=== PATIENT | male | born 1975 | race African-American/Black ===

== ENCOUNTER 2016-08-19 09:59 | Emergency (ER) | payer SELFPAY ==
[2016-08-19] MEDS ORDERED: ONDANSETRON ODT 4 MG TAB PO STA (11:20)
[2016-08-19] MEDS ORDERED: KETOROLAC 60 MG/2 ML VIAL IM STA (11:20)
[2016-08-19] MEDS ORDERED: ONDANSETRON 4 MG ODT STARTER PACK 2 TAB BTL PO STA (11:20)
--- NOTE | 2016-08-19 11:49 | ED ---
General Adult HPI - General Chief complaint: Chest Pain Stated complaint: Chest Pain Time Seen by Provider: 08/19/16 10:30 Source: patient, RN notes reviewed Mode of arrival: ambulatory Limitations: no limitations - History of Present Illness Initial comments: This is a 41-year-old male who presents to the emergency department complaining of anterior chest wall pain. Patient states it started yesterday and again as occurring today per patient states it only occurs when he takes a deep breath or he presses on the area on his left pectoris muscle. Patient states he also vomited twice today when he got to work he states he just became nauseous and started vomiting per patient denies any diarrhea. Patient denies any recent fevers or chills. Patient denies any cough or cold-like symptoms. Patient does not recall hurting his pectoral muscle in any way but states if he lays in bed and does not take a deep breath it does not hurt at all. Patient states the pain is sharp and short in duration lasting only one to 2 seconds at a time. - Related Data Home Medications Medication Instructions Recorded Confirmed Phenytoin Sodium Extended 400 mg PO DAILY 11/18/15 08/19/16 [Dilantin] Allergies Allergy/AdvReac Type Severity Reaction Status Date / Time No Known Allergies Allergy Verified 08/19/16 11:07 Review of Systems ROS Statement: Those systems with pertinent positive or pertinent negative responses have been documented in the HPI. ROS Other: All systems not noted in ROS Statement are negative. Past Medical History Past Medical History: Seizure Disorder History of Any Multi-Drug Resistant Organisms: None Reported Past Surgical History: Orthopedic Surgery Additional Past Surgical History / Comment(s): arm Past Psychological History: No Psychological Hx Reported Smoking Status: Current every day smoker Past Alcohol Use History: None Reported Past Drug Use History: None Reported General Exam - General Exam Comments Initial Comments: GENERAL: Patient is well-developed and well-nourished. Patient is nontoxic and well- hydrated and is in no acute distress. ENT: Neck is soft and supple. No significant lymphadenopathy is noted. Oropharynx is clear. Moist mucous membranes. Neck has full range of motion without eliciting any pain. EYES: The sclera were anicteric and conjunctiva were pink and moist. Extraocular movements were intact and pupils were equal round and reactive to light. Eyelids were unremarkable. PULMONARY: Unlabored respirations. Good breath sounds bilaterally. No audible rales rhonchi or wheezing was noted. CARDIOVASCULAR: There is a regular rate and rhythm without any murmurs gallops or rubs. Chest pain is reproducible on palpation ABDOMEN: Soft and nontender with normal bowel sounds. No palpable organomegaly was noted. There is no palpable pulsatile mass. SKIN: Skin is clear with no lesions or rashes and otherwise unremarkable. NEUROLOGIC: Patient is alert and oriented x3. Cranial nerves II through XII are grossly intact. Motor and sensory are also intact. Normal speech, volume and content. Symmetrical smile. MUSCULOSKELETAL: Normal extremities with adequate strength and full range of motion. No lower extremity swelling or edema. No calf tenderness. LYMPHATICS: No significant lymphadenopathy is noted PSYCHIATRIC: Normal psychiatric evaluation. Normal interpersonal interactions appears functionally intact in deals appropriately with others. No signs of depression. No signs of anxiety. Limitations: no limitations Course Vital Signs 08/19/16 08/19/16 08/19/16 10:26 11:19 11:27 Temperature 98.7 F Pulse Rate 71 65 Pulse Rate [ 60 Radial] Respiratory 18 15 Rate Blood Pressure 106/51 141/84 O2 Sat by Pulse 100 100 Oximetry Medical Decision Making - Medical Decision Making EKG shows a normal sinus rhythm at 66 bpm [place] interval is 148 QRS is 94 QT interval 3-4 QTC is 402. Patient's EKG shows no ST segment elevation or depression or T-wave abdomen is noted I spent greater than 3 minutes speaking to the patient about smoking cessation and the side effects of long-term smoking. I gave the patient some literature on stopping smoking as well as some ideas that I have. Disposition Clinical Impression: Chest wall pain Disposition: HOME SELF-CARE Instructions: Chest Wall Pain (ED), How to Stop Smoking (ED) Additional Instructions: Patient should take Motrin 600 mg by mouth every 6 hours. Patient should stop smoking. Referrals: None,Stated [Primary Care Provider] - 1-2 days Time of Disposition: 12:32
--- NOTE | 2016-08-19 12:02 | XR ---
EXAMINATION TYPE: XR chest 2V DATE OF EXAM: 08/19/2016 11:57 AM COMPARISON: NONE HISTORY: Chest pain and nausea. Difficulty in breathing. TECHNIQUE: Frontal and lateral views of the chest are obtained. FINDINGS: There is no focal air space opacity, pleural effusion, or pneumothorax seen. The cardiac silhouette size is within normal limits. The osseous structures are intact. IMPRESSION: No acute cardiopulmonary process.
[2016-08-19 12:44] VITALS: BP 99/62; PULSE 71; RESP 18; TEMP 98.2
== END 2016-08-19 12:43 | disposition home or self-care (01) ==
LOC: EC 09:59
DX: R07.89 Other chest pain (principal); R11.2 Nausea with vomiting, unspecified; F17.200 Nicotine dependence, unspecified, uncomplicated; G40.909 Epilepsy, unspecified, not intractable, without status epilepticus; Z79.899 Other long term (current) drug therapy
CPT/HCPCS: 93005; 71020; 99285; 96372; J1885; S0119

== ENCOUNTER 2016-09-23 14:12 | Emergency (ER) | payer BC ==
[2016-09-23 14:25] VITALS: BP 126/65; PULSE 78; RESP 16; TEMP 98.2
--- NOTE | 2016-09-23 14:37 | ED ---
Skin/Abscess/FB HPI - General Chief complaint: Skin/Abscess/Foreign Body Stated complaint: facial lump Time Seen by Provider: 09/23/16 14:23 Source: patient, RN notes reviewed Mode of arrival: ambulatory Limitations: no limitations - History of Present Illness Initial comments: 41-year-old male presents to the emergency Department chief complaint of left- sided facial abscess. Patient states that he has had this swollen area for the past few weeks. Patient states she's been applying the triple antibiotic ointment however it is not improving. Patient states has been no fever chills. Patient is more firm. Patient states she was concerned due to the continued symptoms that he should be evaluated.Patient denies any recent fever, chills, shortness of breath, chest pain, back pain, abdominal pain, nausea vomiting, numbness or tingling, dysuria or hematuria, constipation or diarrhea, headaches or visual changes, or any other current symptoms. - Related Data Home Medications Medication Instructions Recorded Confirmed Phenytoin Sodium Extended 400 mg PO DAILY 11/18/15 08/19/16 [Dilantin] Previous Rx's Medication Instructions Recorded Sulfamethox-Tmp 800-160Mg [Bactrim 2 each PO Q12HR #56 tab 09/23/16 DS 800-160 mg] Allergies Allergy/AdvReac Type Severity Reaction Status Date / Time No Known Allergies Allergy Verified 09/23/16 14:25 Review of Systems ROS Statement: Those systems with pertinent positive or pertinent negative responses have been documented in the HPI. ROS Other: All systems not noted in ROS Statement are negative. Past Medical History Past Medical History: Seizure Disorder History of Any Multi-Drug Resistant Organisms: None Reported Past Surgical History: Orthopedic Surgery Additional Past Surgical History / Comment(s): arm Past Psychological History: No Psychological Hx Reported Smoking Status: Current every day smoker Past Alcohol Use History: None Reported Past Drug Use History: None Reported General Exam Limitations: no limitations General appearance: alert, in no apparent distress Head exam: Present: other (Patient has a small abscess to the left cheek with some induration) Eye exam: Present: normal appearance, PERRL, EOMI. Absent: scleral icterus, conjunctival injection, periorbital swelling ENT exam: Present: normal exam, mucous membranes moist Neck exam: Present: normal inspection. Absent: tenderness, meningismus, lymphadenopathy Respiratory exam: Present: normal lung sounds bilaterally. Absent: respiratory distress, wheezes, rales, rhonchi, stridor Cardiovascular Exam: Present: regular rate, normal rhythm, normal heart sounds. Absent: systolic murmur, diastolic murmur, rubs, gallop, clicks Neurological exam: Present: alert, oriented X3 Psychiatric exam: Present: normal affect, normal mood Skin exam: Present: warm, dry Course Vital Signs 09/23/16 14:22 Temperature 98.2 F Pulse Rate 78 Respiratory 16 Rate Blood Pressure 126/65 O2 Sat by Pulse 99 Oximetry Medical Decision Making - Medical Decision Making 41-year-old female presents with left-sided facial abscess. This time 18-gauge needle was used to excise limited. Some purulent material. Patient was placed on antibiotics discussed warm compresses. We discussed care follow-up and return parameters. We discussed all the patient's questions. He stated he understood they are negative) Discharged home. Disposition Clinical Impression: Facial abscess Disposition: HOME SELF-CARE Condition: Stable Instructions: Abscess (ED) Additional Instructions: Please use medication as discussed. Please follow up with family doctor if symptoms have not improved over the next two days. Please return to the emergency room if your symptoms increase or worsen or for any other concerns. Prescriptions: Sulfamethox-Tmp 800-160Mg [Bactrim DS 800-160 mg] 2 each PO Q12HR #56 tab Referrals: None,Stated [Primary Care Provider] - 1-2 days Carmita Foote MD [STAFF PHYSICIAN] - 1-2 days Time of Disposition: 14:36
== END 2016-09-23 14:47 | disposition home or self-care (01) ==
LOC: EC 14:12
DX: L02.01 Cutaneous abscess of face (principal); G40.909 Epilepsy, unspecified, not intractable, without status epilepticus; F17.200 Nicotine dependence, unspecified, uncomplicated; Z79.899 Other long term (current) drug therapy
CPT/HCPCS: 10060; 99283

== ENCOUNTER 2017-09-08 15:18 | Emergency (ER) | payer BC ==
[2017-09-08 15:28] VITALS: RESP 20; TEMP 98.4
[2017-09-08 16:17] LABS: Basophils % (A) 0 %; Eosinophils % (A) 1 %; Lymphocytes # (A) 1.4 k/uL (1.0-4.8); Lymphocytes % (A) 37 %; MCH 27.2 pg (25.0-35.0); MCHC 32.6 g/dL (31.0-37.0); MCV 83.5 fL (80.0-100.0); Mean Platelet Volume 6.9; Monocytes # (A) 0.2 k/uL (0-1.0); Monocytes % (A) 6 %; Neutrophils % (A) 53 %; Platelet Count 268 k/uL (150-450); RBC 5.15 m/uL (4.30-5.90); RDW 13.6 % (11.5-15.5); WBC 3.8 k/uL (3.8-10.6)
[2017-09-08 16:30] LABS: ALT 30 U/L (21-72); AST 20 U/L (17-59); Albumin 4.4 g/dL (3.5-5.0); Alkaline Phosphatase 116 U/L (38-126); Anion Gap 9 mmol/L; Blood Urea Nitrogen 12 mg/dL (9-20); Calcium 9.6 mg/dL (8.4-10.2); Carbon Dioxide 27 mmol/L (22-30); Chloride 106 mmol/L (98-107); Glucose 95 mg/dL (74-99); Potassium 4.1 mmol/L (3.5-5.1); Sodium 142 mmol/L (137-145); Total Bilirubin 0.3 mg/dL (0.2-1.3); Total Protein 7.2 g/dL (6.3-8.2)
[2017-09-08] MEDS ORDERED: SODIUM CHLORIDE 0.9% 500 ML IV STA (16:46)
[2017-09-08] MEDS ORDERED: LORazepam 2 MG/ML INJ IV STA (16:46)
--- NOTE | 2017-09-08 16:52 | ED ---
General Adult HPI - General Chief complaint: Seizure Stated complaint: seizure Time Seen by Provider: 09/08/17 16:27 Source: patient, family, RN notes reviewed, old records reviewed Mode of arrival: wheelchair Limitations: no limitations - History of Present Illness Initial comments: Chief complaint history of present illness a 42-year-old male comes emergency room with his . Patient reports he has sensation is going to have a seizure. He can't describe exactly how it feels but he says in the past when he feels the way he does now he has had seizures. He is on Dilantin daily 300 in the morning 200 mg in the evening. He denies having missed any doses. He is denying any headache or chest pain or shortness breath GI/ problems. No injuries lately. He states he is fatigued because he works 6 days a week. He just gotten to work at 2 PM when he didn't feel well called his came in emergency room. - Related Data Home Medications Medication Instructions Recorded Confirmed Phenytoin Sodium Extended 200 mg PO HS 09/08/17 09/08/17 [Dilantin] Phenytoin Sodium Extended 300 mg PO DAILY 09/08/17 09/08/17 [Dilantin] Allergies Allergy/AdvReac Type Severity Reaction Status Date / Time No Known Allergies Allergy Verified 09/08/17 17:00 Review of Systems ROS Statement: Those systems with pertinent positive or pertinent negative responses have been documented in the HPI. review of systems. Minimal headache no visual acuity changes just doesn't feel well. No chest pain shortness breath GI/. No neuro deficits. His sensation of might have a seizure which she has had in the past. He's been having seizures for over 20 years. As noted above he takes Dilantin 300 mg morning and 200 mg in the evening. All systems were reviewed. Past medical problems significant for seizure disorder for the past 20 years no known cause. The patient's surgeries include orthopedic surgery on his right arm after having punched a window. The patient's family history no cancers. Patient denies any ALLERGIES. He does smoke and is encouraged to stop he denies alcohol use. ROS Other: All systems not noted in ROS Statement are negative. Past Medical History Past Medical History: Seizure Disorder History of Any Multi-Drug Resistant Organisms: None Reported Past Surgical History: Orthopedic Surgery Additional Past Surgical History / Comment(s): arm Past Anesthesia/Blood Transfusion Reactions: No Reported Reaction Past Psychological History: Depression Smoking Status: Current every day smoker Past Alcohol Use History: None Reported Past Drug Use History: None Reported - Past Family History Mother Family Medical History: No Reported History Father History Unknown: Yes General Exam - General Exam Comments Initial Comments: General: The patient is awake and alert, states he feels a might have a seizure., Just doesn't feel well. Vital signs show temp 98.4 pulse 70 respiratory rate 20 pulse ox on percent room air blood pressure 120/64 Eye: Pupils are equal, round and reactive to light, extra-ocular movements are intact ; there is normal conjunctiva bilaterally. No signs of icterus. Ears, nose, mouth and throat: There are moist mucous membranes . Neck: The neck is supple,chin to chest without discomfort, no meningismus. Cardiovascular: There is a regular rate and rhythm. No murmur, rub or gallop is appreciated. Respiratory: Lungs are clear to auscultation, respirations are non-labored, breath sounds are equal. No wheezes, stridor, rales, or rhonchi. Gastrointestinal: Soft, non-distended, non-tender abdomen without masses or organomegaly noted. There is no rebound or guarding present.denies flank pain Back: denies back pain Musculoskeletal: Normal ROM, no tenderness, There is no pedal edema. There is no calf tenderness or swelling. Sensation intact. evidence of extensive surgery on the right arm where years ago he punched a piece glass window. Neurological: CN II-XII intact, There are no obvious motor or sensory deficits. Coordination appears grossly intact. Speech is normal.no neuro deficits. Cranial nerves II through XII are intact. Skin: Skin is warm and dry and no rashes or lesions are noted. Psychiatric: flat affect. Limitations: no limitations Course Vital Signs 09/08/17 09/08/17 15:27 18:03 Temperature 98.4 F Pulse Rate 72 66 Respiratory 20 Rate Blood Pressure 120/64 133/68 O2 Sat by Pulse 100 99 Oximetry EKG Findings - EKG Comments: EKG Findings:: EKG was done and reviewed at 1651 showing normal sinus rhythm, no acute ST elevation or ectopy no ischemic changes. Rate 61. Was 152 QRS [address] Cunningham Medical Decision Making - Medical Decision Making medical decision making; the patient's here because he felt like he might have a seizure. He states she's felt this way before when he has had seizures. He takes Dilantin twice a day 300 mg morning 200 mg in the evening. While at work today he started feeling funny called his , she brought him to the emergency room. Patient states he has not missed any doses of his Dilantin. He does work 5-6 days per week and has been fatigued. Patient received IV fluids and 1 mg of Ativan. The patient's labs show white count of 3.8 hemoglobin 14 hematocrit of 43, potassium 4.1 with a BUN 12 creatinine 0.8 GFR greater than 90. Glucose 95. Dilantin level is 9.9. Therapeutic is between 10 and 20. The patient will receive 400 mg Dilantin IV piggyback. He is feeling better now than IV Ativan.Patient advised to call follow-up with his neurologist tomorrow concerning his dosages. - Lab Data Result diagrams: 09/08/17 16:08 09/08/17 16:08 Lab Results 09/08/17 09/08/17 09/08/17 Range/Units 16:08 16:08 16:08 WBC 3.8 (3.8-10.6) k/uL RBC 5.15 (4.30-5.90) m/uL Hgb 14.0 (13.0-17.5) gm/dL Hct 43.0 (39.0-53.0) % MCV 83.5 (80.0-100.0) fL MCH 27.2 (25.0-35.0) pg MCHC 32.6 (31.0-37.0) g/dL RDW 13.6 (11.5-15.5) % Plt Count 268 (150-450) k/uL Neutrophils % 53 % Lymphocytes % 37 % Monocytes % 6 % Eosinophils % 1 % Basophils % 0 % Neutrophils # 2.0 (1.3-7.7) k/uL Lymphocytes # 1.4 (1.0-4.8) k/uL Monocytes # 0.2 (0-1.0) k/uL Eosinophils # 0.0 (0-0.7) k/uL Basophils # 0.0 (0-0.2) k/uL Sodium 142 (137-145) mmol/L Potassium 4.1 (3.5-5.1) mmol/L Chloride 106 (98-107) mmol/L Carbon Dioxide 27 (22-30) mmol/L Anion Gap 9 mmol/L BUN 12 (9-20) mg/dL Creatinine 0.80 (0.66-1.25) mg/dL Est GFR (CKD-EPI)AfAm >90 (>60 ml/min/1.73 sqM) Est GFR (CKD-EPI)NonAf >90 (>60 ml/min/1.73 sqM) Glucose 95 (74-99) mg/dL Calcium 9.6 (8.4-10.2) mg/dL Total Bilirubin 0.3 (0.2-1.3) mg/dL AST 20 (17-59) U/L ALT 30 (21-72) U/L Alkaline Phosphatase 116 (38-126) U/L Total Protein 7.2 (6.3-8.2) g/dL Albumin 4.4 (3.5-5.0) g/dL Phenytoin 9.2 ug/mL Disposition Clinical Impression: Subtherapeutic phenytoin level Disposition: HOME SELF-CARE Condition: Fair Instructions: Epilepsy (ED) Additional Instructions: Continue with medications. Call neurologist to see if an increase in Dilantin is necessary. Try to get rest. Referrals: Carole Clark MD [Primary Care Provider] - 1-2 days Time of Disposition: 18:27
[2017-09-08] MEDS ORDERED: PHENYTOIN SODIUM INJ 400 MG in SODIUM CHLORIDE 0.9% 100 ML IVPB STA (17:37)
[2017-09-08 18:06] VITALS: BP 133/68; PULSE 66
== END 2017-09-08 18:39 | disposition home or self-care (01) ==
LOC: EC 15:18
DX: R89.2 Abnormal level of other drugs, medicaments and biological substances in specimens from other organs, systems and tissues (principal); R53.83 Other fatigue; G40.909 Epilepsy, unspecified, not intractable, without status epilepticus; F17.200 Nicotine dependence, unspecified, uncomplicated; Z79.899 Other long term (current) drug therapy
CPT/HCPCS: 36415; 93005; 80053; 80185; 85025; 99284; 96365; 96375; 96361; J2060; J1165

== ENCOUNTER 2017-10-14 09:50 | Observation (INO) | payer BC ==
[2017-10-14] MEDS ORDERED: LORazepam 2 MG/ML INJ IV STA ×2 (10:11→10:30)
[2017-10-14] MEDS ORDERED: SODIUM CHLORIDE 0.9% 1,000 ML IV STA (10:11)
[2017-10-14] MEDS ORDERED: METOCLOPRAMIDE 5 MG/ML 2 ML VIAL IVP STA (10:12)
--- NOTE | 2017-10-14 10:15 | ED ---
General Adult HPI - General Chief complaint: Headache Stated complaint: Seizure Time Seen by Provider: 10/14/17 10:04 Source: patient, family, RN notes reviewed, old records reviewed Mode of arrival: EMS Limitations: no limitations - History of Present Illness Initial comments: 42-year-old male with history of seizure disorder presents with chief complaint headache and concern for impending seizure. According to the patient's who does give the majority the history, he has been awake for the past 10 hours following a shift at work. His been restless, smoking cigarettes one after another. He does do this prior to seizure. He is currently on Dilantin. He does not believe he took his medication today. Patient has no other known medical history. Patient complains of a global headache which was gradual in onset. Denies fever or chills. Denies chest pain or shortness of breath. Denies any drugs of abuse. - Related Data Home Medications Medication Instructions Recorded Confirmed Phenytoin Sodium Extended 200 mg PO HS 09/08/17 10/14/17 [Dilantin] Phenytoin Sodium Extended 300 mg PO DAILY 09/08/17 10/14/17 [Dilantin] Allergies Allergy/AdvReac Type Severity Reaction Status Date / Time No Known Allergies Allergy Verified 10/14/17 10:22 Review of Systems ROS Statement: Those systems with pertinent positive or pertinent negative responses have been documented in the HPI. ROS Other: All systems not noted in ROS Statement are negative. Past Medical History Past Medical History: Seizure Disorder History of Any Multi-Drug Resistant Organisms: None Reported Past Surgical History: Orthopedic Surgery Additional Past Surgical History / Comment(s): arm Past Anesthesia/Blood Transfusion Reactions: No Reported Reaction Past Psychological History: Depression Smoking Status: Current every day smoker Past Alcohol Use History: None Reported Past Drug Use History: None Reported - Past Family History Mother Family Medical History: No Reported History Father History Unknown: Yes General Exam Limitations: no limitations General appearance: alert, in no apparent distress Head exam: Present: atraumatic, normocephalic Eye exam: Present: normal appearance. Absent: PERRL (Pupils are 2 mm and sluggish bilaterally) ENT exam: Present: mucous membranes dry Neck exam: Present: normal inspection. Absent: tenderness, meningismus Respiratory exam: Present: normal lung sounds bilaterally. Absent: respiratory distress, wheezes Cardiovascular Exam: Present: regular rate, normal rhythm GI/Abdominal exam: Present: soft. Absent: distended, tenderness Extremities exam: Present: normal inspection, normal capillary refill. Absent: pedal edema Neurological exam: Present: alert. Absent: oriented X3 (Oriented to person and place, not date), motor sensory deficit Psychiatric exam: Present: flat affect Skin exam: Present: warm, dry, intact. Absent: cyanosis, diaphoretic Course Vital Signs 10/14/17 10/14/17 10/14/17 09:55 10:54 12:37 Temperature 98.2 F Pulse Rate 76 104 H 87 Respiratory 16 16 16 Rate Blood Pressure 124/70 141/67 137/67 O2 Sat by Pulse 100 99 99 Oximetry - Reevaluation(s) Reevaluation #1: 10/14/17 10:36 Patient has 4 minute tonic-clonic seizure in the emergency department this was witnessed by myself. Given total of 3 mg of Ativan. Currently postictal. 10/14/17 10:36 EKG Findings - EKG Comments: EKG Findings:: EKG, sinus tachycardia, ventricular rate 104, MT interval 142, QRS duration 100, QTC 465, no arrhythmia or definitive signs of ischemia Medical Decision Making - Medical Decision Making 42-year-old male presenting with headache, concern for impending seizure. He did miss a dose of his Dilantin. Patient has a tonic-clonic seizure in the emergency department lasting approximate 45 minutes. This is reversed with 3 mg of IV Ativan. Laboratory studies reveal normal CBC, normal x-rays, Dilantin level is subtherapeutic at 5.4. Patient is given a 400 mg IV load of Dilantin in the emergency department. On reevaluation, patient remains postictal, he has not returned to baseline. is concerned as in the past when his Dilantin level has been low he has had multiple seizures. Patient will be placed in observation awaiting therapeutic Dilantin level and normal mental status. Head CT is obtained, negative for any acute intracranial pathology Diagnosis: Seizure, subtherapeutic Dilantin level, prolonged postictal Case is discussed with Dr. Arana, he will accept admission. - Lab Data Result diagrams: 10/14/17 10:06 10/14/17 10:06 Lab Results 10/14/17 10/14/17 Range/Units 10:06 10:06 WBC 3.8 (3.8-10.6) k/uL RBC 5.01 (4.30-5.90) m/uL Hgb 13.8 (13.0-17.5) gm/dL Hct 40.7 (39.0-53.0) % MCV 81.2 (80.0-100.0) fL MCH 27.5 (25.0-35.0) pg MCHC 33.8 (31.0-37.0) g/dL RDW 13.2 (11.5-15.5) % Plt Count 267 (150-450) k/uL Neutrophils % 60 % Lymphocytes % 27 % Monocytes % 9 % Eosinophils % 1 % Basophils % 0 % Neutrophils # 2.3 (1.3-7.7) k/uL Lymphocytes # 1.0 (1.0-4.8) k/uL Monocytes # 0.3 (0-1.0) k/uL Eosinophils # 0.0 (0-0.7) k/uL Basophils # 0.0 (0-0.2) k/uL Sodium 142 (137-145) mmol/L Potassium 3.5 (3.5-5.1) mmol/L Chloride 104 (98-107) mmol/L Carbon Dioxide 26 (22-30) mmol/L Anion Gap 12 mmol/L BUN 13 (9-20) mg/dL Creatinine 0.73 (0.66-1.25) mg/dL Est GFR (CKD-EPI)AfAm >90 (>60 ml/min/1.73 sqM) Est GFR (CKD-EPI)NonAf >90 (>60 ml/min/1.73 sqM) Glucose 110 H (74-99) mg/dL Calcium 9.1 (8.4-10.2) mg/dL Total Bilirubin 0.3 (0.2-1.3) mg/dL AST 30 (17-59) U/L ALT 36 (21-72) U/L Alkaline Phosphatase 102 (38-126) U/L Total Protein 6.6 (6.3-8.2) g/dL Albumin 4.0 (3.5-5.0) g/dL Salicylates <1.0 mg/dL Acetaminophen <10.0 ug/mL Phenytoin 5.4 ug/mL Disposition Clinical Impression: Generalized seizure, Postictal state Disposition: ADMITTED IP TO THIS [facility] Condition: Stable Referrals: Carole Clark MD [Primary Care Provider] - 1-2 days Decision to Admit Reason: Admit from EC Decision Date: 10/14/17 Decision Time: 12:36
[2017-10-14 10:26] LABS: Basophils % (A) 0 %; Eosinophils % (A) 1 %; HCT 40.7 % (39.0-53.0); HGB 13.8 gm/dL (13.0-17.5); Lymphocytes % (A) 27 %; MCH 27.5 pg (25.0-35.0); MCHC 33.8 g/dL (31.0-37.0); MCV 81.2 fL (80.0-100.0); Mean Platelet Volume 6.8; Monocytes # (A) 0.3 k/uL (0-1.0); Monocytes % (A) 9 %; Neutrophils # (A) 2.3 k/uL (1.3-7.7); Neutrophils % (A) 60 %; Platelet Count 267 k/uL (150-450); RBC 5.01 m/uL (4.30-5.90); RDW 13.2 % (11.5-15.5); WBC 3.8 k/uL (3.8-10.6)
[2017-10-14 10:33] LABS: ALT 36 U/L (21-72); AST 30 U/L (17-59); Acetaminophen <10.0 ug/mL; Alkaline Phosphatase 102 U/L (38-126); Anion Gap 12 mmol/L; Blood Urea Nitrogen 13 mg/dL (9-20); Calcium 9.1 mg/dL (8.4-10.2); Carbon Dioxide 26 mmol/L (22-30); Chloride 104 mmol/L (98-107); Glucose 110 mg/dL (74-99); Potassium 3.5 mmol/L (3.5-5.1); Salicylate <1.0 mg/dL; Sodium 142 mmol/L (137-145); Total Bilirubin 0.3 mg/dL (0.2-1.3); Total Protein 6.6 g/dL (6.3-8.2)
--- NOTE | 2017-10-14 11:17 | CT ---
EXAMINATION TYPE: CT brain wo con DATE OF EXAM: 10/14/2017 COMPARISON: Prior CT brain June 19, 2017 HISTORY: Seizure CT DLP: 1072.3 mGycm. Automated Exposure Control for Dose Reduction was Utilized. TECHNIQUE: CT scan of the head is performed without contrast. FINDINGS: There is no acute intracranial hemorrhage, mass effect, or midline shift identified. The ventricles and sulci are within normal limits in size. There is redemonstration of 1.1 cm mucous ret ention cyst or polyp in the anterior lateral right maxillary sinus on axial image 8. The globes are i ntact and the visualized sinuses otherwise are clear. Persistent soft tissue density right external a uditory canals felt to reflect cerumen. IMPRESSION: No acute intracranial hemorrhage or midline shift is seen. No significant change from pr ior.
[2017-10-14 11:22] LABS: Phenytoin (Dilantin) 5.4 ug/mL
[2017-10-14] MEDS ORDERED: PHENYTOIN SODIUM INJ 400 MG in SODIUM CHLORIDE 0.9% 100 ML IVPB STA (11:49)
[2017-10-14] MEDS ORDERED: NALOXONE 0.4 MG/ML 1 ML VIAL IV PRN (12:37)
[2017-10-14] MEDS ORDERED: LORazepam 2 MG/ML INJ IV PRN ×2 (12:38→16:48)
[2017-10-14] MEDS ORDERED: NICOTINE 21MG/24HR PATCH TRANSDERM STA (12:48)
[2017-10-14] MEDS ORDERED: IBUPROFEN 600 MG TAB PO SCH (16:00)
[2017-10-14] MEDS: IBUPROFEN 600 MG TAB PO PRN ×2 (16:26→23:01)
--- NOTE | 2017-10-14 17:49 | P.HPIM ---
History of Present Illness 42-year-old the female with came in with the seizures patient is up to be confined patient evidently has couple seizures from the clinic actively without any loss of bowel or bladder incontinence patient always has an aura and the patient today in ER patient had a tonic-clonic seizure which is evidenced by the ER physician . patient's Dilantin levels are subtherapeutic. Patient takes 300 in the morning and 200 mg in the evening Dilantin patient patient was loaded with Dilantin and was admitted to the floor patient will be resumed on his home dose tomorrow morning Dilantin levels will be obtained neurology will be consulted patient is on seizure precautions is also on as needed Ativan seizures patient denied any significant head trauma although he had had trauma when he was a cared and patient was diagnosed with seizures at age 20. Patient denied any fever chills nausea vomiting photophobia dysuria. Review of Systems REVIEW OF SYSTEMS: CONSTITUTIONAL: No fever, no malaise, no fatigue. HEENT: No recent visual problems or hearing problems. Denied any sore throat. CARDIOVASCULAR: No chest pain, orthopnea, PND, no palpitations, no syncope. PULMONARY: No shortness of breath, no cough, no hemoptysis. GASTROINTESTINAL: No diarrhea, no nausea, no vomiting, no abdominal pain. Normoactive bowel sounds. NEUROLOGICAL: No headaches, no weakness, no numbness. HEMATOLOGICAL: Denies any bleeding or petechiae. GENITOURINARY: Denies any burning micturition, frequency, or urgency. MUSCULOSKELETAL/RHEUMATOLOGICAL: Denies any joint pain, swelling, or any muscle pain. ENDOCRINE: Denies any polyuria or polydipsia. The rest of the 14-point review of systems is negative. Past Medical History Past Medical History: Seizure Disorder Additional Past Medical History / Comment(s): Last seizure 10/14/17, pt put R arm thru window glass and had injuries with severe blood loss and had to have CPR. History of Any Multi-Drug Resistant Organisms: None Reported Past Surgical History: Orthopedic Surgery Additional Past Surgical History / Comment(s): R arm/R hand surgery d/t injuries. Past Anesthesia/Blood Transfusion Reactions: No Reported Reaction Additional Past Anesthesia/Blood Transfusion Reaction / Comment(s): Pt received blood in past without reaction. Smoking Status: Current every day smoker - Past Family History Mother Family Medical History: No Reported History Additional Family Medical History / Comment(s): Mother is healthy. Father History Unknown: Yes Family Medical History: No Reported History Additional Family Medical History / Comment(s): Father is healthy Medications and Allergies Home Medications Medication Instructions Recorded Confirmed Type Phenytoin Sodium Extended 200 mg PO HS 09/08/17 10/14/17 History [Dilantin] Phenytoin Sodium Extended 300 mg PO DAILY 09/08/17 10/14/17 History [Dilantin] Allergies Allergy/AdvReac Type Severity Reaction Status Date / Time No Known Allergies Allergy Verified 10/14/17 10:22 Physical Exam Vitals: Vital Signs Temp Pulse Pulse Resp BP BP Pulse Ox 10/14/17 16:00 98 F 90 18 124/72 10/14/17 14:55 75 10/14/17 13:31 98.9 F 85 16 135/68 99 10/14/17 12:37 87 16 137/67 99 10/14/17 10:54 104 H 16 141/67 99 10/14/17 09:55 98.2 F 76 16 124/70 100 Intake and Output 10/14/17 10/14/17 10/14/17 06:59 14:59 22:59 Other: # Voids 2 # Bowel Movements 0 Weight 72.575 kg PHYSICAL EXAMINATION: GENERAL: The patient is alert and oriented x3, not in any acute distress. Well developed, well nourished. HEENT: Pupils are round and equally reacting to light. EOMI. No scleral icterus. No conjunctival pallor. Normocephalic, atraumatic. No pharyngeal erythema. No thyromegaly. CARDIOVASCULAR: S1 and S2 present. No murmurs, rubs, or gallops. PULMONARY: Chest is clear to auscultation, no wheezing or crackles. ABDOMEN: Soft, nontender, nondistended, normoactive bowel sounds. No palpable organomegaly. MUSCULOSKELETAL: No joint swelling or deformity. EXTREMITIES: No cyanosis, clubbing, or pedal edema. NEUROLOGICAL: Gross neurological examination did not reveal any focal deficits. SKIN: No rashes. Results CBC & Chem 7: 10/14/17 10:06 10/14/17 10:06 Labs: Abnormal Lab Results - Last 24 Hours (Table) 10/14/17 Range/Units 10:06 Glucose 110 H (74-99) mg/dL Thrombosis Risk Factor Assmnt - Choose All That Apply Any of the Below Risk Factors Present?: Yes Each Factor Represents 1 point: Heart failure (<1month) Other Risk Factors: No Other congenital or acquired thrombophilia - If yes, enter type in comment: No Thrombosis Risk Factor Assessment Total Risk Factor Score: 1 Thrombosis Risk Factor Assessment Level: Low Risk Assessment and Plan Plan: -Seizures: Secondary to subtherapeutic Dilantin. Patient says he does take his medications on regular basis. Neurology was consulted patient will be started back on Dilantin and was loaded with Dilantin. EEG was ordered -Nicotine abuse: Counseling was provided
[2017-10-14 17:56] LABS: Basophils % (A) 0 %; Eosinophils % (A) 1 %; HCT 38.3 % (39.0-53.0); HGB 12.8 gm/dL (13.0-17.5); Lymphocytes # (A) 1.4 k/uL (1.0-4.8); Lymphocytes % (A) 28 %; MCH 27.7 pg (25.0-35.0); MCHC 33.3 g/dL (31.0-37.0); Mean Platelet Volume 6.6; Monocytes # (A) 0.3 k/uL (0-1.0); Monocytes % (A) 6 %; Neutrophils # (A) 3.3 k/uL (1.3-7.7); Neutrophils % (A) 63 %; Platelet Count 262 k/uL (150-450); RBC 4.62 m/uL (4.30-5.90); RDW 13.2 % (11.5-15.5); WBC 5.2 k/uL (3.8-10.6)
[2017-10-14] MEDS: SODIUM CHLORIDE 0.9% 1,000 ML IV SCH (17:57)
[2017-10-14] MEDS ORDERED: PHENYTOIN SODIUM EXTENDED 100 MG CAP PO SCH (21:00)
[2017-10-15 00:02] LABS: Amphetamine Screen,Urine Not Detected (NotDetected); Barbiturate Screen,Urine Detected (NotDetected); Benzodiazepines Screen,Urine Detected (NotDetected); Cocaine Screen,Urine Not Detected (NotDetected); Methadone Screen, Urine Not Detected (NotDetected); Opiate Screen,Urine Not Detected (NotDetected); Oxycodone Screen, Urine Not Detected (NotDetected); Phencyclidine Screen,Urine Not Detected (NotDetected); Tricyclic Antidepressant,Urine Not Detected (NotDetected); Urn Cannabinoid Scrn Not Detected (NotDetected)
--- NOTE | 2017-10-15 06:30 | CONS ---
CONSULTATION DATE OF CONSULTATION: 10/14/2017 CHIEF COMPLAINT: Seizure. HISTORY OF PRESENT ILLNESS: Mr. Parikh is a 42-year-old, male, who is being evaluated by the neurology service per the request of Dr. Rhodes for a breakthrough seizure. The patient has a long-standing history of seizure disorder and is on Dilantin 300 mg q.a.m. and 200 mg at bedtime at home. The patient was brought into [facility] Emergency Room by his who noticed that he was not acting right. She was concerned because he sometimes feels this way prior to having a seizure. While in the waiting room, he had a generalized tonic colonic seizure. This was followed by postictal confusion and drowsiness. A CT scan of the brain was done, which was normal. His CBC and comprehensive metabolic profiles were normal. His Dilantin level was found to be subtherapeutic at 5.4. The patient was admitted for further workup and management and was given a loading dose of IV Dilantin. At the time of my evaluation, he is lying in his bed and appears to be in no acute distress. The patient states that he is usually compliant with his Dilantin dose, but sometimes is unable to take his medication due to his work hours. He has been restarted on his home dose. The patient is currently on seizure precautions and he has not had any further seizures since his admission. The patient does not drive. PAST MEDICAL HISTORY: Seizure disorder, history of orthopedic surgeries, depression. SOCIAL HISTORY: The patient is a current every day smoker. He denies any alcohol or drug use. FAMILY HISTORY: Noncontributory. HOME MEDICATIONS: Reviewed in the chart. ALLERGIES: No known drug allergies. REVIEW OF SYSTEMS: CONSTITUTIONAL: Positive for fatigue. EYES: Negative. ENT: Negative. CARDIOVASCULAR: Negative. RESPIRATORY: Negative. NEUROLOGICAL: As mentioned above. GASTROINTESTINAL: Negative. GENITOURINARY: Negative. PSYCHIATRIC: Positive for history of depression. MUSCULOSKELETAL: Negative. DERMATOLOGICAL: Negative. ENDOCRINE: Negative. PHYSICAL EXAM: Vital signs show a temperature of 98.9, pulse 75, respirations 16, blood pressure 135/68. GENERAL APPEARANCE: The patient is a well-developed, male who appears to be in no acute distress. HEENT: Normocephalic, atraumatic, no facial asymmetry is seen. Neck is supple with no masses felt. CARDIOVASCULAR: Regular rate and rhythm. ABDOMEN: Nontender, nondistended. Extremities showed no edema or clubbing. NEUROLOGICAL EXAM: The patient is alert, aware and oriented x3. Speech and language are normal. Strength is full in all 4 extremities. Sensory exam was normal to light touch in all 4 extremities. No facial asymmetry is seen on cranial nerve testing. No tremors or seizure-like activity is seen. IMPRESSION: 1. Uncontrolled seizures, generalized tonic-clonic type. 2. Subtherapeutic Dilantin level. 3. Tobacco dependence. RECOMMENDATION: The patient did have a breakthrough generalized tonic-clonic seizure. His Dilantin level was found to be subtherapeutic as mentioned above. The patient states that he sometimes has difficulty taking the medication twice daily due to his work schedule. He was advised to always have his Dilantin bottle on him and he was consulted extensively on the importance of medication compliance. I also discussed with him the option of being on a once daily antiepileptic medication. The patient does treat with Dr. Conrad Pruett and he will discuss this further with Dr. Pruett on his next follow-up visit. I will order a repeat Dilantin level in the morning. An EEG will be ordered. Continue neuro checks and seizure precautions. The patient does not drive. He was counseled on tobacco cessation. Continue the rest of your current workup and management. I will continue to follow with you. Further recommendations to follow. Thank you for allowing me to participate in the care of your patient. If you have any questions, please feel free to contact me. MMODL / IJN: [id number] /
[2017-10-15] MEDS ORDERED: PHENYTOIN SODIUM EXTENDED 100 MG CAP PO SCH (09:00)
[2017-10-15 09:19] LABS: ALT 26 U/L (21-72); AST 25 U/L (17-59); Albumin 3.2 g/dL (3.5-5.0); Alkaline Phosphatase 85 U/L (38-126); Anion Gap 9 mmol/L; Blood Urea Nitrogen 8 mg/dL (9-20); Calcium 8.7 mg/dL (8.4-10.2); Carbon Dioxide 26 mmol/L (22-30); Chloride 108 mmol/L (98-107); Glucose 90 mg/dL (74-99); Potassium 3.6 mmol/L (3.5-5.1); Sodium 143 mmol/L (137-145); Total Bilirubin 0.2 mg/dL (0.2-1.3); Total Protein 5.6 g/dL (6.3-8.2)
[2017-10-15] MEDS ORDERED: PHENYTOIN SODIUM INJ 500 MG in SODIUM CHLORIDE 0.9% 100 ML IVPB STA (12:10)
[2017-10-15] MEDS ORDERED: PHENYTOIN SODIUM INJ 1,000 MG in SODIUM CHLORIDE 0.9% 100 ML IVPB STA (12:51)
[2017-10-15] MEDS: SODIUM CHLORIDE 0.9% 1,000 ML IV SCH (13:22)
[2017-10-15] MEDS ORDERED: PHENYTOIN SODIUM INJ 500 MG in SODIUM CHLORIDE 0.9% 100 ML IVPB ONE (13:30)
[2017-10-15 15:58] VITALS: BP 107/74; PULSE 79; TEMP 98.7
--- NOTE | 2017-10-15 16:21 | P.PN ---
Subjective Progress Note Date: 10/15/17 Patient is a pleasant 42-year-old -Citizen Of [place] male who is being followed by the neurology service for seizure. Patient has a long-standing history of seizure disorder and has been on Dilantin 300 mg in the morning and 200 mg at bedtime. Patient had a witnessed tonic clonic seizure in the emergency room. This was followed by postictal confusion and drowsiness. Computed tomography scan of the brain was done which was normal. Patient was admitted for further workup. Patient was loaded with IV Dilantin and had a sudden repeat a level following. Patient was given another loading dose of Dilantin and level is therapeutic at this time. At the time of my evaluation, patient states he is back to baseline and is resting comfortably in bed and appears to be in no acute distress. No further seizures have been reported. Objective - Vital Signs Vital signs: Vital Signs Temp 98.7 F 10/15/17 15:21 Pulse 79 10/15/17 15:21 Resp 16 10/15/17 15:21 BP 107/74 10/15/17 15:21 Pulse Ox 100 10/15/17 15:21 Intake & Output 10/14/17 10/15/17 10/15/17 18:59 06:59 18:59 Intake Total 125 600 Balance 125 600 Weight 72.575 kg 70.5 kg Intake: Oral 125 600 Other: Voiding Method Toilet Toilet # Voids 2 1 2 # Bowel Movements 0 0 - Exam PHYSICAL EXAM: GENERAL APPEARANCE: Patient is a well-developed -Citizen Of [place] male who appears to be in no acute distress. HEENT: Normocephalic, atraumatic, no facial asymmetry is seen. Neck is supple with no masses felt. CARDIOVASCULAR: Regular rate and rhythm. ABDOMEN: Nontender, nondistended. EXTREMITIES: Show no edema or clubbing. NEUROLOGICAL EXAM: Patient is awake, alert, and oriented 3. Speech and language are normal. Strength is full in all 4 extremities. Sensory exam to light touch is normal in all 4 extremities. No facial asymmetry is seen on cranial nerve testing. No tremors or seizure-like activity noted. - Labs CBC & Chem 7: 10/14/17 17:27 10/15/17 08:10 Labs: Abnormal Lab Results - Last 24 Hours (Table) 10/14/17 10/14/17 10/15/17 Range/Units 17:27 22:45 08:10 Hgb 12.8 L (13.0-17.5) gm/dL Hct 38.3 L (39.0-53.0) % Chloride 108 H (98-107) mmol/L BUN 8 L (9-20) mg/dL Total Protein 5.6 L (6.3-8.2) g/dL Albumin 3.2 L (3.5-5.0) g/dL Ur Barbiturates Screen Detected H (NotDetected) Phenytoin ug/mL U Benzodiazepines Scrn Detected H (NotDetected) 10/15/17 Range/Units 15:27 Hgb (13.0-17.5) gm/dL Hct (39.0-53.0) % Chloride (98-107) mmol/L BUN (9-20) mg/dL Total Protein (6.3-8.2) g/dL Albumin (3.5-5.0) g/dL Ur Barbiturates Screen (NotDetected) Phenytoin 21.7 H* ug/mL U Benzodiazepines Scrn (NotDetected) Assessment and Plan Plan: Impression: 1. Uncontrolled seizures, general tonic-clonic type 2. Subtherapeutic Dilantin level 3. Tobacco dependence Recommendations: Patient did have generalized tonic-clonic breakthrough seizure. His Dilantin level was found to be subtherapeutic. Patient was loaded with Dilantin and now has therapeutic level. I had a lengthy discussion with patient regarding once a day dosing of antiepileptic medication. He will discuss this with his neurologist Dr. Pruett. Patient is stable from a neurological standpoint for discharge. He is to continue current home dose of Dilantin. He is to follow-up with Dr. Pruett in a week. Patient does not drive. I will continue to follow with you on an as-needed basis. Feel free to call with any questions or concerns. I performed an examination of the patient and discussed the management with the FARM ASSISTANT. I have reviewed the FARM ASSISTANT notes and agree with the findings and plan of care.
[2017-10-15 16:36] VITALS: RESP 18
--- NOTE | 2017-10-15 18:51 | EEG ---
ELECTROENCEPHALOGRAM REPORT DATE OF SERVICE: 10/15/2017 REASON FOR TESTING: Seizure. DESCRIPTION OF THE PROCEDURE: This EEG was performed using a 21-channel digital electroencephalograph, following international 10-20 system. CURRENT ANTIEPILEPTIC MEDICATIONS: Dilantin. DESCRIPTION OF THE RECORDING: From the beginning of the tracing, and with the patient's eyes closed, the background rhythm was mostly consisting of 9 Hz alpha frequency in the posterior occipital leads. No obvious asymmetry is seen. Frequent muscle and movement artifacts are seen. Photic stimulation was performed with a good driving response seen. No pathological waves were elicited. Hyperventilation was performed with a minimal buildup of amplitude seen. Again, no pathological waves were elicited. The patient remains awake throughout the tracing. No epileptiform discharges were seen. His EKG lead showed a regular rate and rhythm. INTERPRETATION: This awake EEG can be considered within normal limits. There was no asymmetry seen. No epileptiform discharges were noticed. The absence of epileptiform discharges does not rule out the diagnosis of epilepsy; therefore clinical correlation is recommended. MARVIN / JONELN: [id number] /
--- NOTE | 2017-10-16 12:45 | P.DS ---
Providers Date of admission: 10/14/17 12:38 Expected date of discharge: 10/15/17 Attending physician: Vasyl Rhodes Consults: 10/14/17 12:37 Consult Physician Urgent Consulting Provider: Nay Klely Consult Reason/Comments: Seizure, prolonged postictal Do you want consulting provider notified?: Yes Primary care physician: Eduardo Lam [facility] Course: 42-year-old admitted secondary to breakthrough seizures due to subtherapeutic Dilantin levels patient was loaded with Dilantin his a level subtherapeutic now patient is cleared for discharge to follow up with his neurologist as an outpatient no changes are making made in his Dilantin dose. PHYSICAL EXAMINATION: GENERAL: The patient is alert and oriented x3, not in any acute distress. Well developed, well nourished. HEENT: Pupils are round and equally reacting to light. EOMI. No scleral icterus. No conjunctival pallor. Normocephalic, atraumatic. No pharyngeal erythema. No thyromegaly. CARDIOVASCULAR: S1 and S2 present. No murmurs, rubs, or gallops. PULMONARY: Chest is clear to auscultation, no wheezing or crackles. ABDOMEN: Soft, nontender, nondistended, normoactive bowel sounds. No palpable organomegaly. MUSCULOSKELETAL: No joint swelling or deformity. EXTREMITIES: No cyanosis, clubbing, or pedal edema. NEUROLOGICAL: Gross neurological examination did not reveal any focal deficits. SKIN: No rashes. Patient Condition at Discharge: Stable Plan - Discharge Summary Discharge Rx Participant: No New Discharge Prescriptions: Continue Phenytoin Sodium Extended [Dilantin] 300 mg PO DAILY Phenytoin Sodium Extended [Dilantin] 200 mg PO HS Discharge Medication List Phenytoin Sodium Extended [Dilantin] 200 mg PO HS 09/08/17 [History] Phenytoin Sodium Extended [Dilantin] 300 mg PO DAILY 09/08/17 [History] Follow up Appointment(s)/Referral(s): Carole Clark MD [Primary Care Provider] - 10/19/17 3:40 pm (Thursday) Garfield Pruett MD [STAFF PHYSICIAN] - 10/28/17 9:40 am (Thursday, previously scheduled appointment) Discharge/Stand Alone Forms: Work/Release Restrictions Form Discharge Disposition: HOME SELF-CARE
== END 2017-10-15 17:30 | disposition home or self-care (01) ==
LOC: EC 09:50 → 6SEL 12:38
PROVIDERS: ADMIT Hospitalist; ATTEND Hospitalist
DX: G40.409 Other generalized epilepsy and epileptic syndromes, not intractable, without status epilepticus (principal); T42.0X6A Underdosing of hydantoin derivatives, initial encounter; Z91.128 Patient's intentional underdosing of medication regimen for other reason; F32.9 Major depressive disorder, single episode, unspecified; F17.210 Nicotine dependence, cigarettes, uncomplicated; Z79.899 Other long term (current) drug therapy
CPT/HCPCS: 96375 ×3; 96361 ×3; 96376 ×2; 96365 ×2; 99285 ×2; 96366; 36415; 95816; 93005; 80053 ×2; 80185 ×2; 85025; 80306; 83520 ×2; 70450; G0378 ×2; S4990; J2060; J1165 ×2; J2765

== ENCOUNTER 2017-11-04 08:53 | Emergency (ER) | payer BC ==
--- NOTE | 2017-11-04 09:32 | ED ---
Upper Extremity HPI - General Chief Complaint: Extremity Injury, Upper Stated Complaint: Hand/Arm Pain Time Seen by Provider: 11/04/17 09:22 Source: patient, RN notes reviewed Mode of arrival: ambulatory Limitations: no limitations - History of Present Illness Initial Comments: Is a 42-year-old male presents emergency Department chief complaint of right hand pain and swelling. Patient states has been present for last couple weeks. Patient states it started after receiving IV. Patient was seen in the ER so that he has superficial Phlebitis. He's been taking ibuprofen, warm compresses no improvement. He states it pain is slightly rating into his arm. Complains of Paresthesias. Patient Denies Weakness. Patient Denies Any New Injury No Fever No Chills. Denies Any Warmth There. - Related Data Home Medications Medication Instructions Recorded Confirmed Phenytoin Sodium Extended 200 mg PO HS 09/08/17 11/04/17 [Dilantin] Phenytoin Sodium Extended 300 mg PO QAM 09/08/17 11/04/17 [Dilantin] Previous Rx's Medication Instructions Recorded Ibuprofen [Motrin] 600 mg PO Q8HR PRN #30 tab 11/04/17 Allergies Allergy/AdvReac Type Severity Reaction Status Date / Time No Known Allergies Allergy Verified 11/04/17 09:37 Review of Systems ROS Statement: Those systems with pertinent positive or pertinent negative responses have been documented in the HPI. ROS Other: All systems not noted in ROS Statement are negative. Past Medical History Past Medical History: Seizure Disorder Additional Past Medical History / Comment(s): Last seizure 10/14/17, History of Any Multi-Drug Resistant Organisms: None Reported Past Surgical History: Orthopedic Surgery Additional Past Surgical History / Comment(s): R arm/R hand surgery d/t injuries. Past Anesthesia/Blood Transfusion Reactions: No Reported Reaction Additional Past Anesthesia/Blood Transfusion Reaction / Comment(s): Pt received blood in past without reaction. Past Psychological History: Anxiety, Depression Smoking Status: Current every day smoker Past Alcohol Use History: None Reported Past Drug Use History: None Reported - Past Family History Mother Family Medical History: No Reported History Additional Family Medical History / Comment(s): Mother is healthy. Father History Unknown: Yes Family Medical History: No Reported History Additional Family Medical History / Comment(s): Father is healthy General Exam Limitations: no limitations General appearance: alert, in no apparent distress Respiratory exam: Present: normal lung sounds bilaterally. Absent: respiratory distress, wheezes, rales, rhonchi, stridor Cardiovascular Exam: Present: regular rate, normal rhythm, normal heart sounds. Absent: systolic murmur, diastolic murmur, rubs, gallop, clicks Extremities exam: Present: other (Right hand swelling noted on the dorsal aspect. Patient has mild tenderness pain with Phalen's test. Patient has equal paper supervisor strength 5/5 neurovascular intact) Neurological exam: Present: reflexes normal. Absent: motor sensory deficit Skin exam: Present: warm, dry, intact, normal color. Absent: rash Course Vital Signs 11/04/17 08:54 Temperature 98.5 F Pulse Rate 74 Respiratory 18 Rate Blood Pressure 117/76 O2 Sat by Pulse 100 Oximetry Medical Decision Making - Medical Decision Making 42-year-old male presents from for right hand swelling. Patient is concerned has a has not improved with the last couple weeks. Patient had an ultrasound in the emergency Department shows superficial phlebitis and he's been told the past. Patient continued on anti-inflammatories warm compresses. Patient follow -up with orthopedics for his carpal tunnel. Return parameters discussed. Disposition Clinical Impression: Superficial thrombophlebitis, Carpal tunnel syndrome Disposition: HOME SELF-CARE Condition: Stable Instructions: Superficial Thrombophlebitis (ED) Additional Instructions: Please return to the Emergency Department if symptoms worsen or any other concerns. Prescriptions: Ibuprofen [Motrin] 600 mg PO Q8HR PRN #30 tab PRN Reason: Pain Is patient prescribed a controlled substance at d/c from ED?: No Referrals: Carole Clark MD [Primary Care Provider] - 1-2 days Akira Walker MD [STAFF PHYSICIAN] - 1-2 days Time of Disposition: 11:19
--- NOTE | 2017-11-04 10:13 | XR ---
EXAMINATION TYPE: XR hand complete RT DATE OF EXAM: 11/04/2017 COMPARISON: NONE HISTORY: Pain TECHNIQUE: Three views are submitted. FINDINGS: The osseous structures are intact. The joint spaces are preserved and there is no acute fracture or dislocation. IMPRESSION: 1. No definite acute fracture or dislocation if symptoms persist, follow-up study in 7 to 10 days wo uld be suggested
--- NOTE | 2017-11-04 11:06 | US ---
EXAMINATION TYPE: US venous doppler duplex UE RT DATE OF EXAM: 11/04/2017 COMPARISON: NONE CLINICAL HISTORY: 42-year-old male Pain, swelling. Patient had an IV in his right hand about 2 weeks ago, pain and swelling since. SIDE PERFORMED: Right Technique: Grayscale, color doppler, spectral doppler imaging performed of the deep veins of the upp er extremities. FINDINGS: Right Arm: There is normal flow, compressibility and vascular waveforms of the internal jugular vein, axillary, brachial, paired ulnar/radial veins, as well as the superficial cephalic and basilic veins. Negative for DVT. Positive for superficial thrombosis at the area of the patient's recent IV site on the top of his amato d IMPRESSION: Exam positive for superficial thrombosis at the patient's recent IV site along the dorsum of the hand . No evidence for right upper extremity DVT.
[2017-11-04 11:40] VITALS: BP 111/65; PULSE 66; RESP 16; TEMP 98
== END 2017-11-04 11:40 | disposition home or self-care (01) ==
LOC: EC 08:53
DX: I80.8 Phlebitis and thrombophlebitis of other sites (principal); G56.01 Carpal tunnel syndrome, right upper limb; F17.200 Nicotine dependence, unspecified, uncomplicated; G40.909 Epilepsy, unspecified, not intractable, without status epilepticus; Z79.1 Long term (current) use of non-steroidal anti-inflammatories (NSAID); Z79.899 Other long term (current) drug therapy; Z98.890 Other specified postprocedural states
CPT/HCPCS: 99284

== ENCOUNTER → 2017-12-07 | Outpatient (CLI) | payer BC | END | disposition home or self-care (01) | LOC: LABWHC1 09:31 | PROVIDERS: ATTEND Psychiatry & Neurology Neurology | DX: G40.209 Localization-related (focal) (partial) symptomatic epilepsy and epileptic syndromes with complex partial seizures, not intractable, without status epilepticus (principal) | CPT/HCPCS: 36415; 80177 ==

== ENCOUNTER 2018-04-16 08:35 | Emergency (ER) | payer BC ==
[2018-04-16 08:57] VITALS: RESP 18
[2018-04-16] MEDS ORDERED: SODIUM CHLORIDE 0.9% 1,000 ML IV STA (09:05)
[2018-04-16] MEDS ORDERED: ONDANSETRON 4 MG/2 ML VIAL IVP STA (09:05)
[2018-04-16] MEDS ORDERED: LORazepam 2 MG/ML INJ IV STA (09:06)
--- NOTE | 2018-04-16 09:09 | ED ---
General Adult HPI - General Chief complaint: Seizure Stated complaint: seizure Time Seen by Provider: 04/16/18 08:35 Source: patient, RN notes reviewed Mode of arrival: wheelchair Limitations: no limitations - History of Present Illness Initial comments: This is a 43-year-old male who presents emergency department with past medical history significant for seizures. Patient states he takes Keppra daily and has not missed any doses. Patient states that he got to work he started vomiting and shortly thereafter he started feeling like he might have a seizure. Patient states she's been having seizures for 20 years and he knows when the seizures come on. Patient states he has yet to have a seizure but he still feels as though he might. Patient states he felt a little dizzy and continued to be nauseous. Patient states he had no abdominal pain. Patient had no diarrhea. Patient denies any chest pain difficulty breathing shortest breath. Patient denies any recent fever chills or cough. Patient states she has a mild headache at this time. Patient denies any visual disturbance or any speech disturbance. Patient denies any numbness or weakness. - Related Data Home Medications Medication Instructions Recorded Confirmed levETIRAcetam [Keppra] 750 mg PO BID 04/16/18 04/16/18 Allergies Allergy/AdvReac Type Severity Reaction Status Date / Time No Known Allergies Allergy Verified 04/16/18 09:38 Review of Systems ROS Statement: Those systems with pertinent positive or pertinent negative responses have been documented in the HPI. ROS Other: All systems not noted in ROS Statement are negative. Past Medical History Past Medical History: Seizure Disorder Additional Past Medical History / Comment(s): Last seizure 10/14/17, History of Any Multi-Drug Resistant Organisms: None Reported Past Surgical History: Orthopedic Surgery Additional Past Surgical History / Comment(s): R arm/R hand surgery d/t injuries. Past Anesthesia/Blood Transfusion Reactions: No Reported Reaction Additional Past Anesthesia/Blood Transfusion Reaction / Comment(s): Pt received blood in past without reaction. Past Psychological History: Anxiety, Depression Smoking Status: Current every day smoker Past Alcohol Use History: None Reported Past Drug Use History: None Reported - Past Family History Mother Family Medical History: No Reported History Additional Family Medical History / Comment(s): Mother is healthy. Father History Unknown: Yes Family Medical History: No Reported History Additional Family Medical History / Comment(s): Father is healthy General Exam - General Exam Comments Initial Comments: GENERAL: Patient is well-developed and well-nourished. Patient is nontoxic and well- hydrated and is in mild distress. ENT: Neck is soft and supple. No significant lymphadenopathy is noted. Oropharynx is clear. Moist mucous membranes. Neck has full range of motion without eliciting any pain. EYES: The sclera were anicteric and conjunctiva were pink and moist. Extraocular movements were intact and pupils were equal round and reactive to light. Eyelids were unremarkable. PULMONARY: Unlabored respirations. Good breath sounds bilaterally. No audible rales rhonchi or wheezing was noted. CARDIOVASCULAR: There is a regular rate and rhythm without any murmurs gallops or rubs. ABDOMEN: Soft and nontender with normal bowel sounds. No palpable organomegaly was noted. There is no palpable pulsatile mass. SKIN: Skin is clear with no lesions or rashes and otherwise unremarkable. NEUROLOGIC: Patient is alert and oriented x3. Cranial nerves II through XII are grossly intact. Motor and sensory are also intact. Normal speech, volume and content. Symmetrical smile. MUSCULOSKELETAL: Normal extremities with adequate strength and full range of motion. LYMPHATICS: No significant lymphadenopathy is noted PSYCHIATRIC: Normal psychiatric evaluation. Normal interpersonal interactions appears functionally intact in deals appropriately with others. No signs of depression. No signs of anxiety. Limitations: no limitations Course Vital Signs 04/16/18 08:53 Temperature 98.5 F Pulse Rate 63 Respiratory 18 Rate Blood Pressure 116/59 O2 Sat by Pulse 100 Oximetry Medical Decision Making - Medical Decision Making EKG shows normal sinus rhythm at 61 bpm [place] interval is on a 52 QRS is 98 QT interval 390 QTC is 392. Patient's EKG shows no ST segment elevation or depression or T wave abnormalities are noted. - Lab Data Result diagrams: 04/16/18 09:22 04/16/18 09:22 Lab Results 04/16/18 04/16/18 04/16/18 Range/Units 09:22 09:22 09:22 WBC 3.5 L (3.8-10.6) k/uL RBC 5.30 (4.30-5.90) m/uL Hgb 14.2 (13.0-17.5) gm/dL Hct 43.9 (39.0-53.0) % MCV 82.9 (80.0-100.0) fL MCH 26.7 (25.0-35.0) pg MCHC 32.3 (31.0-37.0) g/dL RDW 13.8 (11.5-15.5) % Plt Count 263 (150-450) k/uL Neutrophils % 54 % Lymphocytes % 37 % Monocytes % 6 % Eosinophils % 2 % Basophils % 0 % Neutrophils # 1.9 (1.3-7.7) k/uL Lymphocytes # 1.3 (1.0-4.8) k/uL Monocytes # 0.2 (0-1.0) k/uL Eosinophils # 0.1 (0-0.7) k/uL Basophils # 0.0 (0-0.2) k/uL Sodium 142 (137-145) mmol/L Potassium 4.6 (3.5-5.1) mmol/L Chloride 110 H (98-107) mmol/L Carbon Dioxide 25 (22-30) mmol/L Anion Gap 7 mmol/L BUN 12 (9-20) mg/dL Creatinine 0.86 (0.66-1.25) mg/dL Est GFR (CKD-EPI)AfAm >90 (>60 ml/min/1.73 sqM) Est GFR (CKD-EPI)NonAf >90 (>60 ml/min/1.73 sqM) Glucose 93 (74-99) mg/dL Calcium 9.1 (8.4-10.2) mg/dL Total Bilirubin 0.4 (0.2-1.3) mg/dL AST 29 (17-59) U/L ALT 28 (21-72) U/L Alkaline Phosphatase 61 (38-126) U/L Total Protein 7.6 (6.3-8.2) g/dL Albumin 4.4 (3.5-5.0) g/dL Amylase 82 (30-110) U/L Lipase 28 (23-300) U/L Urine Opiates Screen Not Detected (NotDetected) Ur Oxycodone Screen Not Detected (NotDetected) Urine Methadone Screen Not Detected (NotDetected) Ur Propoxyphene Screen Not Detected (NotDetected) Ur Barbiturates Screen Not Detected (NotDetected) U Tricyclic Antidepress Not Detected (NotDetected) Ur Phencyclidine Scrn Not Detected (NotDetected) Ur Amphetamines Screen Not Detected (NotDetected) U Methamphetamines Scrn Not Detected (NotDetected) U Benzodiazepines Scrn Not Detected (NotDetected) Urine Cocaine Screen Not Detected (NotDetected) U Marijuana (THC) Screen Not Detected (NotDetected) Disposition Clinical Impression: Acute vomiting, History of seizures Disposition: HOME SELF-CARE Condition: Good Instructions: Acute Nausea and Vomiting (ED) Is patient prescribed a controlled substance at d/c from ED?: No Referrals: Carole Clark MD [Primary Care Provider] - 1-2 days Time of Disposition: 10:35
[2018-04-16 09:35] LABS: Basophils % (A) 0 %; Eosinophils # (A) 0.1 k/uL (0-0.7); Eosinophils % (A) 2 %; HCT 43.9 % (39.0-53.0); HGB 14.2 gm/dL (13.0-17.5); Lymphocytes # (A) 1.3 k/uL (1.0-4.8); Lymphocytes % (A) 37 %; MCH 26.7 pg (25.0-35.0); MCHC 32.3 g/dL (31.0-37.0); MCV 82.9 fL (80.0-100.0); Mean Platelet Volume 6.7; Monocytes # (A) 0.2 k/uL (0-1.0); Monocytes % (A) 6 %; Neutrophils # (A) 1.9 k/uL (1.3-7.7); Neutrophils % (A) 54 %; Platelet Count 263 k/uL (150-450); RDW 13.8 % (11.5-15.5); WBC 3.5 k/uL (3.8-10.6)
[2018-04-16 09:55] LABS: Albumin 4.4 g/dL (3.5-5.0); Amylase 82 U/L (30-110); Anion Gap 7 mmol/L; Blood Urea Nitrogen 12 mg/dL (9-20); Calcium 9.1 mg/dL (8.4-10.2); Carbon Dioxide 25 mmol/L (22-30); Chloride 110 mmol/L (98-107); Glucose 93 mg/dL (74-99); Lipase 28 U/L (23-300); Sodium 142 mmol/L (137-145); Total Bilirubin 0.4 mg/dL (0.2-1.3); Total Protein 7.6 g/dL (6.3-8.2)
[2018-04-16 10:05] LABS: ALT 28 U/L (21-72); AST 29 U/L (17-59); Alkaline Phosphatase 61 U/L (38-126); Potassium 4.6 mmol/L (3.5-5.1)
[2018-04-16 10:14] LABS: Amphetamine Screen,Urine Not Detected (NotDetected); Barbiturate Screen,Urine Not Detected (NotDetected); Benzodiazepines Screen,Urine Not Detected (NotDetected); Cocaine Screen,Urine Not Detected (NotDetected); Methadone Screen, Urine Not Detected (NotDetected); Opiate Screen,Urine Not Detected (NotDetected); Oxycodone Screen, Urine Not Detected (NotDetected); Phencyclidine Screen,Urine Not Detected (NotDetected); Tricyclic Antidepressant,Urine Not Detected (NotDetected); Urn Cannabinoid Scrn Not Detected (NotDetected)
[2018-04-16] MEDS ORDERED: ONDANSETRON 4 MG ODT STARTER PACK 2 TAB BTL PO STA (10:35)
[2018-04-16 11:17] VITALS: BP 115/67; PULSE 69; TEMP 97.9
== END 2018-04-16 11:23 | disposition home or self-care (01) ==
LOC: EC 08:35
DX: G40.909 Epilepsy, unspecified, not intractable, without status epilepticus (principal); R11.2 Nausea with vomiting, unspecified; R51 Headache; R42 Dizziness and giddiness; F17.200 Nicotine dependence, unspecified, uncomplicated; Z79.899 Other long term (current) drug therapy
CPT/HCPCS: 36415; 80053; 80177; 82150; 83690; 85025; 80306; 99284; 96374; 96375; 96361 ×2; J2060; J2405; S0119

== ENCOUNTER 2018-05-07 17:25 | Emergency (ER) | payer BC ==
--- NOTE | 2018-05-07 17:45 | ED ---
General Adult HPI - General Chief complaint: Urogenital Stated complaint: Blood in urine Time Seen by Provider: 05/07/18 17:34 Source: patient Mode of arrival: ambulatory Limitations: no limitations - History of Present Illness Initial comments: 43-year-old male patient presents to the emergency department today for evaluation of hematuria and pain to his bilateral groin and anterior thighs. Patient states that for the last 2 weeks he has increased his physical activity and has been working with a personal care worker. Patient states that couple of days ago he was doing butterfly weights with his legs. Patient states when he woke today he was having significant pain to his groin bilaterally, medial thighs, and anterior thighs. Patient states it hurts to walk. Patient states that today he noticed that his urine was dark brown in color. Denies any dysuria but states he is having frequency of urination. States he is having some mild low back pain with this. He denies any fever or chills. Denies any numbness or tingling to his extremities. Denies any loss of bowel or bladder control or saddle anesthesia. Patient is treated for seizures with Keppra but denies any other medical problems. Patient denies any recent rash, shortness breath, chest pain, abdominal pain, nausea, vomiting, diarrhea, constipation, back pain, numbness, tingling, dizziness, weakness, headache, visual changes, or any other complaints. He denies any drug or alcohol use. States he has been drinking protein drinks, but denies any other workout supplements or OTC vitamins. - Related Data Home Medications Medication Instructions Recorded Confirmed levETIRAcetam [Keppra] 750 mg PO BID 04/16/18 05/07/18 Allergies Allergy/AdvReac Type Severity Reaction Status Date / Time No Known Allergies Allergy Verified 05/07/18 18:28 Review of Systems ROS Statement: Those systems with pertinent positive or pertinent negative responses have been documented in the HPI. ROS Other: All systems not noted in ROS Statement are negative. Past Medical History Past Medical History: Seizure Disorder Additional Past Medical History / Comment(s): Last seizure 10/14/17, History of Any Multi-Drug Resistant Organisms: None Reported Past Surgical History: Orthopedic Surgery Additional Past Surgical History / Comment(s): R arm/R hand surgery d/t injuries. Past Anesthesia/Blood Transfusion Reactions: No Reported Reaction Additional Past Anesthesia/Blood Transfusion Reaction / Comment(s): Pt received blood in past without reaction. Past Psychological History: Anxiety, Depression Smoking Status: Current every day smoker Past Alcohol Use History: None Reported Past Drug Use History: None Reported - Past Family History Mother Family Medical History: No Reported History Additional Family Medical History / Comment(s): Mother is healthy. Father History Unknown: Yes Family Medical History: No Reported History Additional Family Medical History / Comment(s): Father is healthy General Exam Limitations: no limitations General appearance: alert, in no apparent distress, other (This is a well- developed, well-nourished adult male patient in no acute distress. Vital signs upon presentation are temperature 99.2F, pulse 88, respirations 18, blood pressure 125/80, pulse ox 100% on room air.) Eye exam: Present: normal appearance, PERRL, EOMI. Absent: scleral icterus, conjunctival injection, periorbital swelling ENT exam: Present: normal exam, normal oropharynx, mucous membranes moist Respiratory exam: Present: normal lung sounds bilaterally. Absent: respiratory distress, wheezes, rales, rhonchi, stridor Cardiovascular Exam: Present: regular rate, normal rhythm, normal heart sounds. Absent: systolic murmur, diastolic murmur, rubs, gallop, clicks GI/Abdominal exam: Present: soft, tenderness (Mild suprapubic and mild midepigastric tenderness), normal bowel sounds. Absent: distended, guarding, rebound, rigid Extremities exam: Present: normal inspection, full ROM, tenderness (Over the anterior thighs and bilateral brain), normal capillary refill, other (Skin is warm and dry. Cap refills less than 3 seconds. Pedal and posttibial pulses 2+ and equal bilaterally.). Absent: pedal edema, joint swelling, calf tenderness Neurological exam: Present: alert, oriented X3, CN II-XII intact Psychiatric exam: Present: normal affect, normal mood Skin exam: Present: warm, dry, intact, normal color. Absent: rash Course Vital Signs 05/07/18 05/07/18 17:27 20:52 Temperature 99.2 F 98.1 F Pulse Rate 88 65 Respiratory 18 17 Rate Blood Pressure 125/80 126/93 O2 Sat by Pulse 100 100 Oximetry Medical Decision Making - Medical Decision Making 43-year-old male patient presents the emergency department today for evaluation of bilateral groin and leg pain for the last couple of days. Patient states that he did start a new workout regimen and has been working with a personal care worker. Physical examination is relatively unremarkable, there is some tenderness to the anterior thighs but skin is warm and dry with good neurovascular status. Labs reviewed and did reveal an elevated AST at 1757, ALT at 389, creatine kinase is greater than 3200. Patient denies any drug or alcohol use. Urinalysis showed 2+ protein, large amount of blood, moderate leukocyte esterase, 68 white blood cells, rare urine mucus. Coag studies and kidney function are within normal range. I did discuss findings and results with the patient, his symptoms are consistent with exertional rhabdomyolysis. I did offer to admit patient for IV fluids and pain management however he declined stating that he needs to go to work. I did instruct him to increase fluids. He is instructed to follow-up with his primary care physician for recheck on Thursday for recheck and to have repeat labs drawn. Return parameters were discussed in detail. He verbalizes understanding and agrees with this plan - Lab Data Result diagrams: 05/07/18 17:47 05/07/18 17:47 Lab Results 05/07/18 05/07/18 05/07/18 Range/Units 17:47 17:47 17:47 WBC 7.6 (3.8-10.6) k/uL RBC 5.14 (4.30-5.90) m/uL Hgb 13.6 (13.0-17.5) gm/dL Hct 43.5 (39.0-53.0) % MCV 84.6 (80.0-100.0) fL MCH 26.4 (25.0-35.0) pg MCHC 31.2 (31.0-37.0) g/dL RDW 13.7 (11.5-15.5) % Plt Count 258 (150-450) k/uL Neutrophils % 61 % Lymphocytes % 31 % Monocytes % 4 % Eosinophils % 3 % Basophils % 0 % Neutrophils # 4.6 (1.3-7.7) k/uL Lymphocytes # 2.3 (1.0-4.8) k/uL Monocytes # 0.3 (0-1.0) k/uL Eosinophils # 0.2 (0-0.7) k/uL Basophils # 0.0 (0-0.2) k/uL PT (9.0-12.0) sec INR (<1.2) APTT (22.0-30.0) sec Sodium 142 (137-145) mmol/L Potassium 3.9 (3.5-5.1) mmol/L Chloride 106 (98-107) mmol/L Carbon Dioxide 28 (22-30) mmol/L Anion Gap 8 mmol/L BUN 11 (9-20) mg/dL Creatinine 0.90 (0.66-1.25) mg/dL Est GFR (CKD-EPI)AfAm >90 (>60 ml/min/1.73 sqM) Est GFR (CKD-EPI)NonAf >90 (>60 ml/min/1.73 sqM) Glucose 112 H (74-99) mg/dL Calcium 9.3 (8.4-10.2) mg/dL Total Bilirubin 0.4 (0.2-1.3) mg/dL AST 1757 H (17-59) U/L ALT 389 H (21-72) U/L Alkaline Phosphatase 57 (38-126) U/L Creatine Kinase >3200 H* (55-170) U/L Total Protein 6.7 (6.3-8.2) g/dL Albumin 4.0 (3.5-5.0) g/dL Amylase 72 (30-110) U/L Lipase 64 (23-300) U/L Urine Color Red Urine Appearance Cloudy (Clear) Urine pH 6.0 (5.0-8.0) Ur Specific [place] 1.019 (1.001-1.035) Urine Protein 2+ H (Negative) Urine Glucose (UA) Negative (Negative) Urine Ketones Negative (Negative) Urine Blood Large H (Negative) Urine Nitrite Negative (Negative) Urine Bilirubin Negative (Negative) Urine Urobilinogen <2.0 (<2.0) mg/dL Ur Leukocyte Esterase Moderate H (Negative) Urine RBC 4 (0-5) /hpf Urine WBC 68 H (0-5) /hpf Ur Squamous Epith Cells 1 (0-4) /hpf Urine Mucus Rare H (None) /hpf 05/07/18 Range/Units 19:18 WBC (3.8-10.6) k/uL RBC (4.30-5.90) m/uL Hgb (13.0-17.5) gm/dL Hct (39.0-53.0) % MCV (80.0-100.0) fL MCH (25.0-35.0) pg MCHC (31.0-37.0) g/dL RDW (11.5-15.5) % Plt Count (150-450) k/uL Neutrophils % % Lymphocytes % % Monocytes % % Eosinophils % % Basophils % % Neutrophils # (1.3-7.7) k/uL Lymphocytes # (1.0-4.8) k/uL Monocytes # (0-1.0) k/uL Eosinophils # (0-0.7) k/uL Basophils # (0-0.2) k/uL PT 9.8 (9.0-12.0) sec INR 1.0 (<1.2) APTT 23.4 (22.0-30.0) sec Sodium (137-145) mmol/L Potassium (3.5-5.1) mmol/L Chloride (98-107) mmol/L Carbon Dioxide (22-30) mmol/L Anion Gap mmol/L BUN (9-20) mg/dL Creatinine (0.66-1.25) mg/dL Est GFR (CKD-EPI)AfAm (>60 ml/min/1.73 sqM) Est GFR (CKD-EPI)NonAf (>60 ml/min/1.73 sqM) Glucose (74-99) mg/dL Calcium (8.4-10.2) mg/dL Total Bilirubin (0.2-1.3) mg/dL AST (17-59) U/L ALT (21-72) U/L Alkaline Phosphatase (38-126) U/L Creatine Kinase (55-170) U/L Total Protein (6.3-8.2) g/dL Albumin (3.5-5.0) g/dL Amylase (30-110) U/L Lipase (23-300) U/L Urine Color Urine Appearance (Clear) Urine pH (5.0-8.0) Ur Specific [place] (1.001-1.035) Urine Protein (Negative) Urine Glucose (UA) (Negative) Urine Ketones (Negative) Urine Blood (Negative) Urine Nitrite (Negative) Urine Bilirubin (Negative) Urine Urobilinogen (<2.0) mg/dL Ur Leukocyte Esterase (Negative) Urine RBC (0-5) /hpf Urine WBC (0-5) /hpf Ur Squamous Epith Cells (0-4) /hpf Urine Mucus (None) /hpf Disposition Clinical Impression: Exertional rhabdomyolysis, Elevated liver function tests Disposition: HOME SELF-CARE Condition: Good Instructions: Rhabdomyolysis (ED) Additional Instructions: Increase fluids. Follow up with your primary care physician as soon as possible for repeat Creatine Kinase and Liver function tests. Return immediately for any new, worsening, or concerning symptoms. Is patient prescribed a controlled substance at d/c from ED?: No Referrals: Carole Clark MD [Primary Care Provider] - 1-2 days Time of Disposition: 20:12
[2018-05-07] MEDS: KETOROLAC 30 MG/ML 1 ML VIAL IVP STA (17:56)
[2018-05-07] MEDS: SODIUM CHLORIDE 0.9% 1,000 ML IV ONE (17:58)
[2018-05-07 18:11] LABS: Basophils % (A) 0 %; Eosinophils # (A) 0.2 k/uL (0-0.7); Eosinophils % (A) 3 %; HCT 43.5 % (39.0-53.0); HGB 13.6 gm/dL (13.0-17.5); Lymphocytes # (A) 2.3 k/uL (1.0-4.8); Lymphocytes % (A) 31 %; MCH 26.4 pg (25.0-35.0); MCHC 31.2 g/dL (31.0-37.0); MCV 84.6 fL (80.0-100.0); Mean Platelet Volume 6.8; Monocytes # (A) 0.3 k/uL (0-1.0); Monocytes % (A) 4 %; Neutrophils # (A) 4.6 k/uL (1.3-7.7); Neutrophils % (A) 61 %; Platelet Count 258 k/uL (150-450); RBC 5.14 m/uL (4.30-5.90); RDW 13.7 % (11.5-15.5); WBC 7.6 k/uL (3.8-10.6)
[2018-05-07 18:15] LABS: Appearance,Urine Cloudy (Clear); Bilirubin,Urine Negative (Negative); Blood,Urine Large (Negative); Color,Urine Red; Glucose,Urine (UA) Negative (Negative); Ketones,Urine Negative (Negative); Leukocyte Esterase,Urine Moderate (Negative); Mucus,Urine Rare /hpf; Nitrite,Urine Negative (Negative); Protein,Urine 2+ (Negative); RBC,Urine 4 /hpf (0-5); Specific Gravity,Urine 1.019 (1.001-1.035); Squamous Epithelial Cell,Urine 1 /hpf (0-4); Urobilinogen,Urine <2.0 mg/dL (<2.0); WBC,Urine 68 /hpf (0-5)
[2018-05-07 18:21] LABS: ALT 389 U/L (21-72); Alkaline Phosphatase 57 U/L (38-126); Amylase 72 U/L (30-110); Anion Gap 8 mmol/L; Blood Urea Nitrogen 11 mg/dL (9-20); Calcium 9.3 mg/dL (8.4-10.2); Carbon Dioxide 28 mmol/L (22-30); Chloride 106 mmol/L (98-107); Glucose 112 mg/dL (74-99); Lipase 64 U/L (23-300); Potassium 3.9 mmol/L (3.5-5.1); Sodium 142 mmol/L (137-145); Total Bilirubin 0.4 mg/dL (0.2-1.3); Total Protein 6.7 g/dL (6.3-8.2)
[2018-05-07 18:41] LABS: AST 1757 U/L (17-59)
[2018-05-07 19:42] LABS: Partial Thromboplastin Time 23.4 sec (22.0-30.0); Prothrombin Time 9.8 sec (9.0-12.0)
[2018-05-07] MEDS: SODIUM CHLORIDE 0.9% 500 ML 500 ML IV ONE (20:13)
[2018-05-07] MEDS: MORPHINE SULFATE 4 MG/ML SYRINGE IVP STA (20:14)
[2018-05-07 20:53] VITALS: BP 126/93; PULSE 65; RESP 17; TEMP 98.1
[2018-05-08 15:55] LABS: Creatine Kinase >32000 U/L (55-170)
== END 2018-05-07 21:05 | disposition home or self-care (01) ==
LOC: EC 17:25
DX: M62.82 Rhabdomyolysis (principal); R94.5 Abnormal results of liver function studies; R10.32 Left lower quadrant pain; R10.31 Right lower quadrant pain; R10.13 Epigastric pain; M79.609 Pain in unspecified limb; R31.9 Hematuria, unspecified; R35.0 Frequency of micturition; M54.5 Low back pain; G40.909 Epilepsy, unspecified, not intractable, without status epilepticus; F17.200 Nicotine dependence, unspecified, uncomplicated; Z79.899 Other long term (current) drug therapy; Z53.29 Procedure and treatment not carried out because of patient's decision for other reasons
CPT/HCPCS: 36415; 80053; 81001; 82150; 82550; 83690; 85025; 85610; 85730; 87086; 96361; 96374; 96375; 99283

== ENCOUNTER 2018-05-08 18:07 | Inpatient (IN) | payer BC ==
[2018-05-08] MEDS ORDERED: SODIUM CHLORIDE 0.9% 1,000 ML IV ONE (18:30)
[2018-05-08] MEDS ORDERED: MORPHINE SULFATE 4 MG/ML SYRINGE IVP STA (18:30)
--- NOTE | 2018-05-08 18:35 | ED ---
Recheck HPI - General Chief Complaint: Recheck/Abnormal Lab/Rx Stated Complaint: high liver enzymes Time Seen by Provider: 05/08/18 18:14 Source: patient Mode of arrival: ambulatory Limitations: no limitations - History of Present Illness Initial Comments: 43-year-old male patient presents to the emergency department today for review of abnormal labs. 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 Yesterday labs are found to have a CK greater than 3500, elevated AST, and ALT. Admission was recommended however patient requested discharge as he had work resonsibilities. He was discharged home with a diagnosis of exertional rhabdomyolysis and instructed to increase fluids and to follow-up with his primary care physician to have repeat labs drawn on Thursday. Patient reports today his symptoms are unchanged. He states that the pain in his legs has been quite severe. States he is unable to work a half day. Patient states he is having some pain to the midepigastric and right upper quadrant abdomen. He denies any nausea or vomiting. Denies any constipation or diarrhea. He is reporting dark urine. He denies fevers or chills. Patient denies any recent rash, shortness breath, chest pain, back pain , numbness, tingling, dizziness, weakness, headache, visual changes, or any other complaints. - Related Data Home Medications Medication Instructions Recorded Confirmed levETIRAcetam [Keppra] 750 mg PO BID 04/16/18 05/08/18 Allergies Allergy/AdvReac Type Severity Reaction Status Date / Time No Known Allergies Allergy Verified 05/08/18 18:13 Review of Systems ROS Statement: Those systems with pertinent positive or pertinent negative responses have been documented in the HPI. ROS Other: All systems not noted in ROS Statement are negative. Past Medical History Past Medical History: Seizure Disorder Additional Past Medical History / Comment(s): Last seizure 10/14/17, History of Any Multi-Drug Resistant Organisms: None Reported Past Surgical History: Orthopedic Surgery Additional Past Surgical History / Comment(s): R arm/R hand surgery d/t injuries. Past Anesthesia/Blood Transfusion Reactions: No Reported Reaction Additional Past Anesthesia/Blood Transfusion Reaction / Comment(s): Pt received blood in past without reaction. Past Psychological History: Anxiety, Depression Smoking Status: Current every day smoker Past Alcohol Use History: None Reported Past Drug Use History: None Reported - Past Family History Mother Family Medical History: No Reported History Additional Family Medical History / Comment(s): Mother is healthy. Father History Unknown: Yes Family Medical History: No Reported History Additional Family Medical History / Comment(s): Father is healthy General Exam Limitations: no limitations General appearance: alert, in no apparent distress, other (This is a well- developed, well-nourished adult male patient in no acute distress. Vital signs upon presentation are temperature 98.8F, pulse 76, respirations 18, blood pressure 135/88, pulse ox 100% on room air.) Eye exam: Present: normal appearance, PERRL, EOMI. Absent: scleral icterus, conjunctival injection, periorbital swelling ENT exam: Present: normal exam, normal oropharynx, mucous membranes moist Respiratory exam: Present: normal lung sounds bilaterally. Absent: respiratory distress, wheezes, rales, rhonchi, stridor Cardiovascular Exam: Present: regular rate, normal rhythm, normal heart sounds. Absent: systolic murmur, diastolic murmur, rubs, gallop, clicks GI/Abdominal exam: Present: soft, tenderness (Midepigastric and right upper quadrant tenderness), normal bowel sounds. Absent: distended, guarding, rebound , rigid Extremities exam: Present: normal inspection, full ROM, tenderness (Anterior thigh), normal capillary refill, other (Skin to the lower extremities is pink, warm, and dry. Cap refills less than 3 seconds. Pedal posttibial pulses are 2 + and equal bilaterally.). Absent: pedal edema, joint swelling, calf tenderness Neurological exam: Present: alert, oriented X3, CN II-XII intact Psychiatric exam: Present: normal affect, normal mood Skin exam: Present: warm, dry, intact, normal color. 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 Patient also takes Keppra which does list rhabdo as a rare side effect , which will also be considered as a cause. Labs reviewed today did reveal elevated AST at 1866, ALT of 470, creatinine kinase at greater than 32,000. Given patient's worsening liver function we will admit to hospital for IV fluid resuscitation. We will consult nephrology for further recommendations. Patient admitted to Dr. Rhodes. - Lab Data Result diagrams: 05/08/18 18:46 05/08/18 18:46 Lab Results 05/08/18 05/08/18 05/08/18 Range/Units 18:46 18:46 19:53 WBC 5.5 (3.8-10.6) k/uL RBC 5.02 (4.30-5.90) m/uL Hgb 13.5 (13.0-17.5) gm/dL Hct 42.6 (39.0-53.0) % MCV 84.8 (80.0-100.0) fL MCH 26.8 (25.0-35.0) pg MCHC 31.7 (31.0-37.0) g/dL RDW 13.6 (11.5-15.5) % Plt Count 243 (150-450) k/uL Neutrophils % 50 % Lymphocytes % 38 % Monocytes % 6 % Eosinophils % 4 % Basophils % 0 % Neutrophils # 2.7 (1.3-7.7) k/uL Lymphocytes # 2.1 (1.0-4.8) k/uL Monocytes # 0.3 (0-1.0) k/uL Eosinophils # 0.2 (0-0.7) k/uL Basophils # 0.0 (0-0.2) k/uL Sodium 138 (137-145) mmol/L Potassium 4.4 (3.5-5.1) mmol/L Chloride 108 H (98-107) mmol/L Carbon Dioxide 27 (22-30) mmol/L Anion Gap 3 mmol/L BUN 14 (9-20) mg/dL Creatinine 0.80 (0.66-1.25) mg/dL Est GFR (CKD-EPI)AfAm >90 (>60 ml/min/1.73 sqM) Est GFR (CKD-EPI)NonAf >90 (>60 ml/min/1.73 sqM) Glucose 105 H (74-99) mg/dL Calcium 9.3 (8.4-10.2) mg/dL Total Bilirubin 0.5 (0.2-1.3) mg/dL AST 1866 H (17-59) U/L ALT 470 H (21-72) U/L Alkaline Phosphatase 55 (38-126) U/L Creatine Kinase >89409 H* (55-170) U/L Total Protein 6.4 (6.3-8.2) g/dL Albumin 3.6 (3.5-5.0) g/dL Amylase 54 (30-110) U/L Lipase 40 (23-300) U/L Urine Color Yellow Urine Appearance Clear (Clear) Urine pH 7.0 (5.0-8.0) Ur Specific [place] 1.009 (1.001-1.035) Urine Protein 1+ H (Negative) Urine Glucose (UA) Negative (Negative) Urine Ketones Negative (Negative) Urine Blood Large H (Negative) Urine Nitrite Negative (Negative) Urine Bilirubin Negative (Negative) Urine Urobilinogen <2.0 (<2.0) mg/dL Ur Leukocyte Esterase Large H (Negative) Urine RBC <1 (0-5) /hpf Urine WBC 52 H (0-5) /hpf Ur Squamous Epith Cells <1 (0-4) /hpf Urine Bacteria Rare H (None) /hpf Urine Mucus Rare H (None) /hpf Disposition Clinical Impression: Rhabdomyolysis, Elevated LFTs Disposition: [facility] Condition: Serious Referrals: Carole Clark MD [Primary Care Provider] - 1-2 days Time of Disposition: 21:21
[2018-05-08 19:03] LABS: Basophils % (A) 0 %; Eosinophils # (A) 0.2 k/uL (0-0.7); Eosinophils % (A) 4 %; HCT 42.6 % (39.0-53.0); HGB 13.5 gm/dL (13.0-17.5); Lymphocytes # (A) 2.1 k/uL (1.0-4.8); Lymphocytes % (A) 38 %; MCH 26.8 pg (25.0-35.0); MCHC 31.7 g/dL (31.0-37.0); MCV 84.8 fL (80.0-100.0); Mean Platelet Volume 7.5; Monocytes # (A) 0.3 k/uL (0-1.0); Monocytes % (A) 6 %; Neutrophils # (A) 2.7 k/uL (1.3-7.7); Neutrophils % (A) 50 %; Platelet Count 243 k/uL (150-450); RBC 5.02 m/uL (4.30-5.90); RDW 13.6 % (11.5-15.5); WBC 5.5 k/uL (3.8-10.6)
[2018-05-08 19:12] VITALS: RESP 16
[2018-05-08 19:13] LABS: ALT 470 U/L (21-72); Albumin 3.6 g/dL (3.5-5.0); Alkaline Phosphatase 55 U/L (38-126); Amylase 54 U/L (30-110); Anion Gap 3 mmol/L; Blood Urea Nitrogen 14 mg/dL (9-20); Calcium 9.3 mg/dL (8.4-10.2); Carbon Dioxide 27 mmol/L (22-30); Chloride 108 mmol/L (98-107); Glucose 105 mg/dL (74-99); Lipase 40 U/L (23-300); Potassium 4.4 mmol/L (3.5-5.1); Sodium 138 mmol/L (137-145); Total Bilirubin 0.5 mg/dL (0.2-1.3); Total Protein 6.4 g/dL (6.3-8.2)
[2018-05-08 19:34] LABS: AST 1866 U/L (17-59)
[2018-05-08 20:29] LABS: Creatine Kinase >32000 U/L (55-170)
[2018-05-08 20:55] LABS: Appearance,Urine Clear (Clear); Bacteria,Urine Rare /hpf; Bilirubin,Urine Negative (Negative); Blood,Urine Large (Negative); Color,Urine Yellow; Glucose,Urine (UA) Negative (Negative); Ketones,Urine Negative (Negative); Leukocyte Esterase,Urine Large (Negative); Mucus,Urine Rare /hpf; Nitrite,Urine Negative (Negative); Protein,Urine 1+ (Negative); RBC,Urine <1 /hpf (0-5); Specific Gravity,Urine 1.009 (1.001-1.035); Squamous Epithelial Cell,Urine <1 /hpf (0-4); Urobilinogen,Urine <2.0 mg/dL (<2.0); WBC,Urine 52 /hpf (0-5)
[2018-05-08] MEDS ORDERED: MORPHINE SULFATE 4 MG/ML SYRINGE IV PRN (21:10)
[2018-05-08] MEDS ORDERED: ONDANSETRON 4 MG/2 ML VIAL IVP PRN (21:10)
[2018-05-08] MEDS ORDERED: NALOXONE 0.4 MG/ML 1 ML VIAL IV PRN (21:10)
[2018-05-08] MEDS: SODIUM CHLORIDE 0.9% 1,000 ML IV SCH (21:21)
[2018-05-08 21:34] LABS: INR 0.9 (<1.2); Partial Thromboplastin Time 22.2 sec (22.0-30.0); Prothrombin Time 9.5 sec (9.0-12.0)
[2018-05-08 21:58] VITALS: BMI 22.8
[2018-05-08] MEDS ORDERED: LORazepam 2 MG/ML INJ IM PRN (22:28)
[2018-05-08] MEDS ORDERED: HYDROmorphone 1 MG/ML 1 ML SYRINGE IM PRN ×2 (22:29)
[2018-05-08] MEDS ORDERED: HYDROmorphone 1 MG/ML 1 ML SYRINGE IVP PRN (23:06)
[2018-05-08] MEDS: NICOTINE 21MG/24HR PATCH TRANSDERM SCH (23:15)
[2018-05-08] MEDS: HYDROmorphone 1 MG/ML 1 ML SYRINGE IVP PRN (23:15)
[2018-05-09] MEDS: HYDROmorphone 1 MG/ML 1 ML SYRINGE IVP PRN ×4 (02:28→19:11)
[2018-05-09] MEDS: SODIUM CHLORIDE 0.9% 1,000 ML IV SCH ×3 (05:27→11:40)
[2018-05-09] MEDS: NICOTINE 21MG/24HR PATCH TRANSDERM SCH (08:13)
[2018-05-09 08:24] LABS: Anion Gap 8 mmol/L; Blood Urea Nitrogen 15 mg/dL (9-20); Calcium 8.6 mg/dL (8.4-10.2); Carbon Dioxide 17 mmol/L (22-30); Chloride 116 mmol/L (98-107); Glucose 71 mg/dL (74-99); Sodium 141 mmol/L (137-145); Total Bilirubin 0.4 mg/dL (0.2-1.3); Total Protein 5.7 g/dL (6.3-8.2)
[2018-05-09 08:27] LABS: ALT 394 U/L (21-72); Alkaline Phosphatase 52 U/L (38-126); Potassium 5.3 mmol/L (3.5-5.1)
[2018-05-09 11:09] LABS: AST 1444 U/L (17-59)
[2018-05-09 11:50] LABS: Creatine Kinase >32000 U/L (55-170)
[2018-05-09] MEDS: DEXTROSE 5% IN WATER 1,000 ML with SODIUM BICARB (1 MEQ/ML) 150 ML IV SCH (14:14)
[2018-05-09 14:52] LABS: Anion Gap 4 mmol/L; Blood Urea Nitrogen 15 mg/dL (9-20); Calcium 8.7 mg/dL (8.4-10.2); Carbon Dioxide 26 mmol/L (22-30); Chloride 109 mmol/L (98-107); Glucose 86 mg/dL (74-99); Potassium 4.5 mmol/L (3.5-5.1); Sodium 139 mmol/L (137-145)
[2018-05-09 15:22] LABS: Creatine Kinase >32000 U/L (55-170)
--- NOTE | 2018-05-09 15:48 | P.HPIM ---
History of Present Illness H&P Date: 05/09/18 Chief Complaint: Muscle aches Mr. Parikh is a 43-year-old male with the past medical history of seizure disorder coming into the hospital with a chief complaint of severe muscle aches. Patient was seen and evaluated in the emergency department for bilateral leg pain that started after he was doing a new workout regimen with a certified personal finance counselor. Labs showed elevated CPK levels and he was advised to get admitted. But patient left as he had work responsibilities. The patient came back again as his symptoms of bilateral lower extremity pain have worsened and he was unable to work. Patient denies having any chest pain. No palpitations. No cough or difficulty in breathing. No fever chills or rigors. Patient denies having any abdominal pain nausea vomiting or diarrhea. Patient states that his urine is dark in color. In the ED patient's CPK level was found to be more than 32,000 and he has been admitted for further management. Today the patient is lying in bed. He mentions that he still has pain in his bilateral lower extremities and also that he feels soreness in the chest wall. Review of Systems REVIEW OF SYSTEMS: PSYCH: No anxiety or depression NEURO: Patient has history of seizures. Last seizure was 3 months back. VASCULAR: Peripheral nervous system within the normal limits no edema HEMATOLOGIC: No history of easy bleeding and bruising . No recent infections . RESPIRATORY: No cough, No SOB, No chest discomfort. IMMUNE: No infections INTEGUMENT: no rashes OPHTHALMOLOGIC: No blurry vision and no eye discharge : Dark colored urine CARDIAC: No chest pain , shortness of breath , paroxysmal nocturnal dyspnea MUSCULOSKELETAL : Generalized body aches. GI: No abdominal pain, Nausea or vomiting. No constipation or diarrhea. Past Medical History Past Medical History: Seizure Disorder Additional Past Medical History / Comment(s): Last seizure 04/22, History of Any Multi-Drug Resistant Organisms: None Reported Past Surgical History: Orthopedic Surgery Additional Past Surgical History / Comment(s): R arm/R hand surgery d/t injuries. Past Anesthesia/Blood Transfusion Reactions: No Reported Reaction Additional Past Anesthesia/Blood Transfusion Reaction / Comment(s): Pt received blood in past without reaction. Past Psychological History: Anxiety, Depression Additional Psychological History / Comment(s): Pt resides with his spouse and their two boys, ages 12 and 13. Pt works in [employer] on the afternoon shift but is switching to dayshift this coming Thursday. Pt does not drive, he uses the bus to get places. Smoking Status: Current every day smoker Past Alcohol Use History: None Reported Additional Past Alcohol Use History / Comment(s): Pt started smoking in 1994 and is a ppd smoker. Past Drug Use History: None Reported - Past Family History Mother Family Medical History: No Reported History Additional Family Medical History / Comment(s): Mother is healthy. Father History Unknown: Yes Family Medical History: No Reported History Additional Family Medical History / Comment(s): Father is healthy Medications and Allergies Home Medications Medication Instructions Recorded Confirmed Type levETIRAcetam [Keppra] 750 mg PO BID 04/16/18 05/09/18 History Nicotine 21Mg/24Hr Patch [Habitrol] 21 mg TOPICAL DAILY 05/09/18 05/09/18 History Allergies Allergy/AdvReac Type Severity Reaction Status Date / Time No Known Allergies Allergy Verified 05/09/18 14:36 Physical Exam Vitals: Vital Signs Temp Pulse Pulse Resp BP BP Pulse Ox 05/09/18 14:43 98.7 F 113/77 05/09/18 07:23 16 05/09/18 07:22 97.5 F L 78 16 104/64 100 05/09/18 01:39 EDT 98.0 F 73 106/67 100 05/08/18 21:37 98.0 F 72 16 115/84 100 05/08/18 21:15 64 16 123/79 100 05/08/18 19:11 63 16 134/86 100 05/08/18 18:10 98.8 F 76 18 135/88 100 Intake and Output 05/09/18 05/09/18 05/09/18 06:59 14:59 22:59 Intake Total Balance Intake: Intake, IV Titration Amount Sodium Chloride 0.9% 1, 000 ml @ 200 mls/hr IV . Q5H [facility] Rx#:[id number] Sodium Chloride 0.9% 1, 000 ml @ 999 mls/hr IV . Q1H1M [facility] Rx#:[id number] Other: Voiding Method Toilet # Voids 1 GENERAL EXAM GEN. APPEARANCE: alert, in no apparent distress HEAD EXAM: atraumatic, normocephalic, normal inspection EYE EXAM: No pallor no icterus ENT EXAM: normal exam, mucous membranes moist NECK EXAM: No JVD. No thyromegaly. RESPIRATORY EXAM: Bilateral breath sounds positive. No wheezes or crackles. CARDIOVASCULAR EXAM: S1-S2 heard. No additional sounds. GI/ABDOMINAL EXAM: soft, normal bowel sounds. Absent: distended, tenderness, guarding, rebound, rigid EXTREMITIES EXAM: No edema. NEUROLOGICAL EXAM: alert, oriented X3, no focal neurological deficits. PSYCHIATRIC EXAM: normal affect, normal mood SKIN EXAM: warm, dry, intact, normal color. Absent: rash Results CBC & Chem 7: 05/08/18 18:46 05/09/18 13:55 Labs: Abnormal Lab Results - Last 24 Hours (Table) 05/08/18 05/08/18 05/09/18 Range/Units 18:46 19:53 06:34 Potassium 5.3 H (3.5-5.1) mmol/L Chloride 108 H 116 H (98-107) mmol/L Carbon Dioxide 17 L (22-30) mmol/L Glucose 105 H 71 L (74-99) mg/dL AST 1866 H (17-59) U/L ALT 470 H 394 H (21-72) U/L Creatine Kinase >68649 H* (55-170) U/L Total Protein 5.7 L (6.3-8.2) g/dL Albumin 3.0 L (3.5-5.0) g/dL Urine Protein 1+ H (Negative) Urine Blood Large H (Negative) Ur Leukocyte Esterase Large H (Negative) Urine WBC 52 H (0-5) /hpf Urine Bacteria Rare H (None) /hpf Urine Mucus Rare H (None) /hpf 05/09/18 05/09/18 Range/Units 10:25 13:55 Potassium (3.5-5.1) mmol/L Chloride 109 H (98-107) mmol/L Carbon Dioxide (22-30) mmol/L Glucose (74-99) mg/dL AST 1444 H (17-59) U/L ALT (21-72) U/L Creatine Kinase >07103 H* >05882 H* (55-170) U/L Total Protein (6.3-8.2) g/dL Albumin (3.5-5.0) g/dL Urine Protein (Negative) Urine Blood (Negative) Ur Leukocyte Esterase (Negative) Urine WBC (0-5) /hpf Urine Bacteria (None) /hpf Urine Mucus (None) /hpf Assessment and Plan Assessment: ASSESSMENT Rhabdomyolysis - after strenuous workout Elevated LFTs History of seizure disorder Plan: Patient has been started on IV fluids at 200 mL per hour, to be continued. Will repeat lytes for tomorrow morning. Resume his home medications for seizure disorder. Nephrology has been consulted and following the patient. Further recommendations to follow depending on the progress of the patient.
--- NOTE | 2018-05-09 15:59 | CONS ---
CONSULTATION REASON FOR CONSULT: Rhabdomyolysis. HISTORY OF PRESENT ILLNESS: Patient is a 43-year-old male who was admitted to the hospital with complaints of increasing weakness in his lower extremities and muscle aches as well. The patient stated that he had been working out strenuously recently. He denied any nausea, vomiting, abdominal pain, or diarrhea. He denied being outside in a hot environment, but he did state that it was intense workout for the last 3 times that he was working out with a business trainer. The patient's CPK level was noted to be more than 32,000. His serum creatinine was at 0.8 mg/dL. There is no history of use of statins. PAST MEDICAL HISTORY: Seizure disorder maintained on Keppra. PAST SURGICAL HISTORY: Right arm surgery for an injury. There is history of depression. SOCIAL HISTORY: Negative for smoking, drug abuse or alcohol abuse. MEDICATIONS: Medications at home prior to admission, Keppra. ALLERGIES: None. REVIEW OF SYSTEMS: As per HPI. Other systems negative. EXAMINATION: Patient is comfortable, awake, alert, oriented x3, not in any acute distress. Blood pressure was 106/67, heart rate 73 per minute. Patient is afebrile. Examination of the heart S1, S2. Examination of the lungs bilateral breath sounds are heard. Abdomen is soft, nontender. Examination of lower extremity shows no evidence of edema. BUSINESS PROCESS ANALYST exam is grossly intact. Patient moving all 4 extremities. His lab show sodium 141, potassium 5.3, chloride 116, CO2 17, BUN 15, serum creatinine 0.86, AST 1866 yesterday, down to 1444 today and ALT at 470 down to 394. CK remains higher than 32,000. UA shows blood, large, RBCs, less than 1 assessment and protein 1+. ASSESSMENT: 1. Rhabdomyolysis associated with intense workout and muscle breakdown. Renal function is currently fairly well preserved. I will change the IV fluids to IV bicarb since there is an element of metabolic acidosis noted on labs from today. 2. Mild hyperkalemia associated with severe rhabdomyolysis and mild acidosis. Expect improvement with the initiation of IV bicarb. 3. Elevated liver enzymes, currently improving. 4. Metabolic acidosis. The patient will be started on IV bicarb. Etiology is IV fluids and ongoing rhabdomyolysis. PLAN: Change IV fluids to IV bicarb. Maintain adequate oral hydration as well. Repeat labs in a.m. The patient is advised that he should stay for at least 1 more night for IV hydration. Check a TSH level as well. Thank you for this consultation. We will continue to follow the patient with you during his hospitalization. MRAVIN / CB: [id number] /
[2018-05-10] MEDS: DEXTROSE 5% IN WATER 1,000 ML with SODIUM BICARB (1 MEQ/ML) 150 ML IV SCH ×5 (00:19→23:13)
[2018-05-10] MEDS: HYDROmorphone 1 MG/ML 1 ML SYRINGE IVP PRN ×3 (04:54→19:09)
[2018-05-10 07:47] LABS: Basophils % (A) 0 %; Eosinophils % (A) 1 %; HCT 41.5 % (39.0-53.0); HGB 13.4 gm/dL (13.0-17.5); Lymphocytes # (A) 0.8 k/uL (1.0-4.8); Lymphocytes % (A) 18 %; MCH 26.8 pg (25.0-35.0); MCHC 32.3 g/dL (31.0-37.0); Mean Platelet Volume 7.3; Monocytes # (A) 0.2 k/uL (0-1.0); Monocytes % (A) 5 %; Neutrophils # (A) 3.3 k/uL (1.3-7.7); Neutrophils % (A) 75 %; Platelet Count 237 k/uL (150-450); RDW 13.4 % (11.5-15.5); WBC 4.4 k/uL (3.8-10.6)
[2018-05-10 08:17] LABS: ALT 370 U/L (21-72); Albumin 3.1 g/dL (3.5-5.0); Alkaline Phosphatase 46 U/L (38-126); Anion Gap 5 mmol/L; Blood Urea Nitrogen 12 mg/dL (9-20); Calcium 8.9 mg/dL (8.4-10.2); Carbon Dioxide 28 mmol/L (22-30); Chloride 105 mmol/L (98-107); Glucose 101 mg/dL (74-99); Potassium 4.4 mmol/L (3.5-5.1); Sodium 138 mmol/L (137-145); Total Bilirubin 0.3 mg/dL (0.2-1.3); Total Protein 5.8 g/dL (6.3-8.2)
[2018-05-10 08:25] LABS: AST 1174 U/L (17-59)
[2018-05-10] MEDS: NICOTINE 21MG/24HR PATCH TRANSDERM SCH (08:30)
[2018-05-10 10:01] LABS: Creatine Kinase >32000 U/L (55-170)
--- NOTE | 2018-05-10 10:38 | P.PN ---
Subjective 43-year-old man came in with highly elevated CPK and rhabdomyolysis. Creatinine is within normal limits now patient's liver enzymes are going up a little bit because of which we'll repeat the liver enzymes tomorrow continue with IV fluids patient is presently on D5 with sodium bicarbonate nephrology is following the patient patient wanted to go home but I counseled him that he may need to stay here as the actual level of CPK is unknown to me it is read as greater than 32,000. Patient has minimal tenderness in proximal muscles of both the legs. Patient muscle aches and rhabdomyolysis is secondary to excess workout. Constitutional: Denied any fatigue denied any fever. Cardio vascular: denied any chest pain, palpitations Gastrointestinal denied any nausea vomiting Pulmonary: Denied any shortness of breath cough Neurologic denied any new focal deficits Objective - Vital Signs Vital signs: Vital Signs Temp 98.7 F 05/10/18 07:00 Pulse 71 05/10/18 07:00 Resp 16 05/10/18 07:00 BP 100/64 05/10/18 07:00 Pulse Ox 97 05/10/18 07:00 Intake & Output 05/09/18 05/10/18 05/10/18 18:59 06:59 18:59 Intake Total 1800 Balance 1800 Intake: Intake, IV Titration 1800 Amount Dextrose 5% in Water 1, 1800 000 ml @ 150 mls/hr IV . Q7H40M [facility] with Sodium Bicarb (1 Meq/ml) 150 ml Rx#:[id number] Other: Voiding Method Toilet Toilet # Voids 1 6 - Exam PHYSICAL EXAMINATION: GENERAL: The patient is alert and oriented x3, not in any acute distress. Well developed, well nourished. HEENT: Pupils are round and equally reacting to light. EOMI. No scleral icterus. No conjunctival pallor. Normocephalic, atraumatic. No pharyngeal erythema. No thyromegaly. CARDIOVASCULAR: S1 and S2 present. No murmurs, rubs, or gallops. PULMONARY: Chest is clear to auscultation, no wheezing or crackles. ABDOMEN: Soft, nontender, nondistended, normoactive bowel sounds. No palpable organomegaly. MUSCULOSKELETAL: No joint swelling or deformity. Tenderness in the proximal muscles of both legs EXTREMITIES: No cyanosis, clubbing, or pedal edema. NEUROLOGICAL: Gross neurological examination did not reveal any focal deficits. SKIN: No rashes. - Labs CBC & Chem 7: 05/10/18 06:55 05/10/18 06:55 Labs: Abnormal Lab Results - Last 24 Hours (Table) 05/09/18 05/09/18 05/10/18 Range/Units 10:25 13:55 06:55 Lymphocytes # 0.8 L (1.0-4.8) k/uL Chloride 109 H (98-107) mmol/L Glucose (74-99) mg/dL AST 1444 H (17-59) U/L ALT (21-72) U/L Creatine Kinase >32173 H* >05792 H* (55-170) U/L Total Protein (6.3-8.2) g/dL Albumin (3.5-5.0) g/dL 05/10/18 Range/Units 06:55 Lymphocytes # (1.0-4.8) k/uL Chloride (98-107) mmol/L Glucose 101 H (74-99) mg/dL AST 1174 H (17-59) U/L ALT 370 H (21-72) U/L Creatine Kinase >92693 H* (55-170) U/L Total Protein 5.8 L (6.3-8.2) g/dL Albumin 3.1 L (3.5-5.0) g/dL Assessment and Plan Plan: -Rhabdo my lysis: IV fluids as mentioned above repeat CPK tomorrow -A elevated LFTs secondary to excess when necessary kinase is expected to improve we'll repeat liver enzymes tomorrow -Seizure disorder: Continue with Keppra -Depression
--- NOTE | 2018-05-10 12:46 | PN ---
PROGRESS NOTE Patient is seen for followup for rhabdomyolysis. His CK level was pending this morning when patient was seen, however, it is back and it remains above 32,000. The patient has been fairly well hydrated. He wants to go home today. He was switched over to bicarb drip yesterday. The patient states his pain is improved. He is able to ambulate fairly well. PHYSICAL EXAMINATION: On examination, blood pressure was 100/64, heart rate 71 per minute. He is afebrile. EXAMINATION OF THE HEART: S1 and S2. EXAMINATION OF THE LUNGS: Bilateral breath sounds are heard. Abdomen is soft, nontender. Examination of the lower extremities shows no evidence of edema. ORTHOPEDIC SHOES SALESPERSON exam is grossly intact. LABS: Labs show sodium 138, potassium 4.4, chloride 105, BUN 12, serum creatinine 0.71. AST is down to 1174, ALT at 370. CK level more than 32,000. ASSESSMENT: 1. Rhabdomyolysis. CK remains elevated. TSH is within normal limits. Etiology was strenuous workout which was fairly new for the patient. He is maintained on IV bicarb. Renal function is well preserved. The patient could be discharged from nephrology standpoint with plans to follow up with repeat CK levels in 3 to 4 days as outpatient. The patient is advised to maintain adequate oral hydration. 2. Non gap metabolic acidosis associated with rhabdomyolysis, currently improved on IV sodium bicarb. 3. Mild hyperkalemia associated with rhabdomyolysis, currently improved. 4. Elevated liver enzymes. The enzymes are trending down. This will be repeated again. 5. Seizure disorder, maintained on Keppra. PLAN: Okay for discharge from Nephrology standpoint in terms of the rhabdomyolysis with the oral hydration to be maintained and repeat labs to be done as outpatient. MMODL / IJN: [id number] /
[2018-05-11 07:26] VITALS: BP 124/78; PULSE 63; TEMP 98.4
[2018-05-11] MEDS: NICOTINE 21MG/24HR PATCH TRANSDERM SCH (07:35)
[2018-05-11] MEDS: DEXTROSE 5% IN WATER 1,000 ML with SODIUM BICARB (1 MEQ/ML) 150 ML IV SCH (07:35)
[2018-05-11 07:48] LABS: ALT 351 U/L (21-72); Albumin 3.5 g/dL (3.5-5.0); Alkaline Phosphatase 54 U/L (38-126); Anion Gap 7 mmol/L; Blood Urea Nitrogen 10 mg/dL (9-20); Calcium 9.3 mg/dL (8.4-10.2); Carbon Dioxide 30 mmol/L (22-30); Chloride 103 mmol/L (98-107); Glucose 101 mg/dL (74-99); Potassium 4.4 mmol/L (3.5-5.1); Sodium 140 mmol/L (137-145); Total Bilirubin 0.2 mg/dL (0.2-1.3); Total Protein 6.1 g/dL (6.3-8.2)
[2018-05-11 08:04] LABS: AST 739 U/L (17-59)
[2018-05-11 08:37] LABS: Creatine Kinase 27604 U/L (55-170)
--- NOTE | 2018-05-11 10:04 | P.DS ---
Providers Date of admission: 05/08/18 21:06 Attending physician: Vasyl Rhodes Consults: 05/08/18 21:11 Consult Physician Routine Consulting Provider: Felipa Perales Consult Reason/Comments: Rhabdomyolysis Do you want consulting provider notified?: Yes Primary care physician: Eduardo Lam [facility] Course: 43-year-old man came in with highly elevated CPK and rhabdomyolysis. Creatinine is within normal limits now patient's liver enzymes are going up a little bit because of which we'll repeat the liver enzymes tomorrow continue with IV fluids patient is presently on D5 with sodium bicarbonate nephrology is following the patient patient wanted to go home but I counseled him that he may need to stay here as the actual level of CPK is unknown to me it is read as greater than 32,000. Patient has minimal tenderness in proximal muscles of both the legs. Patient muscle aches and rhabdomyolysis is secondary to excess workout. 05/11/2018 Patient's CK did come down significantly and is around 25,000 today improving liver enzymes. Patient will be discharged today to follow up with the PCP as an outpatient. No overnight events. Patient was asked to drink lots of fluids at home. Patient can return to work tomorrow PHYSICAL EXAMINATION: GENERAL: The patient is alert and oriented x3, not in any acute distress. Well developed, well nourished. HEENT: Pupils are round and equally reacting to light. EOMI. No scleral icterus. No conjunctival pallor. Normocephalic, atraumatic. No pharyngeal erythema. No thyromegaly. CARDIOVASCULAR: S1 and S2 present. No murmurs, rubs, or gallops. PULMONARY: Chest is clear to auscultation, no wheezing or crackles. ABDOMEN: Soft, nontender, nondistended, normoactive bowel sounds. No palpable organomegaly. MUSCULOSKELETAL: No joint swelling or deformity. EXTREMITIES: No cyanosis, clubbing, or pedal edema. NEUROLOGICAL: Gross neurological examination did not reveal any focal deficits. SKIN: No rashes. Assessment and Plan Plan: -Rhabdo myolysis: Danielito now patient will be discharged today -A elevated LFTs . Secondary to rhabdomyolysis elevated CK. Improving now repeat liver enzymes as an outpatient. -Seizure disorder: Continue with Keppra -Depression Patient Condition at Discharge: Serious Plan - Discharge Summary New Discharge Prescriptions: No Action levETIRAcetam [Keppra] 750 mg PO BID Nicotine 21Mg/24Hr Patch [Habitrol] 21 mg TOPICAL DAILY Discharge Medication List levETIRAcetam [Keppra] 750 mg PO BID 04/16/18 [History] Nicotine 21Mg/24Hr Patch [Habitrol] 21 mg TOPICAL DAILY 05/09/18 [History] Follow up Appointment(s)/Referral(s): Carole Clark MD [Primary Care Provider] - 1-2 days Ambulatory/Diagnostic Orders: Comprehensive Metabolic Panel [LAB.AMB] Time Frame: 3 Days, Location: None Selected Patient Instructions/Handouts: Rhabdomyolysis (DC) Discharge Disposition: HOME SELF-CARE
== END 2018-05-11 10:23 | disposition home or self-care (01) | DRG 558 ==
LOC: EC 18:07 → 4SSUR 21:06
PROVIDERS: ADMIT Hospitalist; ATTEND Hospitalist
DX: M62.82 Rhabdomyolysis (principal); E87.2 Acidosis; E87.5 Hyperkalemia; F17.210 Nicotine dependence, cigarettes, uncomplicated; F32.9 Major depressive disorder, single episode, unspecified; F41.9 Anxiety disorder, unspecified; G40.909 Epilepsy, unspecified, not intractable, without status epilepticus; R74.8 Abnormal levels of other serum enzymes; Z79.899 Other long term (current) drug therapy
CPT/HCPCS: 36415; 80048; 80053; 81001; 82150; 82550; 83690; 84443; 84450; 85025; 85610; 85730; 96361; 96374; 99284

== ENCOUNTER → 2018-05-14 | Outpatient (CLI) | payer BC ==
[2018-05-14 17:21] LABS: Albumin 4.5 g/dL (3.80-4.90); Albumin/Globulin Ratio 2.25 (1.20-2.10); Anion Gap 10.9 mmol/L (4.00-12.00); Calcium 9.4 mg/dL (8.7-10.3); Carbon Dioxide 22.1 mmol/L (21.6-31.8); Potassium 4.4 mmol/L (3.5-5.5); Total Bilirubin 0.2 mg/dL (0.2-1.2); Total Protein 6.5 g/dL (6.2-8.2)
== END | disposition home or self-care (01) ==
LOC: LABWHC1 08:34
PROVIDERS: ATTEND Internal Medicine
DX: R74.8 Abnormal levels of other serum enzymes (principal)
CPT/HCPCS: 36415; 80053

== ENCOUNTER 2018-10-12 16:05 | Emergency (ER) | payer BC ==
[2018-10-12 16:09] VITALS: BP 114/69; PULSE 66; RESP 16; TEMP 98
--- NOTE | 2018-10-12 16:26 | XR ---
EXAMINATION TYPE: XR foot complete RT DATE OF EXAM: 10/12/2018 CLINICAL HISTORY: Base of the fifth metatarsal pain for months with no known injury. TECHNIQUE: Frontal, lateral, and oblique images of the right foot are obtained. COMPARISON: None FINDINGS: There is no acute fracture/dislocation evident in the right foot. The joint spaces in the right foot appear within normal limits. The overlying soft tissue appears unremarkable. IMPRESSION: There is no acute fracture or dislocation in the right foot.
--- NOTE | 2018-10-12 16:44 | ED ---
Extremity Problem HPI - General Chief complaint: Extremity Problem,Nontraumatic Stated complaint: Foot pain Time Seen by Provider: 10/12/18 16:11 Source: patient Mode of arrival: ambulatory Limitations: no limitations - History of Present Illness Initial comments: 43yo male presenting today for chief complaint of right foot pain and vomiting 2 months. Patient states noticed bump on sole of foot x 2 months. Painful to apply pressure. denies redness, fever, chills, nightsweats, trauma to the foot or drainage. Remaining review of systems negative, patient denies any recent shortness of breath, chest pain, back pain, abdominal pain, nausea or vomiting, numbness or tingling, dysuria or hematuria, constipation or diarrhea, headaches or visual changes, or any other complaints. - Related Data Home Medications Medication Instructions Recorded Confirmed levETIRAcetam [Keppra] 750 mg PO BID 04/16/18 05/09/18 Nicotine 21Mg/24Hr Patch [Habitrol] 21 mg TOPICAL DAILY 05/09/18 05/09/18 Allergies Allergy/AdvReac Type Severity Reaction Status Date / Time No Known Allergies Allergy Verified 10/12/18 16:08 Review of Systems ROS Statement: Those systems with pertinent positive or pertinent negative responses have been documented in the HPI. ROS Other: All systems not noted in ROS Statement are negative. Past Medical History Past Medical History: Seizure Disorder Additional Past Medical History / Comment(s): Last seizure 04/22 History of Any Multi-Drug Resistant Organisms: None Reported Past Surgical History: Orthopedic Surgery Additional Past Surgical History / Comment(s): R arm/R hand surgery d/t injuries. Past Anesthesia/Blood Transfusion Reactions: No Reported Reaction Additional Past Anesthesia/Blood Transfusion Reaction / Comment(s): Pt received blood in past without reaction. Past Psychological History: Anxiety, Depression Smoking Status: Current every day smoker Past Alcohol Use History: None Reported Past Drug Use History: None Reported - Past Family History Mother Family Medical History: No Reported History Additional Family Medical History / Comment(s): Mother is healthy. Father History Unknown: Yes Family Medical History: No Reported History Additional Family Medical History / Comment(s): Father is healthy General Exam - General Exam Comments Initial Comments: General: The patient is awake and alert, in no distress, and does not appear acutely ill. Cardiovascular: There is a regular rate and rhythm. No murmur, rub or gallop is appreciated. Respiratory: Lungs are clear to auscultation, respirations are non-labored, breath sounds are equal. No wheezes, stridor, rales, or rhonchi. Musculoskeletal: Normal ROM, no tenderness. Strength 5/5. Sensation intact. Pulses equal bilaterally 2+. Neurological: A&O x 3. CN II-XII intact, There are no obvious motor or sensory deficits. Coordination appears grossly intact. Speech is normal. Skin: Skin is warm and dry and no rashes or lesions are noted. Raised lesion on the right plantar surface of the foot, thrombosed veins. Less than 1 cm. No surrounding erythema and no fluctuance. Psychiatric: Cooperative, appropriate mood & affect, normal judgment. Limitations: no limitations Course Vital Signs 10/12/18 16:06 Temperature 98.0 F Pulse Rate 66 Respiratory 16 Rate Blood Pressure 114/69 O2 Sat by Pulse 100 Oximetry Medical Decision Making - Medical Decision Making Physical examination revealed plantar wart. Appears deep. Referred to dermatology for removal. Patient agreeable plants. Discharge. No findings consistent with infectious etiology. Patient be discharged with outpatient f/u. Return parameters were discussed at length the patient verbalizes understanding. Case discussed with a provider Dr. Stewart prior ot d/c Disposition Clinical Impression: Plantar wart Disposition: HOME SELF-CARE Condition: Good Instructions (If sedation given, give patient instructions): Plantar Wart (ED) Additional Instructions: Please use medication as discussed. Please follow-up with family doctor in the next 2 days of symptoms have not improved. Please return to emergency room if the symptoms increase or worsen or for any other concerns. Is patient prescribed a controlled substance at d/c from ED?: No Referrals: Carole Clark MD [Primary Care Provider] - 1-2 days Damien Molina MD [STAFF PHYSICIAN] - 1-2 days Ramona Molina MD [STAFF PHYSICIAN] - 1-2 days Time of Disposition: 16:44
== END 2018-10-12 16:59 | disposition home or self-care (01) ==
LOC: EC 16:05
DX: B07.0 Plantar wart (principal); R11.10 Vomiting, unspecified; G40.909 Epilepsy, unspecified, not intractable, without status epilepticus; F17.200 Nicotine dependence, unspecified, uncomplicated; Z79.899 Other long term (current) drug therapy
CPT/HCPCS: 99283

== ENCOUNTER 2018-10-29 10:23 | Emergency (ER) | payer BC ==
[2018-10-29 10:33] VITALS: RESP 16
[2018-10-29] MEDS ORDERED: SODIUM CHLORIDE 0.9% 1,000 ML IV STA (11:14)
[2018-10-29] MEDS ORDERED: levETIRAcetam 500 MG TAB PO STA (11:14)
--- NOTE | 2018-10-29 11:16 | ED ---
Seizure HPI - General Chief Complaint: Seizure Stated Complaint: Seizure Time Seen by Provider: 10/29/18 10:45 Source: patient Mode of arrival: EMS Limitations: no limitations - History of Present Illness Initial Comments: Patient presents after seizure. He denies any pain. He has no focal weakness. He has no headache, lightheadedness or dizziness. He denies nausea or vomiting. He has no belly or back pain. He does not always take his Keppra. - Related Data Home Medications Medication Instructions Recorded Confirmed levETIRAcetam [Keppra] 750 mg PO BID 04/16/18 05/09/18 Nicotine 21Mg/24Hr Patch [Habitrol] 21 mg TOPICAL DAILY 05/09/18 05/09/18 Allergies Allergy/AdvReac Type Severity Reaction Status Date / Time No Known Allergies Allergy Verified 10/12/18 16:08 Review of Systems ROS Statement: Those systems with pertinent positive or pertinent negative responses have been documented in the HPI. ROS Other: All systems not noted in ROS Statement are negative. Past Medical History Past Medical History: Seizure Disorder Additional Past Medical History / Comment(s): Last seizure 10/29/2018 History of Any Multi-Drug Resistant Organisms: None Reported Past Surgical History: Orthopedic Surgery Additional Past Surgical History / Comment(s): R arm/R hand surgery d/t injuries. Past Anesthesia/Blood Transfusion Reactions: No Reported Reaction Additional Past Anesthesia/Blood Transfusion Reaction / Comment(s): Pt received blood in past without reaction. Past Psychological History: Anxiety, Depression Smoking Status: Current every day smoker Past Alcohol Use History: None Reported Past Drug Use History: None Reported - Past Family History Mother Family Medical History: No Reported History Additional Family Medical History / Comment(s): Mother is healthy. Father History Unknown: Yes Family Medical History: No Reported History Additional Family Medical History / Comment(s): Father is healthy General Exam Limitations: no limitations General appearance: alert, in no apparent distress Head exam: Present: atraumatic, normocephalic, normal inspection Eye exam: Present: normal appearance, PERRL, EOMI. Absent: scleral icterus, conjunctival injection, periorbital swelling ENT exam: Present: normal exam, mucous membranes moist Neck exam: Present: normal inspection. Absent: tenderness, meningismus, lymphadenopathy Respiratory exam: Present: normal lung sounds bilaterally. Absent: respiratory distress, wheezes, rales, rhonchi, stridor Cardiovascular Exam: Present: regular rate, normal rhythm, normal heart sounds. Absent: systolic murmur, diastolic murmur, rubs, gallop, clicks GI/Abdominal exam: Present: soft, normal bowel sounds. Absent: distended, tenderness, guarding, rebound, rigid Extremities exam: Present: normal inspection, full ROM, normal capillary refill. Absent: tenderness, pedal edema, joint swelling, calf tenderness Back exam: Present: normal inspection Neurological exam: Present: alert, oriented X3, CN II-XII intact Psychiatric exam: Present: normal affect, normal mood Skin exam: Present: warm, dry, intact, normal color. Absent: rash Course Vital Signs 10/29/18 10/29/18 10:28 11:55 Temperature 98.3 F Pulse Rate 89 73 Respiratory 16 16 Rate Blood Pressure 109/62 O2 Sat by Pulse 98 100 Oximetry Medical Decision Making - Medical Decision Making Patient presented with seizure disorder. His laboratory studies are within acceptable limits. He has remained seizure-free. He received an extra doses medication. Patient is counseled to make sure that he takes his Keppra as prescribed. He will follow-up with neurology as an outpatient. - Lab Data Result diagrams: 10/29/18 11:40 10/29/18 11:40 Lab Results 10/29/18 10/29/18 Range/Units 11:40 11:40 WBC 6.8 (3.8-10.6) k/uL RBC 5.51 (4.30-5.90) m/uL Hgb 14.8 (13.0-17.5) gm/dL Hct 46.8 (39.0-53.0) % MCV 84.9 (80.0-100.0) fL MCH 26.8 (25.0-35.0) pg MCHC 31.6 (31.0-37.0) g/dL RDW 14.3 (11.5-15.5) % Plt Count 311 (150-450) k/uL Neutrophils % 85 % Lymphocytes % 8 % Monocytes % 5 % Eosinophils % 1 % Basophils % 0 % Neutrophils # 5.8 (1.3-7.7) k/uL Lymphocytes # 0.6 L (1.0-4.8) k/uL Monocytes # 0.3 (0-1.0) k/uL Eosinophils # 0.1 (0-0.7) k/uL Basophils # 0.0 (0-0.2) k/uL Sodium 140 (137-145) mmol/L Potassium 5.1 (3.5-5.1) mmol/L Chloride 108 H (98-107) mmol/L Carbon Dioxide 23 (22-30) mmol/L Anion Gap 9 mmol/L BUN 14 (9-20) mg/dL Creatinine 0.96 (0.66-1.25) mg/dL Est GFR (CKD-EPI)AfAm >90 (>60 ml/min/1.73 sqM) Est GFR (CKD-EPI)NonAf >90 (>60 ml/min/1.73 sqM) Glucose 110 H (74-99) mg/dL Calcium 9.7 (8.4-10.2) mg/dL Total Bilirubin 0.4 (0.2-1.3) mg/dL AST 43 (17-59) U/L ALT 36 (21-72) U/L Alkaline Phosphatase 73 (38-126) U/L Total Protein 7.7 (6.3-8.2) g/dL Albumin 4.7 (3.5-5.0) g/dL Disposition Clinical Impression: Seizure disorder Disposition: HOME SELF-CARE Condition: Good Instructions (If sedation given, give patient instructions): Recurrent Seizures in Adults (ED) Is patient prescribed a controlled substance at d/c from ED?: No Referrals: Carole Clark MD [Primary Care Provider] - 1-2 days
[2018-10-29 11:57] LABS: Basophils % (A) 0 %; Eosinophils # (A) 0.1 k/uL (0-0.7); Eosinophils % (A) 1 %; HCT 46.8 % (39.0-53.0); HGB 14.8 gm/dL (13.0-17.5); Lymphocytes # (A) 0.6 k/uL (1.0-4.8); Lymphocytes % (A) 8 %; MCH 26.8 pg (25.0-35.0); MCHC 31.6 g/dL (31.0-37.0); MCV 84.9 fL (80.0-100.0); Mean Platelet Volume 7.3; Monocytes # (A) 0.3 k/uL (0-1.0); Monocytes % (A) 5 %; Neutrophils # (A) 5.8 k/uL (1.3-7.7); Neutrophils % (A) 85 %; Platelet Count 311 k/uL (150-450); RBC 5.51 m/uL (4.30-5.90); RDW 14.3 % (11.5-15.5); WBC 6.8 k/uL (3.8-10.6)
[2018-10-29 12:08] LABS: ALT 36 U/L (21-72); AST 43 U/L (17-59); Albumin 4.7 g/dL (3.5-5.0); Alkaline Phosphatase 73 U/L (38-126); Anion Gap 9 mmol/L; Blood Urea Nitrogen 14 mg/dL (9-20); Calcium 9.7 mg/dL (8.4-10.2); Carbon Dioxide 23 mmol/L (22-30); Chloride 108 mmol/L (98-107); Glucose 110 mg/dL (74-99); Potassium 5.1 mmol/L (3.5-5.1); Sodium 140 mmol/L (137-145); Total Bilirubin 0.4 mg/dL (0.2-1.3); Total Protein 7.7 g/dL (6.3-8.2)
--- NOTE | 2018-10-29 12:27 | ED ---
Medical Decision Making - Lab Data Result diagrams: 10/29/18 11:40 10/29/18 11:40 Lab Results 10/29/18 10/29/18 Range/Units 11:40 11:40 WBC 6.8 (3.8-10.6) k/uL RBC 5.51 (4.30-5.90) m/uL Hgb 14.8 (13.0-17.5) gm/dL Hct 46.8 (39.0-53.0) % MCV 84.9 (80.0-100.0) fL MCH 26.8 (25.0-35.0) pg MCHC 31.6 (31.0-37.0) g/dL RDW 14.3 (11.5-15.5) % Plt Count 311 (150-450) k/uL Neutrophils % 85 % Lymphocytes % 8 % Monocytes % 5 % Eosinophils % 1 % Basophils % 0 % Neutrophils # 5.8 (1.3-7.7) k/uL Lymphocytes # 0.6 L (1.0-4.8) k/uL Monocytes # 0.3 (0-1.0) k/uL Eosinophils # 0.1 (0-0.7) k/uL Basophils # 0.0 (0-0.2) k/uL Sodium 140 (137-145) mmol/L Potassium 5.1 (3.5-5.1) mmol/L Chloride 108 H (98-107) mmol/L Carbon Dioxide 23 (22-30) mmol/L Anion Gap 9 mmol/L BUN 14 (9-20) mg/dL Creatinine 0.96 (0.66-1.25) mg/dL Est GFR (CKD-EPI)AfAm >90 (>60 ml/min/1.73 sqM) Est GFR (CKD-EPI)NonAf >90 (>60 ml/min/1.73 sqM) Glucose 110 H (74-99) mg/dL Calcium 9.7 (8.4-10.2) mg/dL Total Bilirubin 0.4 (0.2-1.3) mg/dL AST 43 (17-59) U/L ALT 36 (21-72) U/L Alkaline Phosphatase 73 (38-126) U/L Total Protein 7.7 (6.3-8.2) g/dL Albumin 4.7 (3.5-5.0) g/dL - EKG Data EKG Comments: I obtained a 12-lead EKG which I interpreted as showing ventricular rate 94 bpm, normal AL interval Ed complex is, no ST elevation or depression, interpreted by me as normal sinus rhythm. Disposition Clinical Impression: Seizure disorder Disposition: HOME SELF-CARE Condition: Good Instructions (If sedation given, give patient instructions): Recurrent Seizures in Adults (ED) Is patient prescribed a controlled substance at d/c from ED?: No Referrals: Carole Clark MD [Primary Care Provider] - 1-2 days
[2018-10-29 12:50] VITALS: BP 112/69; PULSE 78; TEMP 98
== END 2018-10-29 12:49 | disposition home or self-care (01) ==
LOC: EC 10:23
DX: G40.909 Epilepsy, unspecified, not intractable, without status epilepticus (principal); F17.200 Nicotine dependence, unspecified, uncomplicated; Z79.899 Other long term (current) drug therapy
CPT/HCPCS: 36415; 80053; 85025; 93005; 96360; 99284

== ENCOUNTER 2019-01-20 13:25 | Day surgery (SDC) | payer BC ==
[2019-01-19 13:35] VITALS: BMI 22.4
[2019-01-20 13:37] VITALS: RESP 18; TEMP 97.8
[2019-01-20] MEDS ORDERED: LACTATED RINGERS 1,000 ML IV ONE (13:37)
[2019-01-20] MEDS ORDERED: LIDOCAINE 1% 20 ML VIAL (10MG/ML) FOR IV START INTRADERMA ONE (13:38)
[2019-01-20] MEDS ORDERED: LIDOCAINE 1% INJ 10MG/ML (20 ML MDV) ONE (14:24)
[2019-01-20] MEDS ORDERED: PROPOFOL 10 MG/ML 20 ML VIAL IV ONE (14:24)
[2019-01-20 15:26] VITALS: BP 110/72; PULSE 63
--- NOTE | 2019-01-22 13:17 | P.PCN ---
Date of Procedure: 01/20/19 Description of Procedure: BRIEF HISTORY: Patient is a 43-year-old male who presents for outpatient EGD. The patient has been having symptoms of reflux and epigastric abdominal pain. The patient reports he is been occurring frequently. Currently he is on omeprazole daily with breakthrough symptoms. PROCEDURE PERFORMED: Esophagogastroduodenoscopy with biopsy. PREOPERATIVE DIAGNOSIS: GERD, epigastric abdominal pain. ESTIMATED BLOOD LOSS: Minimal. IV sedation per anesthesia. PROCEDURE: After informed consent was obtained, the patient was brought into the endoscopy unit. IV sedation was administered by Anesthesia under continuous monitoring. Initially the Olympus GIF-190 video endoscope was inserted into the mouth. Esophagus intubated without any difficulty. It was gradually advanced into the stomach and duodenum and carefully examined. The bulb and the second part of the duodenum appeared normal, with biopsies taken. The scope at this time was withdrawn to the stomach, adequately insufflated with air, and upon careful examination, mucosa of the antrum, body, cardia and the fundus appeared normal, with mild scattered erythema in the antrum and body suggestive of mild gastritis with biopsies taken. Small hiatal hernia noted. The scope was then withdrawn into the esophagus. The GE junction was located at 39 cm from the incisors, with biopsies taken in the setting of suspected reflux esophagitis. The esophagus appeared normal, with mid esophageal biopsies taken. There were no erosions or ulcerations seen and the patient tolerated the procedure well. IMPRESSION: 1. Mild gastritis antrum and body, biopsied. 2. Reflux esophagitis, GE junction biopsy. 3. Small hiatal hernia. 4. Duodenal biopsies. 5. Esophageal biopsies. RECOMMENDATIONS: The findings of this examination were discussed with the patient his and mother. Okay to resume diet. Patient is given a prescription for omeprazole 20 mg twice daily. GERD lifestyle modifications reviewed. Await pathology from biopsies.
== END 2019-01-20 15:37 | disposition home or self-care (01) ==
LOC: ORWHC2ENDO 13:25
PROVIDERS: ATTEND Internal Medicine
DX: K20.0 Eosinophilic esophagitis (principal); K29.50 Unspecified chronic gastritis without bleeding; K44.9 Diaphragmatic hernia without obstruction or gangrene; F17.210 Nicotine dependence, cigarettes, uncomplicated; F41.9 Anxiety disorder, unspecified; F32.9 Major depressive disorder, single episode, unspecified; Z79.899 Other long term (current) drug therapy
CPT/HCPCS: 88305; 43239; J2001; J2704

== ENCOUNTER 2019-01-23 20:12 | Emergency (ER) | payer BC ==
[2019-01-23 20:21] VITALS: RESP 18; TEMP 98.1
[2019-01-23] MEDS ORDERED: ONDANSETRON 4 MG/2 ML VIAL IVP STA (21:47)
[2019-01-23] MEDS ORDERED: MORPHINE SULFATE 4 MG/ML SYRINGE IV STA (21:47)
[2019-01-23] MEDS ORDERED: SODIUM CHLORIDE 0.9% 1,000 ML IV STA (21:47)
[2019-01-23 22:08] LABS: Basophils % (A) 0 %; Eosinophils # (A) 0.2 k/uL (0-0.7); Eosinophils % (A) 4 %; HCT 44.3 % (39.0-53.0); HGB 13.8 gm/dL (13.0-17.5); Lymphocytes # (A) 2.4 k/uL (1.0-4.8); Lymphocytes % (A) 44 %; MCH 26.3 pg (25.0-35.0); MCHC 31.2 g/dL (31.0-37.0); MCV 84.2 fL (80.0-100.0); Mean Platelet Volume 7.5; Monocytes # (A) 0.4 k/uL (0-1.0); Monocytes % (A) 7 %; Neutrophils # (A) 2.3 k/uL (1.3-7.7); Neutrophils % (A) 42 %; Platelet Count 250 k/uL (150-450); RBC 5.26 m/uL (4.30-5.90); WBC 5.5 k/uL (3.8-10.6)
[2019-01-23 22:16] VITALS: BP 107/79; PULSE 60
[2019-01-23 22:17] LABS: ALT 15 U/L (21-72); AST 33 U/L (17-59); African American GFR (CKD) >90 (>60 ml/min/1.73 sqM); Albumin 4.5 g/dL (3.5-5.0); Alkaline Phosphatase 70 U/L (38-126); Amylase 71 U/L (30-110); Anion Gap 11 mmol/L; Blood Urea Nitrogen 19 mg/dL (9-20); Calcium 9.5 mg/dL (8.4-10.2); Carbon Dioxide 22 mmol/L (22-30); Chloride 108 mmol/L (98-107); Glucose 107 mg/dL (74-99); Lipase 61 U/L (23-300); Sodium 141 mmol/L (137-145); Total Bilirubin 0.6 mg/dL (0.2-1.3); Total Protein 7.6 g/dL (6.3-8.2)
--- NOTE | 2019-01-23 22:30 | XR ---
EXAM: XR Abdomen, 1 View CLINICAL HISTORY: ITS.REASON XR Reason: abdominal pain TECHNIQUE: Frontal supine view of the abdomen/pelvis. COMPARISON: No relevant prior studies available. FINDINGS: Gastrointestinal tract: Copious amounts of stool throughout the colon. No dilation. Bones/joints: No acute fracture. No dislocation. IMPRESSION: No acute findings. Correlate with constipation.
[2019-01-23 22:43] LABS: Appearance,Urine Clear (Clear); Bilirubin,Urine Negative (Negative); Blood,Urine Negative (Negative); Color,Urine Yellow; Glucose,Urine (UA) Negative (Negative); Ketones,Urine Negative (Negative); Leukocyte Esterase,Urine Large (Negative); Mucus,Urine Rare /hpf; Nitrite,Urine Negative (Negative); PH, Urine 5.5 (5.0-8.0); Protein,Urine Negative (Negative); RBC,Urine 9 /hpf (0-5); Specific Gravity,Urine 1.024 (1.001-1.035); Squamous Epithelial Cell,Urine <1 /hpf (0-4); Urobilinogen,Urine <2.0 mg/dL (<2.0); WBC,Urine 48 /hpf (0-5)
--- NOTE | 2019-01-23 22:47 | ED ---
Abdominal Pain HPI - General Chief Complaint: Abdominal Pain Stated Complaint: Abd pain Time Seen by Provider: 01/23/19 20:52 Source: patient Mode of arrival: ambulatory Limitations: no limitations - History of Present Illness Initial Comments: 43-year-old male patient presents to the emergency department today for evaluation of upper abdominal pain. Patient had an EGD procedure on was diagnosed with a 2 cm hiatal hernia. Patient states that since then he has been having severe upper abdominal pain radiating through to his back. Patient states he is unable to lie down due to the pain. He is reporting radiation of the pain into his chest. States that he has been nauseated but has not vomited. Patient states his been attempting to keep the pain seems to worsen with eating. Denies any fever or chills with this. States he has been somewhat constipated. Denies any hematochezia or melena. Denies any history of abdominal surgery. P atient denies any recent rash, shortness breath, chest pain, numbness, tingling, dizziness, weakness, hematuria, dysuria, urinary urgency, urinary frequency, headache, visual changes, or any other complaints. - Related Data Home Medications Medication Instructions Recorded Confirmed levETIRAcetam [Keppra] 750 mg PO BID 04/16/18 01/19/19 Tylenol (Unknown Dose) 1 dose PO DIRECTED PRN 01/19/19 01/20/19 Previous Rx's Medication Instructions Recorded Polyethylene Glycol 3350 [Miralax] 17 gm PO DAILY #30 packet 01/23/19 Sulfamethoxazole/Trimethoprim 1 each PO BID #20 tablet 01/23/19 [Bactrim DS 800-160 mg] Allergies Allergy/AdvReac Type Severity Reaction Status Date / Time No Known Allergies Allergy Verified 01/19/19 13:27 Review of Systems ROS Statement: Those systems with pertinent positive or pertinent negative responses have been documented in the HPI. ROS Other: All systems not noted in ROS Statement are negative. Past Medical History Past Medical History: Seizure Disorder Additional Past Medical History / Comment(s): "having left sided abd pain and chest/gas,pain-hiatal hernia seen on CT scan",UTI,Last seizure 10/29/2018 History of Any Multi-Drug Resistant Organisms: None Reported Past Surgical History: Orthopedic Surgery Additional Past Surgical History / Comment(s): R arm/R hand surgery d/t injuries. EGD January 20 Past Anesthesia/Blood Transfusion Reactions: No Reported Reaction Additional Past Anesthesia/Blood Transfusion Reaction / Comment(s): Pt received blood in past without reaction. Past Psychological History: Anxiety, Depression Smoking Status: Current every day smoker Past Alcohol Use History: None Reported Past Drug Use History: None Reported - Past Family History Mother Family Medical History: No Reported History Additional Family Medical History / Comment(s): Mother is healthy. Father History Unknown: Yes Family Medical History: No Reported History Additional Family Medical History / Comment(s): Father is healthy General Exam Limitations: no limitations General appearance: alert, in no apparent distress, other (Physical well- developed, well-nourished adult male patient in no acute distress. Vital signs upon presentation are temperature 98.1F, pulse 75, respirations 18, blood pressure 116/76, pulse ox 100% on room air.) Eye exam: Present: normal appearance, PERRL, EOMI. Absent: scleral icterus, conjunctival injection, periorbital swelling ENT exam: Present: normal exam, normal oropharynx, mucous membranes moist Respiratory exam: Present: normal lung sounds bilaterally. Absent: respiratory distress, wheezes, rales, rhonchi, stridor Cardiovascular Exam: Present: regular rate, normal rhythm, normal heart sounds. Absent: systolic murmur, diastolic murmur, rubs, gallop, clicks GI/Abdominal exam: Present: soft, tenderness (Generalized abdominal tenderness), normal bowel sounds. Absent: distended, guarding, rebound, rigid Back exam: Present: normal inspection. Absent: CVA tenderness (R), CVA tenderness (L) Neurological exam: Present: alert, oriented X3, CN II-XII intact Psychiatric exam: Present: normal affect, normal mood Skin exam: Present: warm, dry, intact, normal color. Absent: rash Course Vital Signs 01/23/19 01/23/19 01/23/19 20:18 22:15 23:48 Temperature 98.1 F 98.1 F Pulse Rate 75 60 60 Respiratory 18 18 18 Rate Blood Pressure 116/76 107/79 107/79 O2 Sat by Pulse 100 99 99 Oximetry Medical Decision Making - Medical Decision Making 43-year-old male patient presents to the emergency department today for evaluation of abdominal pain. Physical examination revealed generalized abdominal tenderness. No guarding or rebound. Labs reviewed and are unremarkable. There is evidence for urinary tract infection however did send cultures for chlamydia and gonorrhea as well. KUB x-ray of the abdomen was obtained and showed an overall nonobstructive bowel gas pattern but copious amounts of stool throughout the colon. I did discuss findings and results with the patient. We will give magnesium citrate for constipation. He is instructed to follow-up with his primary care physician for recheck in 1-2 days. We'll treat with Bactrim for urinary tract infection. Return parameters were discussed in detail. He verbalizes understanding and agrees this plan. - Lab Data Result diagrams: 01/23/19 21:54 01/23/19 21:54 Lab Results 01/23/19 01/23/19 01/23/19 Range/Units 21:54 21:54 21:54 WBC 5.5 (3.8-10.6) k/uL RBC 5.26 (4.30-5.90) m/uL Hgb 13.8 (13.0-17.5) gm/dL Hct 44.3 (39.0-53.0) % MCV 84.2 (80.0-100.0) fL MCH 26.3 (25.0-35.0) pg MCHC 31.2 (31.0-37.0) g/dL RDW 14.0 (11.5-15.5) % Plt Count 250 (150-450) k/uL Neutrophils % 42 % Lymphocytes % 44 % Monocytes % 7 % Eosinophils % 4 % Basophils % 0 % Neutrophils # 2.3 (1.3-7.7) k/uL Lymphocytes # 2.4 (1.0-4.8) k/uL Monocytes # 0.4 (0-1.0) k/uL Eosinophils # 0.2 (0-0.7) k/uL Basophils # 0.0 (0-0.2) k/uL Sodium 141 (137-145) mmol/L Potassium 5.0 (3.5-5.1) mmol/L Chloride 108 H (98-107) mmol/L Carbon Dioxide 22 (22-30) mmol/L Anion Gap 11 mmol/L BUN 19 (9-20) mg/dL Creatinine 0.81 (0.66-1.25) mg/dL Est GFR (CKD-EPI)AfAm >90 (>60 ml/min/1.73 sqM) Est GFR (CKD-EPI)NonAf >90 (>60 ml/min/1.73 sqM) Glucose 107 H (74-99) mg/dL Plasma Lactic Acid Ian 1.4 (0.7-2.0) mmol/L Calcium 9.5 (8.4-10.2) mg/dL Total Bilirubin 0.6 (0.2-1.3) mg/dL AST 33 (17-59) U/L ALT 15 L (21-72) U/L Alkaline Phosphatase 70 (38-126) U/L Troponin I (0.000-0.034) ng/mL Total Protein 7.6 (6.3-8.2) g/dL Albumin 4.5 (3.5-5.0) g/dL Amylase 71 (30-110) U/L Lipase 61 (23-300) U/L Urine Color Urine Appearance (Clear) Urine pH (5.0-8.0) Ur Specific [place] (1.001-1.035) Urine Protein (Negative) Urine Glucose (UA) (Negative) Urine Ketones (Negative) Urine Blood (Negative) Urine Nitrite (Negative) Urine Bilirubin (Negative) Urine Urobilinogen (<2.0) mg/dL Ur Leukocyte Esterase (Negative) Urine RBC (0-5) /hpf Urine WBC (0-5) /hpf Ur Squamous Epith Cells (0-4) /hpf Urine Mucus (None) /hpf 01/23/19 01/23/19 Range/Units 21:54 22:00 WBC (3.8-10.6) k/uL RBC (4.30-5.90) m/uL Hgb (13.0-17.5) gm/dL Hct (39.0-53.0) % MCV (80.0-100.0) fL MCH (25.0-35.0) pg MCHC (31.0-37.0) g/dL RDW (11.5-15.5) % Plt Count (150-450) k/uL Neutrophils % % Lymphocytes % % Monocytes % % Eosinophils % % Basophils % % Neutrophils # (1.3-7.7) k/uL Lymphocytes # (1.0-4.8) k/uL Monocytes # (0-1.0) k/uL Eosinophils # (0-0.7) k/uL Basophils # (0-0.2) k/uL Sodium (137-145) mmol/L Potassium (3.5-5.1) mmol/L Chloride (98-107) mmol/L Carbon Dioxide (22-30) mmol/L Anion Gap mmol/L BUN (9-20) mg/dL Creatinine (0.66-1.25) mg/dL Est GFR (CKD-EPI)AfAm (>60 ml/min/1.73 sqM) Est GFR (CKD-EPI)NonAf (>60 ml/min/1.73 sqM) Glucose (74-99) mg/dL Plasma Lactic Acid Ian (0.7-2.0) mmol/L Calcium (8.4-10.2) mg/dL Total Bilirubin (0.2-1.3) mg/dL AST (17-59) U/L ALT (21-72) U/L Alkaline Phosphatase (38-126) U/L Troponin I <0.012 (0.000-0.034) ng/mL Total Protein (6.3-8.2) g/dL Albumin (3.5-5.0) g/dL Amylase (30-110) U/L Lipase (23-300) U/L Urine Color Yellow Urine Appearance Clear (Clear) Urine pH 5.5 (5.0-8.0) Ur Specific [place] 1.024 (1.001-1.035) Urine Protein Negative (Negative) Urine Glucose (UA) Negative (Negative) Urine Ketones Negative (Negative) Urine Blood Negative (Negative) Urine Nitrite Negative (Negative) Urine Bilirubin Negative (Negative) Urine Urobilinogen <2.0 (<2.0) mg/dL Ur Leukocyte Esterase Large H (Negative) Urine RBC 9 H (0-5) /hpf Urine WBC 48 H (0-5) /hpf Ur Squamous Epith Cells <1 (0-4) /hpf Urine Mucus Rare H (None) /hpf - EKG Data -: EKG Interpreted by Me EKG Comments: EKG obtained at 2245 shows normal sinus rhythm with a ventricular rate of 60, NJ interval 148, QRS duration 84, QT 402, QTc 402. No evidence of ST elevation or depression. - Radiology Data Radiology results: report reviewed, image reviewed KUB x-ray of the abdomen was obtained. Report reviewed in its entirety. Impression by Dr. Betancourt shows no acute findings. Correlate with constipation due to copious amounts of stool throughout the colon. Disposition Clinical Impression: Abdominal pain, Urinary tract infection Disposition: HOME SELF-CARE Condition: Good Instructions (If sedation given, give patient instructions): Constipation (ED), Urinary Tract Infection in Men (ED), Abdominal Pain (ED) Additional Instructions: Take one half bottle of magnesium citrate, if no bowel movement in 12 hours repeat the dose. Take MiraLAX as directed for bowel movements. Increase fluids. Follow-up through primary care physician for repeat urine test once antibiotics are complete to ensure clearance of infection. Return to the emergency department immediately for any new, worsening, or concerning symptoms. Prescriptions: Sulfamethoxazole/Trimethoprim [Bactrim DS 800-160 mg] 1 each PO BID #20 tablet Polyethylene Glycol 3350 [Miralax] 17 gm PO DAILY #30 packet Is patient prescribed a controlled substance at d/c from ED?: No Referrals: Carole Clark MD [Primary Care Provider] - 1-2 days Time of Disposition: 23:42
[2019-01-23] MEDS ORDERED: MAGNESIUM CITRATE 296 ML BOTTLE PO ONE (23:39)
[2019-01-25 15:19] LABS: C. trachomatis,PCR Negative (Neg,Equiv); Chlamydia trachomatis Source Urine
[2019-01-25 15:31] LABS: N. gonorrhoeae,PCR Negative (Neg,Equiv); Neisseria Source Urine
== END 2019-01-24 | disposition home or self-care (01) ==
LOC: EC 20:12
DX: N39.0 Urinary tract infection, site not specified (principal); R10.84 Generalized abdominal pain; R11.0 Nausea; G40.909 Epilepsy, unspecified, not intractable, without status epilepticus; F17.200 Nicotine dependence, unspecified, uncomplicated; Z79.899 Other long term (current) drug therapy
CPT/HCPCS: 36415; 93005; 80053; 82150; 83605; 83690; 84484; 85025; 81001; 87491; 87591; 87086; 74018; 99284; 96374; 96375; 96361 ×2; J2270; J2405

== ENCOUNTER 2019-03-21 15:55 | Emergency (ER) | payer BC ==
[2019-03-21 16:13] VITALS: TEMP 98.4
[2019-03-21] MEDS ORDERED: KETOROLAC 30 MG/ML 1 ML VIAL IVP STA (16:58)
[2019-03-21] MEDS ORDERED: diphenhydrAMINE 50 MG/ML 1 ML VIAL IVP STA (16:58)
[2019-03-21] MEDS ORDERED: ONDANSETRON 4 MG/2 ML VIAL IVP STA (16:58)
[2019-03-21] MEDS ORDERED: SODIUM CHLORIDE 0.9% 1,000 ML IV STA (16:58)
--- NOTE | 2019-03-21 17:37 | CT ---
EXAMINATION TYPE: CT brain wo con DATE OF EXAM: 03/21/2019 COMPARISON: 10/14/2017 HISTORY: Headache with Left sided facial numbness for 1 week. History of seizures CT DLP: 1115.4 mGycm. Automated Exposure Control for Dose Reduction was Utilized. TECHNIQUE: CT scan of the head is performed without contrast. FINDINGS: Ventricles have normal size. There is no mass effect nor midline shift. There is no sign of intracranial hemorrhage. Calvarium is intact. IMPRESSION: Negative head CT scan. No change.
--- NOTE | 2019-03-21 17:55 | ED ---
General Adult HPI - General Chief complaint: Neuro Symptoms/Deficit Stated complaint: headache x 7 days Time Seen by Provider: 03/21/19 16:43 Source: patient Mode of arrival: ambulatory Limitations: no limitations - History of Present Illness Initial comments: Patient is a 43-year-old male presenting to the emergency Department with complaints of a headache 1 week. Patient states today he also had an episode where he felt like the left side of his face went numb for a few seconds. Patient states that happened twice. Patient has history of seizures. Patient states he does get headaches occasionally, but they typically do not last this long and is not this severe. Patient denies any injuries or trauma to his head. Patient denies any fever, chills, chest pain, shortness of breath, recent illnesses. Patient has been trying Tylenol and Motrin for pain relief without improvement. Patient states the pain is mostly on the left side of his head and extending into the back of his head and down the left side of his neck. Patient denies blurry vision, nausea, vomiting. Patient states the lights do make things worse. Denies recent medication changes. Patient has no other complaints at this time. Upon arrival to the ER, vital signs are stable. - Related Data Home Medications Medication Instructions Recorded Confirmed levETIRAcetam [Keppra] 750 mg PO BID 04/16/18 01/19/19 Tylenol (Unknown Dose) 1 dose PO DIRECTED PRN 01/19/19 01/20/19 Previous Rx's Medication Instructions Recorded Polyethylene Glycol 3350 [Miralax] 17 gm PO DAILY #30 packet 01/23/19 Sulfamethoxazole/Trimethoprim 1 each PO BID #20 tablet 01/23/19 [Bactrim DS 800-160 mg] Allergies Allergy/AdvReac Type Severity Reaction Status Date / Time No Known Allergies Allergy Verified 03/21/19 16:13 Review of Systems ROS Statement: Those systems with pertinent positive or pertinent negative responses have been documented in the HPI. ROS Other: All systems not noted in ROS Statement are negative. Past Medical History Past Medical History: Seizure Disorder Additional Past Medical History / Comment(s): "having left sided abd pain and chest/gas,pain-hiatal hernia seen on CT scan",UTI,Last seizure 10/29/2018 History of Any Multi-Drug Resistant Organisms: None Reported Past Surgical History: Orthopedic Surgery Additional Past Surgical History / Comment(s): R arm/R hand surgery d/t injuries. EGD January 20 Past Anesthesia/Blood Transfusion Reactions: No Reported Reaction Additional Past Anesthesia/Blood Transfusion Reaction / Comment(s): Pt received blood in past without reaction. Past Psychological History: Anxiety, Depression Smoking Status: Current every day smoker Past Alcohol Use History: None Reported Past Drug Use History: None Reported - Past Family History Mother Family Medical History: No Reported History Additional Family Medical History / Comment(s): Mother is healthy. Father History Unknown: Yes Family Medical History: No Reported History Additional Family Medical History / Comment(s): Father is healthy General Exam - General Exam Comments Initial Comments: GENERAL: Well-appearing, well-nourished and in no acute distress. HEAD: Atraumatic, normocephalic. EYES: Pupils equal round and reactive to light, extraocular movements intact, sclera anicteric, conjunctiva are normal. ENT: TMs normal, nares patent, oropharynx clear without exudates. Moist mucous membranes. NECK: Normal range of motion, supple without lymphadenopathy or JVD. LUNGS: Breath sounds clear to auscultation bilaterally and equal. No wheezes rales or rhonchi. HEART: Regular rate and rhythm without murmurs, rubs or gallops. ABDOMEN: Soft, nontender, normoactive bowel sounds. No guarding, no rebound. No masses appreciated. : Deferred EXTREMITIES: Normal range of motion, no pitting or edema. No clubbing or cyanosis. PSYCH: Normal mood, normal affect. SKIN: Warm, Dry, normal turgor, no rashes or lesions noted. Limitations: no limitations Neurological exam: Present: alert, oriented X3, CN II-XII intact, normal gait Expanded Speech: Present: fluid speech Cranial nerves: EOM's Intact: Normal, Tongue Deviation: Normal, Facial Sensation: Normal Cerebellar function: Finger to Nose: Normal, Romberg: Normal Upper motor neuron: Pronator Drift: Normal Sensory exam: Upper Extremity Light Touch: Normal, Lower Extremity Light Touch: Normal Motor strength exam: RUE: 5, LUE: 5, RLE: 5, LLE: 5 Eye Response: (4) open spontaneously Motor Response: (6) obeys commands Verbal Response: (5) oriented [place] Total: 15 Course Vital Signs 03/21/19 03/21/19 16:10 18:28 Temperature 98.4 F Pulse Rate 72 80 Respiratory 18 16 Rate Blood Pressure 108/68 119/71 O2 Sat by Pulse 100 99 Oximetry Medical Decision Making - Medical Decision Making Patient is a 43-year-old male presenting with a headache 1 week. Patient does have history of seizures. Patient states he does get headaches occasionally but they typically are not this severe and last this long. Patient has been trying Motrin and Tylenol without relief. Patient also states he had 2 episodes of feeling like the left side of his face was going numb. Patient states his only lasted for a few seconds each time. Patient's exam is unremarkable today. Patient has full strength upper and lower extremities as well as normal sensations. Given patient's history and description of headache a computed tomography scan was performed. There is no mass effect or midline shift. There is no sign of intracranial hemorrhage. Patient was given Toradol, Benadryl, Zofran and reports improvement in symptoms. States his headache is 1/10. Patient is requesting to be discharged. Patient's vital signs remained stable. Patient is stable for discharge at this time. Strict return parameters were discussed with the patient he verbalizes understanding. Case discussed with Dr. Watt. Disposition Clinical Impression: Migraine Disposition: HOME SELF-CARE Condition: Stable Additional Instructions: Please return to the Emergency Department if symptoms worsen or any other concerns. Follow-up with PCP if symptoms persist. Is patient prescribed a controlled substance at d/c from ED?: No Referrals: Carole Clark MD [Primary Care Provider] - 1-2 days
[2019-03-21 18:29] VITALS: BP 119/71; PULSE 80; RESP 16
== END 2019-03-21 18:30 | disposition home or self-care (01) ==
LOC: EC 15:55
DX: G43.909 Migraine, unspecified, not intractable, without status migrainosus (principal); G40.909 Epilepsy, unspecified, not intractable, without status epilepticus; F17.200 Nicotine dependence, unspecified, uncomplicated; Z79.899 Other long term (current) drug therapy
CPT/HCPCS: 70450; 99284; 96374; 96375 ×2; 96361; J1200; J2405; J1885

== ENCOUNTER 2020-02-17 07:53 | Emergency (ER) | payer BC, OTHER ==
[2020-02-17 08:04] VITALS: TEMP 98.3
[2020-02-17] MEDS ORDERED: SODIUM CHLORIDE 0.9% 500 ML 500 ML IV STA (08:39)
[2020-02-17] MEDS ORDERED: LORazepam 2 MG/ML INJ IV STA (08:39)
--- NOTE | 2020-02-17 09:01 | ED ---
General Adult HPI - General Chief complaint: Seizure Stated complaint: seizure Time Seen by Provider: 02/17/20 08:14 Source: patient Mode of arrival: wheelchair Limitations: no limitations - History of Present Illness Initial comments: Patient is a 44-year-old male presenting to the emergency Department with complaints of "feeling like he may have a seizure." He states he doesn't a history of seizures and is getting concerned as he feels like he may have one. He states that his last seizure was over 6 months ago. She currently takes Keppra. He states he does not see a neurologist. He states he's been taking his medication as prescribed. He does admit to some mild chest tightness. He denies any abdominal pain, shortness of breath, nausea, vomiting. He denies any recent trauma or falls. He denies recent fever, chills, cough, shortness of breath. He states he has been under a lot of stress lately with his kids and other things, he did not elaborate. He does admit to being a smoker, admits to drinking alcohol yesterday, no other drug use. He has no further complaints. Upon arrival to the ER, patient's vital signs are stable. - Related Data Home Medications Medication Instructions Recorded Confirmed levETIRAcetam [Keppra] 750 mg PO BID 04/16/18 01/19/19 Tylenol (Unknown Dose) 1 dose PO DIRECTED PRN 01/19/19 01/20/19 Previous Rx's Medication Instructions Recorded Sulfamethoxazole/Trimethoprim 1 each PO BID #20 tablet 01/23/19 [Bactrim DS 800-160 mg] polyethylene glycoL 3350 [Miralax] 17 gm PO DAILY #30 packet 01/23/19 Cephalexin [Keflex] 500 mg PO Q6HR 7 Days #28 cap 02/17/20 Allergies Allergy/AdvReac Type Severity Reaction Status Date / Time No Known Allergies Allergy Verified 02/17/20 08:03 Review of Systems ROS Statement: Those systems with pertinent positive or pertinent negative responses have been documented in the HPI. ROS Other: All systems not noted in ROS Statement are negative. Past Medical History Past Medical History: Seizure Disorder Additional Past Medical History / Comment(s): -hiatal hernia seen on CT scan",UTI, History of Any Multi-Drug Resistant Organisms: None Reported Past Surgical History: Orthopedic Surgery Additional Past Surgical History / Comment(s): R arm/R hand surgery d/t injuries. EGD January 20 Past Anesthesia/Blood Transfusion Reactions: No Reported Reaction Additional Past Anesthesia/Blood Transfusion Reaction / Comment(s): Pt received blood in past without reaction. Past Psychological History: Anxiety, Depression Smoking Status: Current every day smoker Past Alcohol Use History: None Reported Past Drug Use History: None Reported - Past Family History Mother Family Medical History: No Reported History Additional Family Medical History / Comment(s): Mother is healthy. Father History Unknown: Yes Family Medical History: No Reported History Additional Family Medical History / Comment(s): Father is healthy General Exam - General Exam Comments Initial Comments: GENERAL: Patient is well-developed and well-nourished. Patient is nontoxic and in no acute distress. Patient appears very anxious. HEAD: Atraumatic, normocephalic. EYES: Pupils equal round and reactive to light, extraocular movements intact, sclera anicteric, conjunctiva are normal. Eyelids were unremarkable. ENT: TMs normal, nares patent, oropharynx clear without exudates. Moist mucous membranes. NECK: Normal range of motion, supple without lymphadenopathy or JVD. LUNGS: Unlabored respirations. Breath sounds clear to auscultation bilaterally and equal. No wheezes rales or rhonchi. HEART: Regular rate and rhythm without murmurs, rubs or gallops. ABDOMEN: Soft, nontender, normoactive bowel sounds. No guarding, no rebound. No masses appreciated. : Deferred MUSCULOSKELETAL: Normal extremities with adequate strength and normal range of motion, no pitting or edema. No clubbing or cyanosis. NEUROLOGICAL: Patient is alert and oriented x 3. Motor and sensory are also intact. Cranial nerves II through XII grossly intact. Symmetrical smile. Normal speech, normal gait. PSYCH: Patient appears anxious. SKIN: Warm, Dry, normal turgor, no rashes or lesions noted. Limitations: no limitations Course Vital Signs 02/17/20 02/17/20 02/17/20 08:01 10:14 11:04 Temperature 98.3 F Pulse Rate 107 H 72 87 Respiratory 18 14 14 Rate Blood Pressure 114/67 113/71 114/76 O2 Sat by Pulse 100 98 98 Oximetry EKG Findings - EKG Comments: EKG Findings:: Normal sinus rhythm with sinus arrhythmia, normal ECG, no signs of acute ischemia. Ventricular rate 86, NJ interval 156, QT 368. Medical Decision Making - Medical Decision Making Patient is a 44-year-old male here with history of seizures, presenting with a feeling like he is going to have one. He admits to some mild chest tightness. The patient appears very anxious on exam. No other acute findings. His vital signs are stable. EKG shows no acute process. Labwork reveals a normal white count, troponin is normal, no other abnormalities. Urine drug screen is negative, urine was positive for 40 WBCs as well as Trichomonas. Patient denies having any urinary symptoms. Patient was given some fluids as well as Ativan. He states he is feeling improvement. I discussed these findings with the patient. Patient will be treated with 2 g of Flagyl in the ER for the Trichomonas as well as started on Keflex for UTI. Patient needs to follow up with his primary care doctor as well as neurologist. Patient states he lives in [place] and will get a neurologist in that area. He is stable for discharge. Patient's is with him now and will be driving. Return parameters were discussed with the patient he verbalizes understanding. Case discussed with Dr. Baker. - Lab Data Result diagrams: 02/17/20 08:56 02/17/20 08:56 Lab Results 02/17/20 02/17/20 02/17/20 Range/Units 08:56 08:56 08:56 WBC 4.0 (3.8-10.6) k/uL RBC 5.33 (4.30-5.90) m/uL Hgb 14.2 (13.0-17.5) gm/dL Hct 45.2 (39.0-53.0) % MCV 84.8 (80.0-100.0) fL MCH 26.5 (25.0-35.0) pg MCHC 31.3 (31.0-37.0) g/dL RDW 13.7 (11.5-15.5) % Plt Count 254 (150-450) k/uL Neutrophils % 45 % Lymphocytes % 42 % Monocytes % 7 % Eosinophils % 3 % Basophils % 0 % Neutrophils # 1.8 (1.3-7.7) k/uL Lymphocytes # 1.7 (1.0-4.8) k/uL Monocytes # 0.3 (0-1.0) k/uL Eosinophils # 0.1 (0-0.7) k/uL Basophils # 0.0 (0-0.2) k/uL Sodium 141 (137-145) mmol/L Potassium 4.0 (3.5-5.1) mmol/L Chloride 109 H (98-107) mmol/L Carbon Dioxide 25 (22-30) mmol/L Anion Gap 7 mmol/L BUN 15 (9-20) mg/dL Creatinine 0.82 (0.66-1.25) mg/dL Est GFR (CKD-EPI)AfAm >90 (>60 ml/min/1.73 sqM) Est GFR (CKD-EPI)NonAf >90 (>60 ml/min/1.73 sqM) Glucose 108 H (74-99) mg/dL Calcium 9.0 (8.4-10.2) mg/dL Total Bilirubin 0.3 (0.2-1.3) mg/dL AST 28 (17-59) U/L ALT 23 (4-49) U/L Alkaline Phosphatase 79 (38-126) U/L Troponin I (0.000-0.034) ng/mL Total Protein 7.1 (6.3-8.2) g/dL Albumin 4.4 (3.5-5.0) g/dL Urine Color Urine Appearance (Clear) Urine pH (5.0-8.0) Ur Specific [place] (1.001-1.035) Urine Protein (Negative) Urine Glucose (UA) (Negative) Urine Ketones (Negative) Urine Blood (Negative) Urine Nitrite (Negative) Urine Bilirubin (Negative) Urine Urobilinogen (<2.0) mg/dL Ur Leukocyte Esterase (Negative) Urine RBC (0-5) /hpf Urine WBC (0-5) /hpf Ur Squamous Epith Cells (0-4) /hpf Amorphous Sediment (None) /hpf Urine Mucus (None) /hpf Urine Trichomonas (None) /hpf Urine Opiates Screen Not Detected (NotDetected) Ur Oxycodone Screen Not Detected (NotDetected) Urine Methadone Screen Not Detected (NotDetected) Ur Propoxyphene Screen Not Detected (NotDetected) Ur Barbiturates Screen Not Detected (NotDetected) U Tricyclic Antidepress Not Detected (NotDetected) Ur Phencyclidine Scrn Not Detected (NotDetected) Ur Amphetamines Screen Not Detected (NotDetected) U Methamphetamines Scrn Not Detected (NotDetected) U Benzodiazepines Scrn Not Detected (NotDetected) Urine Cocaine Screen Not Detected (NotDetected) U Marijuana (THC) Screen Not Detected (NotDetected) 02/17/20 02/17/20 Range/Units 08:56 08:56 WBC (3.8-10.6) k/uL RBC (4.30-5.90) m/uL Hgb (13.0-17.5) gm/dL Hct (39.0-53.0) % MCV (80.0-100.0) fL MCH (25.0-35.0) pg MCHC (31.0-37.0) g/dL RDW (11.5-15.5) % Plt Count (150-450) k/uL Neutrophils % % Lymphocytes % % Monocytes % % Eosinophils % % Basophils % % Neutrophils # (1.3-7.7) k/uL Lymphocytes # (1.0-4.8) k/uL Monocytes # (0-1.0) k/uL Eosinophils # (0-0.7) k/uL Basophils # (0-0.2) k/uL Sodium (137-145) mmol/L Potassium (3.5-5.1) mmol/L Chloride (98-107) mmol/L Carbon Dioxide (22-30) mmol/L Anion Gap mmol/L BUN (9-20) mg/dL Creatinine (0.66-1.25) mg/dL Est GFR (CKD-EPI)AfAm (>60 ml/min/1.73 sqM) Est GFR (CKD-EPI)NonAf (>60 ml/min/1.73 sqM) Glucose (74-99) mg/dL Calcium (8.4-10.2) mg/dL Total Bilirubin (0.2-1.3) mg/dL AST (17-59) U/L ALT (4-49) U/L Alkaline Phosphatase (38-126) U/L Troponin I <0.012 (0.000-0.034) ng/mL Total Protein (6.3-8.2) g/dL Albumin (3.5-5.0) g/dL Urine Color Yellow Urine Appearance Clear (Clear) Urine pH 6.5 (5.0-8.0) Ur Specific [place] 1.030 (1.001-1.035) Urine Protein 1+ H (Negative) Urine Glucose (UA) Negative (Negative) Urine Ketones Negative (Negative) Urine Blood Negative (Negative) Urine Nitrite Negative (Negative) Urine Bilirubin Negative (Negative) Urine Urobilinogen <2.0 (<2.0) mg/dL Ur Leukocyte Esterase Large H (Negative) Urine RBC 3 (0-5) /hpf Urine WBC 40 H (0-5) /hpf Ur Squamous Epith Cells 2 (0-4) /hpf Amorphous Sediment Rare H (None) /hpf Urine Mucus Few H (None) /hpf Urine Trichomonas Rare H (None) /hpf Urine Opiates Screen (NotDetected) Ur Oxycodone Screen (NotDetected) Urine Methadone Screen (NotDetected) Ur Propoxyphene Screen (NotDetected) Ur Barbiturates Screen (NotDetected) U Tricyclic Antidepress (NotDetected) Ur Phencyclidine Scrn (NotDetected) Ur Amphetamines Screen (NotDetected) U Methamphetamines Scrn (NotDetected) U Benzodiazepines Scrn (NotDetected) Urine Cocaine Screen (NotDetected) U Marijuana (THC) Screen (NotDetected) Disposition Clinical Impression: UTI (urinary tract infection), Trichomonas infection, Anxiety Disposition: HOME SELF-CARE Condition: Stable Instructions (If sedation given, give patient instructions): Trichomoniasis (ED), Urinary Tract Infection in Men (ED) Additional Instructions: Please return to the Emergency Department if symptoms worsen or any other concerns. Do not drink alcohol for at least 48 hours secondary to recent medication. Take antibiotic as prescribed. Follow-up with neurologist as discussed, also follow up with PCP. Prescriptions: Cephalexin [Keflex] 500 mg PO Q6HR 7 Days #28 cap Is patient prescribed a controlled substance at d/c from ED?: No Referrals: Carole Clark MD [Primary Care Provider] - 1-2 days
[2020-02-17 09:05] LABS: Basophils % (A) 0 %; Eosinophils # (A) 0.1 k/uL (0-0.7); Eosinophils % (A) 3 %; HCT 45.2 % (39.0-53.0); HGB 14.2 gm/dL (13.0-17.5); Lymphocytes # (A) 1.7 k/uL (1.0-4.8); Lymphocytes % (A) 42 %; MCH 26.5 pg (25.0-35.0); MCHC 31.3 g/dL (31.0-37.0); MCV 84.8 fL (80.0-100.0); Mean Platelet Volume 7.5; Monocytes # (A) 0.3 k/uL (0-1.0); Monocytes % (A) 7 %; Neutrophils # (A) 1.8 k/uL (1.3-7.7); Neutrophils % (A) 45 %; Platelet Count 254 k/uL (150-450); RBC 5.33 m/uL (4.30-5.90); RDW 13.7 % (11.5-15.5)
[2020-02-17 09:15] LABS: Amphetamine Screen,Urine Not Detected (NotDetected); Barbiturate Screen,Urine Not Detected (NotDetected); Benzodiazepines Screen,Urine Not Detected (NotDetected); Cocaine Screen,Urine Not Detected (NotDetected); Methadone Screen, Urine Not Detected (NotDetected); Opiate Screen,Urine Not Detected (NotDetected); Oxycodone Screen, Urine Not Detected (NotDetected); Phencyclidine Screen,Urine Not Detected (NotDetected); Tricyclic Antidepressant,Urine Not Detected (NotDetected); Urn Cannabinoid Scrn Not Detected (NotDetected)
[2020-02-17 09:17] LABS: ALT 23 U/L (4-49); AST 28 U/L (17-59); African American GFR (CKD) >90 (>60 ml/min/1.73 sqM); Albumin 4.4 g/dL (3.5-5.0); Alkaline Phosphatase 79 U/L (38-126); Anion Gap 7 mmol/L; Blood Urea Nitrogen 15 mg/dL (9-20); Carbon Dioxide 25 mmol/L (22-30); Chloride 109 mmol/L (98-107); Glucose 108 mg/dL (74-99); Non-African American GFR(CKD) >90 (>60 ml/min/1.73 sqM); Sodium 141 mmol/L (137-145); Total Bilirubin 0.3 mg/dL (0.2-1.3); Total Protein 7.1 g/dL (6.3-8.2)
[2020-02-17 09:24] LABS: Amorphous Sediment,Urine Rare /hpf; Appearance,Urine Clear (Clear); Bilirubin,Urine Negative (Negative); Blood,Urine Negative (Negative); Color,Urine Yellow; Glucose,Urine (UA) Negative (Negative); Ketones,Urine Negative (Negative); Leukocyte Esterase,Urine Large (Negative); Mucus,Urine Few /hpf; Nitrite,Urine Negative (Negative); PH, Urine 6.5 (5.0-8.0); Protein,Urine 1+ (Negative); RBC,Urine 3 /hpf (0-5); Squamous Epithelial Cell,Urine 2 /hpf (0-4); Trichomonas,Urine Rare /hpf; Urobilinogen,Urine <2.0 mg/dL (<2.0); WBC,Urine 40 /hpf (0-5)
[2020-02-17 10:15] VITALS: RESP 14
[2020-02-17] MEDS ORDERED: metroNIDAZOLE 500 MG TAB PO STA (10:27)
[2020-02-17 11:05] VITALS: BP 114/76; PULSE 87
== END 2020-02-17 11:05 | disposition home or self-care (01) ==
LOC: EC 07:53
DX: N39.0 Urinary tract infection, site not specified (principal); A59.9 Trichomoniasis, unspecified; F41.9 Anxiety disorder, unspecified; R07.89 Other chest pain; G40.909 Epilepsy, unspecified, not intractable, without status epilepticus; F17.200 Nicotine dependence, unspecified, uncomplicated; Z79.899 Other long term (current) drug therapy
CPT/HCPCS: 36415; 93005; 80053; 84484; 85025; 81001; 80306; 99284; 96374; 96361; J2060

== ENCOUNTER 2022-01-30 07:46 | Day surgery (SDC) | payer OTHER ==
[2022-01-29 09:13] VITALS: BMI 25.9
--- NOTE | 2022-01-30 07:24 | P.GSHP ---
History of Present Illness H&P Date: 01/30/22 CHIEF COMPLAINT: Colon screen HISTORY OF PRESENT ILLNESS: The patient is a 46-year-old male who presents for colon screen. Lower endoscopy was offered for further evaluation and management. PAST MEDICAL HISTORY: Please see list. PAST SURGICAL HISTORY: Please see list. MEDICATIONS: Please see list. ALLERGIES: Please see list. SOCIAL HISTORY: No illicit drug use FAMILY HISTORY: No reports of Crohn disease or ulcerative colitis. REVIEW OF ORGAN SYSTEMS: CONSTITUTIONAL: No reports of fevers or chills. PHYSICAL EXAM: VITAL SIGNS: Stable GENERAL: Well-developed pleasant in no acute distress. HEENT: No scleral icterus. Extraocular movements grossly intact. Moist buccal mucosa. NECK: Supple without lymphadenopathy. CHEST: Unlabored respirations. Equal bilateral excursions. CARDIOVASCULAR: Regular rate and rhythm. Distal 2+ pulses. ABDOMEN: Soft, nontender, nondistended. MUSCULOSKELETAL: No clubbing, cyanosis, or edema. ASSESSMENT: 1. Colon screen. PLAN: 1. Recommend proceeding with a lower endoscopy Past Medical History Past Medical History: Seizure Disorder Additional Past Medical History / Comment(s): -hiatal hernia seen on CT scan",. LAST SEIZURE ABOUT 18 MONTHS AGO History of Any Multi-Drug Resistant Organisms: None Reported Past Surgical History: Orthopedic Surgery Additional Past Surgical History / Comment(s): R arm/R hand surgery d/t injuries. EGD January 20 Past Anesthesia/Blood Transfusion Reactions: No Reported Reaction Additional Past Anesthesia/Blood Transfusion Reaction / Comment(s): Pt received blood in past without reaction. Smoking Status: Current every day smoker - Past Family History Mother Family Medical History: No Reported History Additional Family Medical History / Comment(s): Mother is healthy. Father History Unknown: Yes Family Medical History: No Reported History Additional Family Medical History / Comment(s): Father is healthy Medications and Allergies Home Medications Medication Instructions Recorded Confirmed Type levETIRAcetam [Keppra] 750 mg PO BID 04/16/18 01/29/22 History Allergies Allergy/AdvReac Type Severity Reaction Status Date / Time No Known Allergies Allergy Verified 01/29/22 09:04
[~2022-01-30 07:46] MED LIST: LACTATED RINGERS 1,000 ML IV SCH
[2022-01-30 08:21] VITALS: TEMP 97.8
[2022-01-30] MEDS ORDERED: LACTATED RINGERS 1,000 ML IV ONE (08:21)
[2022-01-30] MEDS ORDERED: LIDOCAINE 2% INJ 20 MG/ML (2 ML VIAL) ONE (08:26)
[2022-01-30] MEDS ORDERED: GLYCOPYRROLATE 0.2 MG/ML 2 ML VIAL ONE (08:26)
[2022-01-30] MEDS ORDERED: PROPOFOL 10 MG/ML 20 ML VIAL IV ONE (08:26)
--- NOTE | 2022-01-30 08:52 | P.PCN ---
Date of Procedure: 01/30/22 Description of Procedure: PREOPERATIVE DIAGNOSIS: Colonoscopy screening. POSTOPERATIVE DIAGNOSIS: Colonoscopy screening. OPERATION: Colonoscopy to the cecum, ileocecal valve and appendiceal orifice. SURGEON: Belgica Hernandez MD. ANESTHESIA: MAC. INDICATIONS: The patient is a 46-year-old male who presents for colonoscopy screening. Benefits and risks were described and informed consent was obtained. DESCRIPTION OF PROCEDURE: The patient had undergone Sutab prep. The patient had been brought into the operating room and laid in the left lateral decubitus position. After adequate intravenous sedation, the rectum was examined with 2% lidocaine jelly. No external hemorrhoids were encountered. The rectal tone was within normal limits. No lesions were palpated in the rectal vault. An Olympus colonoscope was advanced until the cecum, ileocecal valve and appendiceal orifice were clearly viewed. The prep was excellent. No scattered diverticulosis was encountered. No colonic polyps were found. No evidence of focal colitis was found. Retroflexion of the scope demonstrated grade 1 internal hemorrhoids without active bleeding or inflammation. The colon was desufflated. The patient had tolerated the procedure well. Withdrawal time was over 6 minutes. FINDINGS: Aronchick preparation quality scale 1 (1-5) Internal hemorrhoids, grade 1 No external prolapsed hemorrhoids. No arteriovenous malformations. No adenomatous polyps. No focal colitis. RECOMMENDATIONS: Lower endoscopy in 2031 Plan - Discharge Summary Discharge Rx Participant: No New Discharge Prescriptions: Continue levETIRAcetam [Keppra] 750 mg PO BID Discharge Medication List levETIRAcetam [Keppra] 750 mg PO BID 04/16/18 [History] Follow up Appointment(s)/Referral(s): Belgica Hernandez MD [STAFF PHYSICIAN] - As Needed Patient Instructions/Handouts: *Surgery [facility] - (Anesthesia) Endoscopy Discharge Instructions, Colonoscopy (DC) Activity/Diet/Wound Care/Special Instructions: Repeat colonoscopy in 2031 Discharge Disposition: HOME SELF-CARE
[2022-01-30 09:15] VITALS: BP 98/58; PULSE 87; RESP 16
== END 2022-01-30 09:54 | disposition home or self-care (01) ==
LOC: ORWHC2ENDO 07:46
PROVIDERS: ATTEND Surgery Plastic and Reconstructive Surgery
DX: Z12.11 Encounter for screening for malignant neoplasm of colon (principal); K64.0 First degree hemorrhoids; Z79.899 Other long term (current) drug therapy; F41.9 Anxiety disorder, unspecified; F32.A Depression, unspecified; R56.9 Unspecified convulsions; F17.200 Nicotine dependence, unspecified, uncomplicated
CPT/HCPCS: 45378; J2704; J2001

== ENCOUNTER 2022-07-09 00:15 | Observation (INO) | payer OTHER ==
[2022-07-09 00:32] VITALS: RESP 18
--- NOTE | 2022-07-09 02:35 | XR ---
EXAMINATION TYPE: XR hand complete LT DATE OF EXAM: 07/09/2022 COMPARISON: NONE HISTORY: Pain TECHNIQUE: 3 views FINDINGS: The metacarpals are intact. There is some soft tissue swelling of the little finger. Joint spaces are normal. No fracture seen. IMPRESSION: Soft tissue swelling of the little finger. No fracture. No sign of osteomyelitis.
[2022-07-09] MEDS ORDERED: SODIUM CHLORIDE 0.9% 1,000 ML IV STA (03:20)
[2022-07-09] MEDS ORDERED: VANCOMYCIN IV PER PHARMACY 1 EACH MISC MISCELLANE PRN (03:20)
--- NOTE | 2022-07-09 03:28 | ED ---
Recheck HPI - General Chief Complaint: Extremity Injury, Upper Stated Complaint: LT hand swelling Time Seen by Provider: 07/09/22 02:38 Source: patient, RN notes reviewed, old records reviewed Mode of arrival: ambulatory Limitations: no limitations - History of Present Illness Initial Comments: This is a 47-year-old male to the emergency department for evaluation patient presents today for evaluation of severe left pinky pain. Swelling edema erythema. Decreased range of motion. Patient has history of an infection recent incision and drainage of his finger twice. Is also switched antibiotic twice with symptoms worsening swelling worsening pain worsening. MD Complaint: wound re-check, needs IV antibiotics -: hour(s) Returns Today for: needs IV antibiotics, persistent/worsening pain related to initial visit Symptoms Since Prior Visit: worsening pain, worsening swelling, worsening redness Context: planned re-check Associated Symptoms: none Treatments Prior to Arrival: Given Antibiotics on - Related Data Home Medications Medication Instructions Recorded Confirmed levETIRAcetam [Keppra] 750 mg PO BID 04/16/18 01/29/22 Allergies Allergy/AdvReac Type Severity Reaction Status Date / Time No Known Allergies Allergy Verified 01/29/22 09:04 Review of Systems ROS Statement: Those systems with pertinent positive or pertinent negative responses have been documented in the HPI. ROS Other: All systems not noted in ROS Statement are negative. Past Medical History Past Medical History: Seizure Disorder Additional Past Medical History / Comment(s): -hiatal hernia seen on CT scan",. LAST SEIZURE ABOUT 18 MONTHS AGO History of Any Multi-Drug Resistant Organisms: None Reported Past Surgical History: Orthopedic Surgery Additional Past Surgical History / Comment(s): R arm/R hand surgery d/t injuries. EGD January 20 Past Anesthesia/Blood Transfusion Reactions: No Reported Reaction Additional Past Anesthesia/Blood Transfusion Reaction / Comment(s): Pt received blood in past without reaction. Past Psychological History: Anxiety, Depression Smoking Status: Current every day smoker Past Alcohol Use History: None Reported Past Drug Use History: None Reported - Past Family History Mother Family Medical History: No Reported History Additional Family Medical History / Comment(s): Mother is healthy. Father History Unknown: Yes Family Medical History: No Reported History Additional Family Medical History / Comment(s): Father is healthy General Exam - General Exam Comments Initial Comments: Patient does have significant swelling and edema erythema and tenderness into palmar aspect of left pinky finger Limitations: no limitations General appearance: alert, in no apparent distress Head exam: Present: atraumatic, normocephalic, normal inspection Eye exam: Present: normal appearance, PERRL, EOMI. Absent: scleral icterus, conjunctival injection, periorbital swelling ENT exam: Present: normal exam, mucous membranes moist Neck exam: Present: normal inspection. Absent: tenderness, meningismus, lymphadenopathy Respiratory exam: Present: normal lung sounds bilaterally. Absent: respiratory distress, wheezes, rales, rhonchi, stridor Cardiovascular Exam: Present: regular rate, normal rhythm, normal heart sounds. Absent: systolic murmur, diastolic murmur, rubs, gallop, clicks GI/Abdominal exam: Present: soft, normal bowel sounds. Absent: distended, tenderness, guarding, rebound, rigid Extremities exam: Present: normal inspection, full ROM, normal capillary refill. Absent: tenderness, pedal edema, joint swelling, calf tenderness Back exam: Present: normal inspection Neurological exam: Present: alert, oriented X3, CN II-XII intact Psychiatric exam: Present: normal affect, normal mood Skin exam: Present: warm, dry, intact, normal color. Absent: rash Course Vital Signs 07/09/22 00:30 Temperature 97.7 F Pulse Rate 89 Respiratory 18 Rate Blood Pressure 137/80 O2 Sat by Pulse 99 Oximetry - Reevaluation(s) Reevaluation #1: 07/09/22 03:25 Medical record is reviewed Reevaluation #2: 07/09/22 03:25 No change in symptoms here in the ER Reevaluation #3: 07/09/22 03:25 Patient informed of results and questions are answered Reevaluation #4: 07/09/22 03:25 Was pt. sent in by a medical professional or institution? @ -no Did you speak to anyone other than the patient for history? @ -no Did you review nursing and triage notes? @ -agree Were old charts reviewed? @ -no Differential Diagnosis? @ -abscess,cellulitis,flexor teno EKG interpreted by me (3pts min.)? @ -[none] X-rays interpreted by me (1pt min.)? @ -yes CT interpreted by me (1pt min.)? @ -[none] U/S interpreted by me (1pt. min.)? @ -[none] What testing was considered but not performed? (CT, X-rays, U/S, labs)? Why? @ no What meds were considered but not given? Why? @ -non Did you discuss the management of the patient with other professionals? @ o] Did you reconcile home meds? @ -[none] Was smoking cessation discussed for >3mins.? @ -[none] Was critical care preformed (if so, how long)? @ -[none] Were there social determinants of health that impacted care today? How? (Homelessness, low income, unemployed, alcoholism, drug addiction, transportation, low edu. Level, literacy, decrease access to med. care, usp, rehab)? @ -no Was there de-escalation of care discussed even if they declined? (Discuss DNR or withdrawal of care, Hospice)? @ -no What co-morbidities impacted this encounter? (DM, HTN, Smoking, COPD, CAD, Cancer, CVA, Hep., AIDS, mental health diagnosis, sleep apnea, morbid obesity)? @ -no Was patient admitted / discharged? @ -admit Undiagnosed new problem with uncertain prognosis? @ -no Drug Therapy requiring intensive monitoring for toxicity (Heparin, Nitro, Insulin, Cardizem)? @ -[none] Were any procedures done? @ -[none] Diagnosis/symptom? @ -Left Little Finger Cellulitis Abscess ro Flexor Tenosynovitis Acute, or Chronic, or Acute on Chronic? @ -acute Uncomplicated (without systemic symptoms) or Complicated (systemic symptoms)? @ -uncomplicated Side effects of treatment? @ -[none] Exacerbation, Progression, or Severe Exacerbation] @ -[no] Poses a threat to life or bodily function? @ -[no] Medical Decision Making - Medical Decision Making 47 male who will be admitted for consult by orthopedics for pain every finger fraction. Failure of outpatient treatment - Radiology Data Radiology results: report reviewed (X-ray hand is negative for acute disease), image reviewed Disposition Clinical Impression: Abscess of left little finger, Cellulitis of left little finger, Failure of outpatient treatment Disposition: ADMITTED IP TO THIS [facility] Condition: Good Is patient prescribed a controlled substance at d/c from ED?: No Referrals: None,Stated [Primary Care Provider] - 1-2 days Time of Disposition: 03:30
--- NOTE | 2022-07-09 03:59 | P.HPIM ---
History of Present Illness H&P Date: 07/09/22 Patient is a 47-year-old male with a PMH of seizure disorder who presented to the emergency room with complaints of left hand pain and swelling. The patient reports he has a long-standing history of biting his nails which has led to multiple infections of his fingers requiring drainage. States that his left fifth finger started to swell of roughly 1 week ago, for which he went to [facility] emergency room this past where he was started on Keflex and was discharged home. The patient was again seen there on Thursday and had the left fifth digit drained and was switched to Bactrim. Patient states he has been taking Bactrim since yesterday with no improvement in his pain or swelling. Reports left fifth digit and left hand pain without extension into the arm. Denied fever or chills. Denied chest pain or shortness of breath. Left hand x- ray in the emergency room revealed soft tissue swelling of the little finger with no signs of osteomyelitis or fracture. Case was discussed in detail with the ED physician. Review of systems: Pertinent positives and negatives as discussed in HPI, a complete review of systems was performed and all other systems are negative. Physical examination: General: non toxic, no distress, appears at stated age, normal weight Derm: Left fifth digit mild swelling with tenderness involving the digit and the left medial aspect of hand, normal range of motion warm Head: atraumatic, normocephalic, symmetric Eyes: EOMI, no lid lag, anicteric sclera, pupils equal round reactive to light ENT: Nose and ears atraumatic Neck: No cervical lymphadenopathy, trachea midline, supple Mouth: no lip lesion, mucus membranes moist Cardiovascular: S1S2 reg, no murmur, positive dorsalis pedis pulse bilateral, no edema Lungs: CTA bilateral, no rhonchi, no rales, no accessory muscle use Abdominal: soft, nontender to palpation, no guarding Ext: muscle strength 5 out of 5 in all 4 extremities grossly, no gross muscle atrophy, no contractures, Neuro: CN II-XI grossly intact, no gross focal neuro deficits Psych: Alert, oriented, appropriate affect Assessment/plan Left hand cellulitis, failed outpatient treatment -Continue with vancomycin and ceftriaxone for now -Hand surgery consulted -C/w IVFs Chronic conditions: Seizure disorder -Continue home meds DVT prophylaxis -Lovenox The patient is admitted with an anticipated less than 2 midnight stay for evaluation of L hand cellulitis CODE STATUS: Full Code Discussed with: Patient Anticipated discharge date: in am Anticipated discharge place: Home Past Medical History Past Medical History: Seizure Disorder Additional Past Medical History / Comment(s): -hiatal hernia seen on CT scan",. LAST SEIZURE ABOUT 18 MONTHS AGO History of Any Multi-Drug Resistant Organisms: None Reported Past Surgical History: Orthopedic Surgery Additional Past Surgical History / Comment(s): R arm/R hand surgery d/t injuries. EGD January 20 Past Anesthesia/Blood Transfusion Reactions: No Reported Reaction Additional Past Anesthesia/Blood Transfusion Reaction / Comment(s): Pt received blood in past without reaction. Past Psychological History: Anxiety, Depression Smoking Status: Current every day smoker Past Alcohol Use History: None Reported Past Drug Use History: None Reported - Past Family History Mother Family Medical History: No Reported History Additional Family Medical History / Comment(s): Mother is healthy. Father History Unknown: Yes Family Medical History: No Reported History Additional Family Medical History / Comment(s): Father is healthy Medications and Allergies Home Medications Medication Instructions Recorded Confirmed Type levETIRAcetam [Keppra] 750 mg PO BID 04/16/18 01/29/22 History Allergies Allergy/AdvReac Type Severity Reaction Status Date / Time No Known Allergies Allergy Verified 01/29/22 09:04 Physical Exam Vitals: Vital Signs Temp Pulse Resp BP Pulse Ox 07/09/22 00:30 97.7 F 89 18 137/80 99 Intake and Output 07/08/22 07/08/22 07/09/22 14:59 22:59 06:59 Other: Weight 79.333 kg
[2022-07-09] MEDS ORDERED: VANCOMYCIN 1,250 MG in SODIUM CHLORIDE 0.9% 250 ML IVPB ONE (04:30)
[2022-07-09 04:33] LABS: Basophils % (A) 0 %; Eosinophils # (A) 0.1 k/uL (0-0.7); Eosinophils % (A) 2 %; HCT 41.9 % (39.0-53.0); HGB 13.6 gm/dL (13.0-17.5); Lymphocytes # (A) 2.1 k/uL (1.0-4.8); Lymphocytes % (A) 35 %; MCH 27.6 pg (25.0-35.0); MCHC 32.5 g/dL (31.0-37.0); MCV 84.8 fL (80.0-100.0); Mean Platelet Volume 8.2; Monocytes # (A) 0.5 k/uL (0-1.0); Monocytes % (A) 8 %; Neutrophils # (A) 3.1 k/uL (1.3-7.7); Neutrophils % (A) 52 %; Platelet Count 280 k/uL (150-450); RBC 4.94 m/uL (4.30-5.90); RDW 13.5 % (11.5-15.5); WBC 5.9 k/uL (3.8-10.6)
[2022-07-09 04:47] LABS: ALT 17 U/L (4-49); AST 24 U/L (17-59); African American GFR (CKD) >90 (>60 ml/min/1.73 sqM); Albumin 4.2 g/dL (3.5-5.0); Alkaline Phosphatase 85 U/L (38-126); Anion Gap 7 mmol/L; Blood Urea Nitrogen 14 mg/dL (9-20); C Reactive Protein 1.8 mg/dL (<1.0); Calcium 9.1 mg/dL (8.4-10.2); Carbon Dioxide 23 mmol/L (22-30); Chloride 109 mmol/L (98-107); Glucose 90 mg/dL (74-99); Magnesium 2.1 mg/dL (1.6-2.3); Non-African American GFR(CKD) 87 (>60 ml/min/1.73 sqM); Phosphorus 3.9 mg/dL (2.5-4.5); Potassium 4.4 mmol/L (3.5-5.1); Sodium 139 mmol/L (137-145); Total Bilirubin 0.4 mg/dL (0.2-1.3); Total Protein 6.9 g/dL (6.3-8.2)
[2022-07-09 04:54] LABS: INR 0.9 (<1.2); Partial Thromboplastin Time 27.2 sec (22.0-30.0); Prothrombin Time 9.4 sec (9.0-12.0)
[2022-07-09 05:47] LABS: Erythrocyte Sedimentation Rate 2 mm/hr (0-15)
[2022-07-09] MEDS ORDERED: ONDANSETRON 4 MG/2 ML VIAL IVP PRN (06:40)
[2022-07-09] MEDS ORDERED: MORPHINE SULFATE 4 MG/ML SYRINGE IV PRN (06:40)
[2022-07-09] MEDS ORDERED: NALOXONE 0.4 MG/ML 1 ML VIAL IV PRN (06:40)
[2022-07-09] MEDS ORDERED: SODIUM CHLORIDE 0.9% 1,000 ML IV SCH (06:45)
[2022-07-09] MEDS ORDERED: ENOXAPARIN 40 MG/0.4 ML SYRINGE SQ SCH (09:00)
--- NOTE | 2022-07-09 14:11 | P.DS ---
Providers Date of admission: 07/09/22 06:40 Expected date of discharge: 07/09/22 Attending physician: Leonard Hopper MD Consults: 07/09/22 03:57 Consult Physician Urgent Consulting Provider: Endy Garcia Consult Reason/Comments: L hand cellulitis, possible abscess Do you want consulting provider notified?: Yes Primary care physician: Stated None Hospital Course: Patient is a 47-year-old male with a PMH of seizure disorder who presented to the emergency room with complaints of left hand pain and swelling. The patient reports he has a long-standing history of biting his nails which has led to multiple infections of his fingers requiring drainage. States that his left fifth finger started to swell of roughly 1 week ago, for which he went to [facility] emergency room this past where he was started on Keflex and was discharged home. The patient was again seen there on Thursday and had the left fifth digit drained and was switched to Bactrim. Patient states he has been taking Bactrim since yesterday with no improvement in his pain or swelling. Reports left fifth digit and left hand pain without extension into the arm. Denied fever or chills. Denied chest pain or shortness of breath. Left hand x- ray in the emergency room revealed soft tissue swelling of the little finger with no signs of osteomyelitis or fracture. Case was discussed in detail with the ED physician. Orthopedic surgery evaluated the patient and recommended no surgical intervention. Patient was seen and examined and stated that the swelling in his fifth digit of his left hand has gone down. He is requesting to be discharged home. He is advised to follow-up with his PCP within 1-2 days of discharge. He is advised to follow-up with orthopedic surgery within 1 week of discharge. He is advised to take Bactrim that was prescribed at her previous hospital for the next 7 days. Kemmerer will be prescribed 3 day supply for pain control. Patient verbalized understanding of the plan. Pertinent studies include and x-ray. General: non toxic, no distress, appears at stated age, normal weight Derm: Left fifth digit mild swelling with tenderness involving the digit and the left medial aspect of hand, normal range of motion warm Head: atraumatic, normocephalic, symmetric Eyes: EOMI, no lid lag, anicteric sclera ENT: Nose and ears atraumatic Neck: No cervical lymphadenopathy, trachea midline, supple Mouth: no lip lesion, mucus membranes moist Ext: muscle strength 5 out of 5 in all 4 extremities grossly, no gross muscle atrophy, no contractures, Psych: Alert, oriented, appropriate affect Discharge diagnosis: Left hand cellulitis, failed outpatient treatment Chronic conditions: Seizure disorder Patient Condition at Discharge: Stable Plan - Discharge Summary New Discharge Prescriptions: New HYDROcodone/APAP 5-325MG [Kemmerer 5-325] 1 tab PO Q6HR PRN 3 Days #12 tab PRN Reason: Pain Continue levETIRAcetam [Keppra] 750 mg PO BID Ibuprofen [Motrin] 600 mg PO Q6HR PRN PRN Reason: Pain Sulfamethoxazole/Trimethoprim [Sulfamethoxazole-Tmp Ds Tablet] 2 tab PO BID Discharge Medication List levETIRAcetam [Keppra] 750 mg PO BID 04/16/18 [History] HYDROcodone/APAP 5-325MG [Kemmerer 5-325] 1 tab PO Q6HR PRN 3 Days #12 tab 07/09/22 [Rx] Ibuprofen [Motrin] 600 mg PO Q6HR PRN 07/09/22 [History] Sulfamethoxazole/Trimethoprim [Sulfamethoxazole-Tmp Ds Tablet] 2 tab PO BID 07/09/22 [History] Follow up Appointment(s)/Referral(s): None,Stated [Primary Care Provider] - 1-2 days Endy Garcia MD [STAFF PHYSICIAN] - 1 Week Discharge Disposition: HOME SELF-CARE
--- NOTE | 2022-07-09 14:32 | P.CNOR ---
History of Present Illness - [facility] Consult date: 07/09/22 Consult reason: other History of present illness: Patient states he developed swelling and pain at left little finger about one week ago. He bites his finger nails. He denies injury. He presented to [facility] where it was lanced and placed on antibiotics. He returned 2 days later where he states it was repeated. He presented to [facility] yesterday with continued pain and swelling. He's been on IV abiotics for past 12 hrs. he feels improved some. No fever or chills. No numbness Review of Systems All systems: negative Constitutional: Denies chills, Denies fever Eyes: denies blurred vision, denies pain Ears, nose, mouth and throat: Denies headache, Denies sore throat Cardiovascular: Denies chest pain, Denies shortness of breath Respiratory: Denies cough Gastrointestinal: Denies abdominal pain, Denies diarrhea, Denies nausea, Denies vomiting Musculoskeletal: Denies myalgias Integumentary: Denies pruritus, Denies rash Neurological: Denies numbness, Denies weakness Psychiatric: Denies anxiety, Denies depression Endocrine: Denies fatigue, Denies weight change Past Medical History Past Medical History: Seizure Disorder Additional Past Medical History / Comment(s): -hiatal hernia seen on CT scan",. LAST SEIZURE ABOUT 18 MONTHS AGO History of Any Multi-Drug Resistant Organisms: None Reported Past Surgical History: Orthopedic Surgery Additional Past Surgical History / Comment(s): R arm/R hand surgery d/t injuries. EGD January 20 Past Anesthesia/Blood Transfusion Reactions: No Reported Reaction Additional Past Anesthesia/Blood Transfusion Reaction / Comm: Pt received blood in past without reaction. Past Psychological History: Anxiety, Depression Smoking Status: Current every day smoker Past Alcohol Use History: None Reported Past Drug Use History: None Reported - Past Family History Mother Family Medical History: No Reported History Additional Family Medical History / Comment(s): Mother is healthy. Father History Unknown: Yes Family Medical History: No Reported History Additional Family Medical History / Comment(s): Father is healthy Medications and Allergies Home Medications Medication Instructions Recorded Confirmed Type levETIRAcetam [Keppra] 750 mg PO BID 04/16/18 07/09/22 History HYDROcodone/APAP 5-325MG [Warren 1 tab PO Q6HR PRN 3 Days #12 tab 07/09/22 Rx 5-325] Ibuprofen [Motrin] 600 mg PO Q6HR PRN 07/09/22 07/09/22 History Sulfamethoxazole/Trimethoprim 2 tab PO BID 07/09/22 07/09/22 History [Sulfamethoxazole-Tmp Ds Tablet] Allergies Allergy/AdvReac Type Severity Reaction Status Date / Time No Known Allergies Allergy Verified 07/09/22 07:47 Physical Examination Inspection of left little finger shows a short nail. There is small puncture at dorsum of distal little finer. There is swelling with some mild erythema distally. No proximal erythema. Flexion cascade intact. It is Nontender. Minimal exudate expressed. no bleeding. NVI. No angular or rotational deformity. Normal flexion cascade. There is an intact EPL, FPL, extensor indicis, hand intrinsics and the FDP to the small finger. Intact radial, median and ulnar nerve sensations as well as 2+ radial pulse and brisk capillary refill distally. Results - Labs Labs: Abnormal Lab Results - Last 24 Hours (Table) 07/09/22 Range/Units 03:45 Chloride 109 H (98-107) mmol/L C-Reactive Protein 1.8 H (<1.0) mg/dL H & H 07/09/22 Range/Units 03:45 Hgb 13.6 (13.0-17.5) gm/dL Hct 41.9 (39.0-53.0) % Coagulation 07/09/22 Range/Units 03:45 INR 0.9 (<1.2) Result Diagrams: 07/09/22 03:45 07/09/22 03:45 - Diagnostic results Wrist/Hand x-ray: report reviewed, image reviewed (no fracture, no evidence of osteomyletis) Assessment and Plan (1) Abscess of left little finger Narrative/Plan: There are no plans for immediate surgical intervention. Recommend warm soapy soaks 3x/day, continue IV antibiotics, and monitor. Will follow. Thank you Current Visit: Yes Status: Acute Code(s): L02.512 - CUTANEOUS ABSCESS OF LEFT HAND SNOMED Code(s): [id number] Time with Patient: Less than 30
[2022-07-09 14:50] VITALS: BP 126/71; PULSE 75; TEMP 98
[2022-07-09] MEDS ORDERED: VANCOMYCIN 1,250 MG in SODIUM CHLORIDE 0.9% 250 ML IVPB SCH (17:00)
== END 2022-07-09 14:50 | disposition home or self-care (01) ==
LOC: EC 00:15 → 6NMEDSUR 06:40
PROVIDERS: ADMIT Internal Medicine; ATTEND Internal Medicine
DX: L03.114 Cellulitis of left upper limb (principal); G40.909 Epilepsy, unspecified, not intractable, without status epilepticus; K44.9 Diaphragmatic hernia without obstruction or gangrene; F17.200 Nicotine dependence, unspecified, uncomplicated; F32.A Depression, unspecified; F41.9 Anxiety disorder, unspecified; Z79.899 Other long term (current) drug therapy; Z98.890 Other specified postprocedural states
CPT/HCPCS: 96365; 96366; 96372; 96375; 99284; 99285; 36415; 80053; 85652; 83735; 84100; 85025; 85610; 85730; 86140; 87040; 73130; G0378; J3370; J2270; J0696; J1650

== ENCOUNTER 2023-02-01 11:15 | Emergency (ER) | payer OTHER ==
[2023-02-01 11:30] VITALS: TEMP 99.3
[2023-02-01] MEDS ORDERED: KETOROLAC 15 MG/ML 1 ML VIAL IVP STA (11:54)
[2023-02-01] MEDS ORDERED: ORPHENADRINE 30 MG/ML 2 ML VIAL IVP STA (11:54)
[2023-02-01 12:40] LABS: Basophils % (A) 0 %; Eosinophils # (A) 0.1 k/uL (0-0.7); Eosinophils % (A) 2 %; HCT 46.8 % (39.0-53.0); HGB 15.4 gm/dL (13.0-17.5); Lymphocytes # (A) 1.5 k/uL (1.0-4.8); Lymphocytes % (A) 42 %; MCHC 32.9 g/dL (31.0-37.0); MCV 85.1 fL (80.0-100.0); Monocytes # (A) 0.3 k/uL (0-1.0); Monocytes % (A) 9 %; Neutrophils # (A) 1.5 k/uL (1.3-7.7); Neutrophils % (A) 45 %; Platelet Count 230 k/uL (150-450); RBC 5.49 m/uL (4.30-5.90); RDW 13.8 % (11.5-15.5); WBC 3.5 k/uL (3.8-10.6)
[2023-02-01 13:16] LABS: ALT 18 U/L (4-49); AST 30 U/L (17-59); African American GFR (CKD) >90 (>60 ml/min/1.73 sqM); Albumin 4.6 g/dL (3.5-5.0); Alkaline Phosphatase 82 U/L (38-126); Anion Gap 9 mmol/L; Blood Urea Nitrogen 12 mg/dL (9-20); Calcium 9.4 mg/dL (8.4-10.2); Carbon Dioxide 23 mmol/L (22-30); Chloride 106 mmol/L (98-107); Glucose 96 mg/dL (74-99); Magnesium 2.1 mg/dL (1.6-2.3); Non-African American GFR(CKD) >90 (>60 ml/min/1.73 sqM); Sodium 138 mmol/L (137-145); Total Bilirubin 0.7 mg/dL (0.2-1.3); Total Protein 7.9 g/dL (6.3-8.2)
--- NOTE | 2023-02-01 13:29 | XR ---
EXAMINATION TYPE: XR chest 2V DATE OF EXAM: 02/01/2023 1:18 PM COMPARISON: Chest radiographs from 08/19/2016 TECHNIQUE: XR chest 2V Frontal and lateral views of the chest. CLINICAL INDICATION:Male, 47 years old with history of Chest Pain; FINDINGS: Lungs/Pleura: There is no evidence of pleural effusion, focal consolidation, or pneumothorax. Pulmonary vascularity: Unremarkable. Heart/mediastinum: Cardiomediastinal silhouette is unremarkable. Musculoskeletal: No acute osseous pathology. IMPRESSION: No acute cardiopulmonary disease/process.
[2023-02-01 13:52] LABS: INR 0.9 (<1.2); Partial Thromboplastin Time 24.3 sec (22.0-30.0); Prothrombin Time 9.8 sec (9.0-12.0)
--- NOTE | 2023-02-01 15:00 | CT ---
EXAMINATION TYPE: CT chest angio for PE CT DLP: 338 mGycm, Automated exposure control for dose reduction was used. DATE OF EXAM: 02/01/2023 2:49 PM COMPARISON: . Chest radiograph from same day. CLINICAL INDICATION:Male, 47 years old with history of pain,sob; pain, sob, elevated d dimer. TECHNIQUE/CONTRAST: CTA scan of the thorax is performed with IV Contrast, patient injected with 100ml mL of Isovue 370, p ulmonary embolism protocol. MIP images are created and reviewed. FINDINGS: Pulmonary Artery: There is no evidence for a filling defect within the pulmonary vasculature to sugge st acute pulmonary embolism. The pulmonary artery is of normal size. Lungs/Pleura: No evidence of focal consolidation, pleural effusion or pneumothorax. No suspicious pul monary nodules or masses. Airway: Large airways are patent. Heart: Heart is within normal limits for size.. No pericardial effusion. Vasculature: No evidence of aortic aneurysm. Mediastinum: No evidence of adenopathy. Musculoskeletal: No acute osseous abnormalities Soft Tissues: Unremarkable. Lower neck: No significant findings. Upper Abdomen: No significant findings. IMPRESSION: No evidence of pulmonary embolism or acute thoracic process.
--- NOTE | 2023-02-01 15:19 | ED ---
General Adult HPI - General Chief complaint: Back Pain/Injury Stated complaint: Neck, chest, and back pain Time Seen by Provider: 02/01/23 11:38 Source: patient, RN notes reviewed Mode of arrival: ambulatory Limitations: no limitations - History of Present Illness Initial comments: 47-year-old male presents emergency Department with chief complaint of upper back pain, shoulder chest discomfort. Patient states that started days ago states it's worse with movement. Patient states that he to himself that it did not get better overnight your present emergency department. Patient states that he's been told he has had high blood sugars in the past but no official diagnosis of diabetes. Denies any prior cardiac disease denies headache or dizziness he states he only has pain when he turns a certain way. Denies rashes no anterior chest pain. - Related Data Home Medications Medication Instructions Recorded Confirmed levETIRAcetam [Keppra] 750 mg PO BID 04/16/18 07/09/22 Ibuprofen [Motrin] 600 mg PO Q6HR PRN 07/09/22 07/09/22 Sulfamethoxazole/Trimethoprim 2 tab PO BID 07/09/22 07/09/22 [Sulfamethoxazole-Tmp Ds Tablet] Previous Rx's Medication Instructions Recorded HYDROcodone/APAP 5-325MG [[place] 1 tab PO Q6HR PRN 3 Days #12 tab 07/09/22 5-325] Allergies Allergy/AdvReac Type Severity Reaction Status Date / Time No Known Allergies Allergy Verified 07/09/22 07:47 Review of Systems ROS Statement: Those systems with pertinent positive or pertinent negative responses have been documented in the HPI. ROS Other: All systems not noted in ROS Statement are negative. Past Medical History Past Medical History: Seizure Disorder Additional Past Medical History / Comment(s): -hiatal hernia seen on CT scan",. LAST SEIZURE ABOUT 18 MONTHS AGO History of Any Multi-Drug Resistant Organisms: None Reported Past Surgical History: Orthopedic Surgery Additional Past Surgical History / Comment(s): R arm/R hand surgery d/t injuries. EGD January 20 Past Anesthesia/Blood Transfusion Reactions: No Reported Reaction Additional Past Anesthesia/Blood Transfusion Reaction / Comment(s): Pt received blood in past without reaction. Past Psychological History: Anxiety, Depression Smoking Status: Current every day smoker Past Alcohol Use History: None Reported Past Drug Use History: None Reported - Past Family History Mother Family Medical History: No Reported History Additional Family Medical History / Comment(s): Mother is healthy. Father History Unknown: Yes Family Medical History: No Reported History Additional Family Medical History / Comment(s): Father is healthy General Exam General appearance: alert, in no apparent distress Head exam: Present: atraumatic, normocephalic, normal inspection Eye exam: Present: normal appearance, PERRL, EOMI. Absent: scleral icterus, conjunctival injection, periorbital swelling ENT exam: Present: normal exam, normal oropharynx, mucous membranes moist Neck exam: Present: normal inspection, tenderness, full ROM. Absent: meningism us, lymphadenopathy Respiratory exam: Present: normal lung sounds bilaterally. Absent: respiratory distress, wheezes, rales, rhonchi, stridor Cardiovascular Exam: Present: regular rate, normal rhythm, normal heart sounds. Absent: systolic murmur, diastolic murmur, rubs, gallop, clicks GI/Abdominal exam: Present: soft, normal bowel sounds. Absent: distended, tenderness, guarding, rebound, rigid Extremities exam: Present: normal inspection, full ROM, normal capillary refill. Absent: tenderness, pedal edema, joint swelling, calf tenderness Back exam: Present: full ROM, tenderness, paraspinal tenderness, vertebral tenderness Course Vital Signs 02/01/23 11:23 Temperature 99.3 F Pulse Rate 61 Respiratory 17 Rate Blood Pressure 109/74 O2 Sat by Pulse 97 Oximetry EKG Findings - EKG Comments: EKG Findings:: 00 EKG performed at 12:05 sinus rhythm rate of 62 HI 168 QRS 95 QT/QTC 369/374 - EKG Results: EKG: interpreted by GARY Medical Decision Making - Medical Decision Making Was pt. sent in by a medical professional or institution (, PA, LEAD RECREATION ASSISTANT, urgent care, hospital, or assisted...) When possible be specific @ -No Did you speak to anyone other than the patient for history (EMS, parent, family, police, friend...)? What history was obtained from this source @ -No Did you review nursing and triage notes (agree or disagree)? Why? @ -I reviewed and agree with nursing and triage notes Were old charts reviewed (outside hosp., previous admission, EMS record, old EKG, old radiological studies, urgent care reports/EKG's, assisted records)? Report findings @ -No old charts were reviewed Differential Diagnosis (chest pain, altered mental status, abdominal pain women, abdominal pain men, vaginal bleeding, weakness, fever, dyspnea, syncope, headache, dizziness, GI bleed, back pain, seizure, CVA, palpatations, mental health, musculoskeletal)? @ -Differential Back Pain: Strain, zoster, cauda equina syndrome, epidural abscess, vertebral osteomyelitis, discitis, fracture, subluxation, disc herniation, DJD, spinal stenosis, dissection, AAA, pancreatitis, peptic ulcer disease, pyelonephritis, kidney stone, this is not meant to be an all-inclusive list.e EKG interpreted by me (3pts min.). @ -As above X-rays interpreted by me (1pt min.). @ -Chest x-ray shows no acute current pulmonary process CT interpreted by me (1pt min.). @ -CT chest PE study negative for PE or thoracic process U/S interpreted by me (1pt. min.). @ -None done What testing was considered but not performed or refused? (CT, X-rays, U/S, labs)? Why? @ -None What meds were considered but not given or refused? Why? @ -None Did you discuss the management of the patient with other professionals (professionals i.e. , PA, LEAD RECREATION ASSISTANT, lab, RT, psych nurse, social media intern, beet end supervisor, teacher, tax compliance officer, nurse outreach case manager)? Give summary @ -No Was smoking cessation discussed for >3mins.? @ -No Was critical care preformed (if so, how long)? @ -No Were there social determinants of health that impacted care today? How? (Homelessness, low income, unemployed, alcoholism, drug addiction, transportation, low edu. Level, literacy, decrease access to med. care, fpc, rehab)? @ -No Was there de-escalation of care discussed even if they declined (Discuss DNR or withdrawal of care, Hospice)? DNR status @ -No What co-morbidities impacted this encounter? (DM, HTN, Smoking, COPD, CAD, Cancer, CVA, ARF, Chemo, Hep., AIDS, mental health diagnosis, sleep apnea, morbid obesity)? @ -None Was patient admitted / discharged? Hospital course, mention meds given and route, prescriptions, significant lab abnormalities, going to OR and other pertinent info. @ -Discharge patient presented for back pain and thoracic region which is reproducible worse with movement work was initiated including labs, imaging with no acute findings. Patient is discharged in stable condition return parameters discussed. Undiagnosed new problem with uncertain prognosis? @ -No Drug Therapy requiring intensive monitoring for toxicity (Heparin, Nitro, Insul in, Cardizem)? @ -No Were any procedures done? @ -No Diagnosis/symptom? @ -Thoracic back pain Acute, or Chronic, or Acute on Chronic? @ -Acute Uncomplicated (without systemic symptoms) or Complicated (systemic symptoms)? @ -Uncomplicated Side effects of treatment? @ -No Exacerbation, Progression, or Severe Exacerbation? @ -No Poses a threat to life or bodily function? How? (Chest pain, [place], [place], pneumonia, PE, COPD, DKA, ARF, appy, cholecystitis, CVA, Diverticulitis, Homicidal, Suicidal, threat to staff... and all critical care pts) @ -No - Lab Data Result diagrams: 02/01/23 12:11 02/01/23 12:11 Lab Results 02/01/23 02/01/23 02/01/23 Range/Units 12:11 12:11 12:11 WBC 3.5 L (3.8-10.6) k/uL RBC 5.49 (4.30-5.90) m/uL Hgb 15.4 (13.0-17.5) gm/dL Hct 46.8 (39.0-53.0) % MCV 85.1 (80.0-100.0) fL MCH 28.0 (25.0-35.0) pg MCHC 32.9 (31.0-37.0) g/dL RDW 13.8 (11.5-15.5) % Plt Count 230 (150-450) k/uL MPV 9.0 Neutrophils % 45 % Lymphocytes % 42 % Monocytes % 9 % Eosinophils % 2 % Basophils % 0 % Neutrophils # 1.5 (1.3-7.7) k/uL Lymphocytes # 1.5 (1.0-4.8) k/uL Monocytes # 0.3 (0-1.0) k/uL Eosinophils # 0.1 (0-0.7) k/uL Basophils # 0.0 (0-0.2) k/uL PT 9.8 (9.0-12.0) sec INR 0.9 (<1.2) APTT 24.3 (22.0-30.0) sec D-Dimer 1.20 H (<0.60) mg/L FEU Sodium 138 (137-145) mmol/L Potassium 5.0 (3.5-5.1) mmol/L Chloride 106 (98-107) mmol/L Carbon Dioxide 23 (22-30) mmol/L Anion Gap 9 mmol/L BUN 12 (9-20) mg/dL Creatinine 0.94 (0.66-1.25) mg/dL Est GFR (CKD-EPI)AfAm >90 (>60 ml/min/1.73 sqM) Est GFR (CKD-EPI)NonAf >90 (>60 ml/min/1.73 sqM) Glucose 96 (74-99) mg/dL Calcium 9.4 (8.4-10.2) mg/dL Magnesium 2.1 (1.6-2.3) mg/dL Total Bilirubin 0.7 (0.2-1.3) mg/dL AST 30 (17-59) U/L ALT 18 (4-49) U/L Alkaline Phosphatase 82 (38-126) U/L Troponin I (0.000-0.034) ng/mL Total Protein 7.9 (6.3-8.2) g/dL Albumin 4.6 (3.5-5.0) g/dL 02/01/23 Range/Units 12:11 WBC (3.8-10.6) k/uL RBC (4.30-5.90) m/uL Hgb (13.0-17.5) gm/dL Hct (39.0-53.0) % MCV (80.0-100.0) fL MCH (25.0-35.0) pg MCHC (31.0-37.0) g/dL RDW (11.5-15.5) % Plt Count (150-450) k/uL MPV Neutrophils % % Lymphocytes % % Monocytes % % Eosinophils % % Basophils % % Neutrophils # (1.3-7.7) k/uL Lymphocytes # (1.0-4.8) k/uL Monocytes # (0-1.0) k/uL Eosinophils # (0-0.7) k/uL Basophils # (0-0.2) k/uL PT (9.0-12.0) sec INR (<1.2) APTT (22.0-30.0) sec D-Dimer (<0.60) mg/L FEU Sodium (137-145) mmol/L Potassium (3.5-5.1) mmol/L Chloride (98-107) mmol/L Carbon Dioxide (22-30) mmol/L Anion Gap mmol/L BUN (9-20) mg/dL Creatinine (0.66-1.25) mg/dL Est GFR (CKD-EPI)AfAm (>60 ml/min/1.73 sqM) Est GFR (CKD-EPI)NonAf (>60 ml/min/1.73 sqM) Glucose (74-99) mg/dL Calcium (8.4-10.2) mg/dL Magnesium (1.6-2.3) mg/dL Total Bilirubin (0.2-1.3) mg/dL AST (17-59) U/L ALT (4-49) U/L Alkaline Phosphatase (38-126) U/L Troponin I <0.012 (0.000-0.034) ng/mL Total Protein (6.3-8.2) g/dL Albumin (3.5-5.0) g/dL Disposition Clinical Impression: Thoracic back pain Disposition: HOME SELF-CARE Condition: Stable Instructions (If sedation given, give patient instructions): Back Pain (ED) Additional Instructions: Please return to the Emergency Department if symptoms worsen or any other concerns. Is patient prescribed a controlled substance at d/c from ED?: No Referrals: Lola Egan [Primary Care Provider] - 1-2 days Time of Disposition: 15:17
[2023-02-01 15:34] VITALS: BP 129/73; PULSE 63; RESP 18
== END 2023-02-01 15:36 | disposition home or self-care (01) ==
LOC: EC 11:15
DX: M54.6 Pain in thoracic spine (principal); G40.909 Epilepsy, unspecified, not intractable, without status epilepticus; F17.200 Nicotine dependence, unspecified, uncomplicated; Z79.899 Other long term (current) drug therapy
CPT/HCPCS: 36415; 93005; 85379; 80053; 83735; 84484; 85025; 85610; 85730; 71046; 71275; 99284; 96374; 96375; J2360; J1885; Q9967